=== PATIENT | female | born 1960 | race Caucasian/White ===

== ENCOUNTER → 2016-12-16 | Outpatient (CLI) | payer BC ==
--- NOTE | 2016-12-17 08:50 | MM ---
Reason for exam: screening (asymptomatic). Last mammogram was performed 1 year and 4 months ago. History: Family history of breast cancer in aunt at age 65 and breast cancer in relative. Benign right mammotome panel of the right breast, April 08, 2012. Benign excisional biopsy of the left breast, April 01, 1998. Physical Findings: A clinical breast exam by your physician is recommended on an annual basis and results should be correlated with mammographic findings. MG Screening Mammo w CAD Bilateral CC and MLO view(s) were taken. XCCL view(s) were taken of the right breast. Prior study comparison: August 26, 2015, bilateral MG screening mammo w CAD. March 22, 2012, [facility] DIGITAL RIGHT MAMMOGRAM w/CAD. There are scattered fibroglandular densities. There is no discrete abnormality. No significant changes when compared with prior studies. ASSESSMENT: Negative, BI-RAD 1 RECOMMENDATION: Routine screening mammogram of both breasts in 1 year.
== END | disposition home or self-care (01) ==
LOC: RADMAMWWP 08:25
PROVIDERS: ATTEND Family Medicine
DX: Z12.31 Encounter for screening mammogram for malignant neoplasm of breast (principal)

== ENCOUNTER 2018-09-16 10:49 | Day surgery (SDC) | payer BC ==
[2018-09-14 11:25] VITALS: BMI 41.1
[~2018-09-16 10:49] MED LIST: LACTATED RINGERS 1,000 ML IV SCH; LIDOCAINE 1% 20 ML VIAL (10MG/ML) FOR IV START INTRADERMA PRN
[2018-09-16 11:03] VITALS: RESP 16
[2018-09-16 11:06] VITALS: TEMP 98.4
[2018-09-16] MEDS ORDERED: LIDOCAINE 1% 20 ML VIAL (10MG/ML) FOR IV START INTRADERMA ONE (11:14)
[2018-09-16] MEDS ORDERED: LIDOCAINE 1% INJ 10MG/ML (20 ML MDV) ONE (11:45)
[2018-09-16] MEDS ORDERED: PROPOFOL 10 MG/ML 20 ML VIAL IV ONE (11:45)
[2018-09-16] MEDS ORDERED: GLYCOPYRROLATE 0.2 MG/ML 2 ML VIAL ONE (11:45)
--- NOTE | 2018-09-16 11:57 | P.PCN ---
Date of Procedure: 09/16/18 Procedure(s) Performed: BRIEF HISTORY: Patient is a 57-year-old, pleasant, white female, scheduled for an upper endoscopy as a part of evaluation of long-standing history of GERD and worsening dysphagia for the last few weeks duration. She is maintained on omeprazole 20 mg twice daily.. PROCEDURE PERFORMED: Esophagogastroduodenoscopy with biopsy and dilation. PREOPERATIVE DIAGNOSIS: Long-standing history of GERD/Dysphagia. IV sedation per anesthesia. PROCEDURE: After informed consent was obtained, the patient was brought into the endoscopy unit. IV sedation was administered by Anesthesia under continuous monitoring. Initially the Olympus GIF-140 video endoscope was inserted into the mouth. Esophagus intubated without any difficulty. It was gradually advanced into the stomach and duodenum and carefully examined. The bulb and the second part of the duodenum appeared normal. The scope at this time was withdrawn to the stomach, adequately insufflated with air, and upon careful examination, mucosa of the antrum, body, cardia and the fundus appeared normal. The scope was then withdrawn into the esophagus. The GE junction was located at 39 cm from the incisors. There was a distal esophageal stricture identified and this was dilated using 15 mm TTS balloon for total of 30 seconds. Following this there was mucosal tear with oozing identified and hence further dilation was not performed. The mucosa of the rest of the esophagus had some thickened esophageal folds and longitudinal ridges and furrows suspicious for years of age esophagitis and has multiple biopsies were done from this area. The rest of the esophagus appeared normal Tand the patient tolerated the procedure well. IMPRESSION: 1. Distal esophageal stricture status post balloon dilation using 15 mm TTS balloon as described above. 2. Moderate size hiatal hernia. 3. Thickened esophageal folds in the mid and distal esophagus status post biopsy to rule out eosinophilic esophagitis RECOMMENDATIONS: The findings of this examination were discussed with the patient as well as his family. She was advised to remain on a clear liquid diet and continue with Prilosec 20 mg twice daily and follow antireflux measures. She'll be seen in the office in 6 weeks.
[2018-09-16 12:35] VITALS: BP 128/84; PULSE 93
== END 2018-09-16 12:50 | disposition home or self-care (01) ==
LOC: ORWHC2ENDO 10:49
PROVIDERS: ATTEND Internal Medicine Gastroenterology
DX: K22.2 Esophageal obstruction (principal); K21.0 Gastro-esophageal reflux disease with esophagitis; K44.9 Diaphragmatic hernia without obstruction or gangrene; J45.909 Unspecified asthma, uncomplicated; Z79.899 Other long term (current) drug therapy
CPT/HCPCS: 88305; 88313; 43239; 43249; J2001; J2704; C1726

== ENCOUNTER 2019-02-07 13:47 | Inpatient (IN) | payer BC ==
[2019-02-07] MEDS ORDERED: ACETAMINOPHEN TAB 500 MG TAB PO STA (14:12)
--- NOTE | 2019-02-07 14:18 | ED ---
General Adult HPI - General Chief complaint: Shortness of Breath Stated complaint: LYNNETTE, cough Time Seen by Provider: 02/07/19 13:56 Source: patient, family, RN notes reviewed Mode of arrival: wheelchair Limitations: no limitations - History of Present Illness Initial comments: Patient is a pleasant 58-year-old female presenting to the emergency department with difficulty in breathing. Patient has known history of asthma. Symptoms started bothering her mostly today. Patient does have chills. Patient does have cough with clear sputum. Symptoms are somewhat similar to previous asthma. No leg pain or leg swelling. No chest pain. - Related Data Home Medications Medication Instructions Recorded Confirmed Albuterol Nebulized [Ventolin 2.5 mg INHALATION RT-Q4H PRN 09/07/17 02/07/19 Nebulized] Loratadine [Claritin] 10 mg PO DAILY 09/14/18 02/07/19 Omeprazole 20 mg PO BID 09/14/18 02/07/19 Beclomethasone Dip 80 Mcg/Puff 2 puff INHALATION RT-BID 02/07/19 02/07/19 [Qvar 80 mcg] Montelukast [Singulair] 10 mg PO HS 02/07/19 02/07/19 Allergies Allergy/AdvReac Type Severity Reaction Status Date / Time No Known Allergies Allergy Verified 02/07/19 14:12 Review of Systems ROS Statement: Those systems with pertinent positive or pertinent negative responses have been documented in the HPI. ROS Other: All systems not noted in ROS Statement are negative. Constitutional: Reports: fever, chills Eyes: Denies: eye pain ENT: Denies: ear pain Respiratory: Reports: cough, dyspnea Cardiovascular: Denies: chest pain Endocrine: Reports: fatigue Gastrointestinal: Denies: abdominal pain Genitourinary: Denies: dysuria Musculoskeletal: Denies: back pain Skin: Denies: rash Neurological: Denies: weakness Past Medical History Past Medical History: Asthma, GERD/Reflux Additional Past Medical History / Comment(s): dysphagia History of Any Multi-Drug Resistant Organisms: None Reported Past Surgical History: Breast Surgery Additional Past Surgical History / Comment(s): breast biopsy,EGD Past Anesthesia/Blood Transfusion Reactions: No Reported Reaction Additional Past Anesthesia/Blood Transfusion Reaction / Comment(s): no hx blood transfusion Past Psychological History: No Psychological Hx Reported Smoking Status: Never smoker Past Alcohol Use History: None Reported Past Drug Use History: None Reported - Past Family History Mother Family Medical History: No Reported History General Exam Limitations: no limitations General appearance: alert, in no apparent distress Head exam: Present: atraumatic Eye exam: Present: normal appearance, PERRL ENT exam: Present: normal oropharynx Neck exam: Present: normal inspection Respiratory exam: Present: rhonchi Cardiovascular Exam: Present: tachycardia GI/Abdominal exam: Present: soft. Absent: tenderness, guarding Extremities exam: Present: normal inspection. Absent: pedal edema, calf tenderness Neurological exam: Present: alert Psychiatric exam: Present: normal affect, normal mood Skin exam: Present: normal color Course Vital Signs 02/07/19 02/07/19 13:57 14:50 Temperature 99.0 F Pulse Rate 120 H Respiratory 24 20 Rate Blood Pressure 111/71 O2 Sat by Pulse 95 Oximetry EKG Findings - EKG Comments: EKG Findings:: Sinus tachycardia 122. SD 116. QRS 94. QT 334. QTC 475. Normal axis. Normal QRS. Nonspecific T waves. Medical Decision Making - Medical Decision Making Patient reevaluated and starting to become short of breath again. Patient had an alleged treatment just prior to arrival and originally did not want one however is now receptive. Case was discussed in detail with Dr. Ross, covering for Dr. Walden who did come evaluate patient and will admit. D-dimer returned slightly elevated and computed tomography scan will be ordered. - Lab Data Result diagrams: 02/07/19 14:31 02/07/19 14:31 Lab Results 02/07/19 02/07/19 02/07/19 Range/Units 14:31 14:31 14:31 WBC 13.6 H (3.8-10.6) k/uL RBC 5.34 (3.80-5.40) m/uL Hgb 14.3 (11.4-16.0) gm/dL Hct 44.8 (34.0-46.0) % MCV 83.9 (80.0-100.0) fL MCH 26.7 (25.0-35.0) pg MCHC 31.9 (31.0-37.0) g/dL RDW 15.9 H (11.5-15.5) % Plt Count 303 (150-450) k/uL PT 9.7 (9.0-12.0) sec INR 0.9 (<1.2) APTT 21.1 L (22.0-30.0) sec D-Dimer 0.88 H (<0.60) mg/L FEU Sodium 139 (137-145) mmol/L Potassium 4.7 (3.5-5.1) mmol/L Chloride 105 (98-107) mmol/L Carbon Dioxide 24 (22-30) mmol/L Anion Gap 10 mmol/L BUN 27 H (7-17) mg/dL Creatinine 1.13 H (0.52-1.04) mg/dL Est GFR (CKD-EPI)AfAm 61 (>60 ml/min/1.73 sqM) Est GFR (CKD-EPI)NonAf 53 (>60 ml/min/1.73 sqM) Glucose 170 H (74-99) mg/dL Calcium 8.7 (8.4-10.2) mg/dL Total Bilirubin 1.5 H (0.2-1.3) mg/dL AST 34 (14-36) U/L ALT 24 (9-52) U/L Alkaline Phosphatase 99 (38-126) U/L Total Creatine Kinase (30-135) U/L CK-MB (CK-2) (0.0-2.4) ng/mL CK-MB (CK-2) Rel Index Troponin I (0.000-0.034) ng/mL Total Protein 7.4 (6.3-8.2) g/dL Albumin 4.0 (3.5-5.0) g/dL Influenza Type A RNA (Not Detectd) Influenza Type B (PCR) (Not Detectd) 02/07/19 02/07/19 Range/Units 14:31 14:47 WBC (3.8-10.6) k/uL RBC (3.80-5.40) m/uL Hgb (11.4-16.0) gm/dL Hct (34.0-46.0) % MCV (80.0-100.0) fL MCH (25.0-35.0) pg MCHC (31.0-37.0) g/dL RDW (11.5-15.5) % Plt Count (150-450) k/uL PT (9.0-12.0) sec INR (<1.2) APTT (22.0-30.0) sec D-Dimer (<0.60) mg/L FEU Sodium (137-145) mmol/L Potassium (3.5-5.1) mmol/L Chloride (98-107) mmol/L Carbon Dioxide (22-30) mmol/L Anion Gap mmol/L BUN (7-17) mg/dL Creatinine (0.52-1.04) mg/dL Est GFR (CKD-EPI)AfAm (>60 ml/min/1.73 sqM) Est GFR (CKD-EPI)NonAf (>60 ml/min/1.73 sqM) Glucose (74-99) mg/dL Calcium (8.4-10.2) mg/dL Total Bilirubin (0.2-1.3) mg/dL AST (14-36) U/L ALT (9-52) U/L Alkaline Phosphatase (38-126) U/L Total Creatine Kinase 115 (30-135) U/L CK-MB (CK-2) 0.9 (0.0-2.4) ng/mL CK-MB (CK-2) Rel Index 0.8 Troponin I <0.012 (0.000-0.034) ng/mL Total Protein (6.3-8.2) g/dL Albumin (3.5-5.0) g/dL Influenza Type A RNA Not Detected (Not Detectd) Influenza Type B (PCR) Not Detected (Not Detectd) Disposition Clinical Impression: Asthmatic bronchitis Disposition: ADMITTED IP TO THIS HOSP Is patient prescribed a controlled substance at d/c from ED?: No Referrals: Rudolph Walden III, MD [Primary Care Provider] - 1-2 days Decision Time: 15:28
[2019-02-07 14:54] LABS: Calcium 8.7 mg/dL (8.4-10.2); Total Bilirubin 1.5 mg/dL (0.2-1.3); Total Protein 7.4 g/dL (6.3-8.2)
[2019-02-07 14:59] LABS: Potassium 4.7 mmol/L (3.5-5.1)
[2019-02-07 15:05] LABS: Creatine Kinase 115 U/L (30-135)
--- NOTE | 2019-02-07 15:06 | XR ---
EXAMINATION TYPE: XR chest 2V DATE OF EXAM: 02/07/2019 COMPARISON: NONE HISTORY: History of asthma or shortness of breath and cough. TECHNIQUE: Frontal and lateral views of the chest are obtained. FINDINGS: Overlying EKG leads are present. There is chronic parenchymal change without suspicious foc al air space opacity, pleural effusion, or pneumothorax seen. The cardiac silhouette size is upper l imits of normal. An azygos lobe/fissure is seen. The osseous structures are intact. IMPRESSION: Chronic changes without acute pulmonary process.
[2019-02-07 15:14] LABS: INR 0.9 (<1.2); Partial Thromboplastin Time 21.1 sec (22.0-30.0); Prothrombin Time 9.7 sec (9.0-12.0)
[2019-02-07 15:18] LABS: Creatine Kinase MB 0.9 ng/mL (0.0-2.4); Troponin I <0.012 ng/mL (0.000-0.034)
[2019-02-07 15:19] LABS: Basophils # (A) 0.1 k/uL (0-0.2); Basophils % (A) 1 %; Eosinophils # (A) 0.1 k/uL (0-0.7); Eosinophils % (A) 1 %; HCT 44.8 % (34.0-46.0); HGB 14.3 gm/dL (11.4-16.0); Lymphocytes # (A) 0.3 k/uL (1.0-4.8); Lymphocytes % (A) 2 %; MCH 26.7 pg (25.0-35.0); MCHC 31.9 g/dL (31.0-37.0); MCV 83.9 fL (80.0-100.0); Mean Platelet Volume 7.4; Monocytes # (A) 0.7 k/uL (0-1.0); Monocytes % (A) 5 %; Neutrophils # (A) 12.4 k/uL (1.3-7.7); Neutrophils % (A) 91 %; Platelet Count 303 k/uL (150-450); RBC 5.34 m/uL (3.80-5.40); RDW 15.9 % (11.5-15.5); WBC 13.6 k/uL (3.8-10.6)
[2019-02-07 15:23] LABS: D-Dimer 0.88 mg/L FEU (<0.60)
[2019-02-07] MEDS ORDERED: IPRATROPIUM-ALBUTEROL 3 ML NEB INHALATION STA (15:27)
[2019-02-07] MEDS ORDERED: methylPREDNISolone SOD SUCCI 125 MG/2 ML VIAL IV STA (15:28)
[2019-02-07] MEDS ORDERED: IPRATROPIUM-ALBUTEROL 3 ML NEB INHALATION PRN (15:28)
--- NOTE | 2019-02-07 16:10 | CT ---
EXAMINATION TYPE: CT angio chest DATE OF EXAM: 02/07/2019 COMPARISON: Chest x-ray same date, CT 12/17/2014 HISTORY: dyspnea, cough CT DLP: 7541 mGycm Automated exposure control for dose reduction was used. CONTRAST: CTA scan of the thorax is performed with IV Contrast, patient injected with 80 mL of Isovue 370, pulm onary embolism protocol. MIP images are created and reviewed. 3D reconstructed images are created o n an independent workstation and reviewed. FINDINGS: LUNGS: The lungs are remarkable for groundglass nodularity bilaterally. Calcified nodule present in t he right middle lobe as on prior exam. There is no pleural effusion or pneumothorax seen. The trache obronchial tree is patent. Probable area of scarring in the left lower lobe. Azygos lobe is noted inc identally. AORTA: No additional significant abnormality is seen. MEDIASTINUM: There is satisfactory enhancement of the pulmonary artery however there are segmental br anches which do not show optimal enhancement. There are no greater than 1 cm hilar or mediastinal ly mph nodes. No pericardial effusion is seen. OTHER: There is a hiatal hernia with partial intrathoracic stomach. The liver shows low attenuation possibly due to hepatic steatosis. IMPRESSION: FINDINGS COULD BE RELATED TO MULTIFOCAL BRONCHOPNEUMONIA, CRYPTOGENIC ORGANIZING PNEUMONIA, ATYPICAL PULMONARY EDEMA OR POSSIBLY ALVEOLAR HEMORRHAGE, ATYPICAL INFECTION OR HYPERSENSITIVITY PNEUMONITIS, DRUG TOXICITY, RESPIRATORY BRONCHIOLITIS INTERSTITIAL LUNG DISEASE. NO DEFINITE FILLING DEFECT TO SUG GEST PULMONARY EMBOLISM. DIFFICULT TO EXCLUDE SEGMENTAL PULMONARY EMBOLISM DESCRIBED. ADDITIONAL F INDINGS ABOVE.
[2019-02-07] MEDS ORDERED: TEMAZEPAM 15 MG CAP PO PRN (16:11)
[2019-02-07] MEDS ORDERED: ALPRAZolam 0.25 MG TAB PO PRN (16:11)
[2019-02-07] MEDS ORDERED: AZITHROMYCIN 500 MG in SODIUM CHLORIDE 0.9% 250 ML IVPB STA (16:20)
[2019-02-07] MEDS ORDERED: PNEUMONIA PROTOCOL UTILIZED 1 EACH MISC PO PRN (16:20)
[2019-02-07] MEDS: SODIUM CHLORIDE 0.9% 1,000 ML IV SCH (16:52)
[2019-02-07 17:45] LABS: Glucose,Whole Blood 189 mg/dL (75-99)
[2019-02-07 18:08] VITALS: BMI 42.7
[2019-02-07] MEDS: SODIUM CHLORIDE 0.45% 1,000 ML IV SCH (18:15)
[2019-02-07] MEDS: PANTOPRAZOLE 40 MG TABLET PO SCH (18:16)
[2019-02-07] MEDS: INSULIN ASPART (NovoLOG) 100 UNIT/ML VIAL SQ SCH ×2 (18:16→20:44)
--- NOTE | 2019-02-07 19:24 | HP ---
HISTORY AND PHYSICAL DATE OF SERVICE: 02/07/2019 CHIEF COMPLAINT: Shortness of breath. HISTORY OF PRESENT ILLNESS: This 58-year-old woman with a past medical history of multiple medical problems including history of bronchial asthma, history of GERD, history of dysphagia, history of EGD being followed by Dr. Walden in the outpatient setting, not feeling well over the past several days. The patient also had remote exposure to passive smoking also. The patient had increasing shortness of breath with cough and sputum. Patient came to [facility]. Chest x-ray was done showed evidence of possible interstitial pneumonia. The patient admitted for further evaluation and treatment. There is no history of fever, rigors or chills. No history of headache, loss of consciousness or seizures. PAST MEDICAL HISTORY: Asthma, GERD, dysphagia. MEDICATIONS: Prior to admission, home medications are: 1. QVAR 80 mcg 2 puffs b.i.d. 2. Omeprazole 20 mg b.i.d. 3. Singulair 10 mg q.h.s. 4. Claritin 10 mg daily. 5. Ventolin 2.5 q.4 p.r.n. ALLERGIES: Allergies are none. FAMILY HISTORY: History of heart disease or strokes in family. SOCIAL HISTORY: No history of smoking. History of alcohol in the past. Past exposure to smoking a long time ago. REVIEW OF SYSTEMS: ENT: No diminished hearing. CARDIOVASCULAR as mentioned earlier. RESPIRATORY: As mentioned earlier. GI no nausea or vomiting. no dysuria. NERVOUS SYSTEM: No numbness or weakness. ALLERGY/IMMUNOLOGY: No asthma or hayfever. MUSCULOSKELETAL: As mentioned earlier. HEMATOLOGY/ONCOLOGY: No history of anemia. ENDOCRINE: No history of diabetes. CONSTITUTIONAL: As mentioned earlier. DERMATOLOGY negative. RHEUMATOLOGY is negative. PSYCHIATRIC: Negative. PHYSICAL EXAM: Patient is alert, oriented x3. The pulse is 120, blood pressure 111/71, respiration 24, temperature 99 degrees, pulse ox 94% on room air. HEENT: Conjunctivae normal. NECK: No JVD. CARDIOVASCULAR: S1, S2 muffled. RESPIRATORY: Breath sounds diminished in the bases. Bilateral scattered rhonchi and crackles. Expiratory wheezing also present. ABDOMEN: Soft, nontender. No mass palpable. LEGS: No edema. No swelling. NERVOUS SYSTEM: Higher functions as mentioned earlier. Moves all 4 limbs. No focal motor or sensory deficits. LYMPHATICS: No lymph nodes palpable in the neck, axillae or groin. SKIN: No ulcer, no rash. No bleeding. JOINTS: No active deforming arthropathy. LAB STUDIES: WBC 13.2, hemoglobin 14.3. D-dimer 0.88 and creatinine is 1.13. ASSESSMENT: 1. Acute bronchial asthma acute exacerbation with acute purulent tracheobronchitis or early bronchopneumonia with failure of outpatient treatment. 2. Increased creatinine with possibly mild acute renal failure with acute tubular necrosis and prerenal renal failure. 3. Increased WBC. 4. History of bronchial asthma. 5. Elevated D-dimer. 6. Gastroesophageal reflux disease. 7. Dysphagia history. 8. History of breast biopsy. 9. History of EGD. RECOMMENDATIONS AND DISCUSSION: In this 58-year-old woman who presented with multiple complex medical issues, we will monitor the patient closely, continue the current medications, management and symptomatic treatment. We will initiate broad-spectrum IV antibiotics, steroids, cultures and also consult Dr. Hagan. Resume the home medications. Prognosis guarded because of multiple complex medical illness. Further recommendations to follow. A copy of dictation being forwarded to Dr. Walden who is the primary physician. Discussed with the family at length. MMODL / IJN: [id number] /
[2019-02-07] MEDS: ACETAMINOPHEN TAB 500 MG TAB PO PRN (19:30)
[2019-02-07] MEDS: IPRATROPIUM-ALBUTEROL 3 ML NEB INHALATION SCH (20:14)
[2019-02-07] MEDS: BUDESONIDE 1 MG/2 ML NEBU INHALATION SCH (20:15)
[2019-02-07] MEDS: FORMOTEROL FUMARATE 20 MCG/2 ML NEBU INHALATION SCH (20:15)
[2019-02-07 20:30] LABS: Glucose,Whole Blood 272 mg/dL (75-99)
[2019-02-07] MEDS: HEPARIN SODIUM,PORCINE 5,000 UNIT/ML 1 ML VIAL SQ SCH (20:44)
[2019-02-07] MEDS: MONTELUKAST 10 MG TAB PO SCH (20:45)
[2019-02-07] MEDS: methylPREDNISolone SOD SUCCI 125 MG/2 ML VIAL IV SCH (23:55)
[2019-02-08] MEDS: SODIUM CHLORIDE 0.9% 1,000 ML IV SCH ×4 (03:07→23:22)
[2019-02-08] MEDS: methylPREDNISolone SOD SUCCI 125 MG/2 ML VIAL IV SCH ×4 (05:57→23:22)
[2019-02-08] MEDS: ACETAMINOPHEN TAB 500 MG TAB PO PRN (06:00)
[2019-02-08] MEDS: IPRATROPIUM-ALBUTEROL 3 ML NEB INHALATION SCH ×4 (07:06→20:27)
[2019-02-08] MEDS: BUDESONIDE 1 MG/2 ML NEBU INHALATION SCH ×2 (07:06→20:27)
[2019-02-08] MEDS: FORMOTEROL FUMARATE 20 MCG/2 ML NEBU INHALATION SCH ×2 (07:06→20:28)
[2019-02-08] MEDS ORDERED: PANTOPRAZOLE 40 MG TABLET PO SCH (07:30)
[2019-02-08 08:15] LABS: Basophils % (A) 0 %; Eosinophils % (A) 0 %; HGB 12.3 gm/dL (11.4-16.0); Lymphocytes # (A) 0.8 k/uL (1.0-4.8); Lymphocytes % (A) 4 %; MCH 26.8 pg (25.0-35.0); MCHC 31.6 g/dL (31.0-37.0); MCV 84.9 fL (80.0-100.0); Mean Platelet Volume 6.9; Monocytes # (A) 0.2 k/uL (0-1.0); Monocytes % (A) 1 %; Neutrophils # (A) 18.5 k/uL (1.3-7.7); Neutrophils % (A) 94 %; Platelet Count 366 k/uL (150-450); RDW 15.6 % (11.5-15.5); WBC 19.6 k/uL (3.8-10.6)
[2019-02-08 08:27] LABS: African American GFR (CKD) >90 (>60 ml/min/1.73 sqM); Anion Gap 9 mmol/L; Blood Urea Nitrogen 21 mg/dL (7-17); Calcium 8.1 mg/dL (8.4-10.2); Carbon Dioxide 23 mmol/L (22-30); Chloride 108 mmol/L (98-107); Glucose 171 mg/dL (74-99); Non-African American GFR(CKD) >90 (>60 ml/min/1.73 sqM); Potassium 3.8 mmol/L (3.5-5.1); Sodium 140 mmol/L (137-145)
[2019-02-08] MEDS: HEPARIN SODIUM,PORCINE 5,000 UNIT/ML 1 ML VIAL SQ SCH ×2 (09:04→20:15)
[2019-02-08] MEDS: LORATADINE 10 MG TAB PO SCH (09:04)
[2019-02-08] MEDS: INSULIN ASPART (NovoLOG) 100 UNIT/ML VIAL SQ SCH ×4 (09:04→20:17)
[2019-02-08] MEDS: PANTOPRAZOLE 40 MG TABLET PO SCH ×2 (09:04→17:15)
--- NOTE | 2019-02-08 09:52 | XR ---
EXAMINATION TYPE: XR chest 2V DATE OF EXAM: 02/08/2019 COMPARISON: 02/07/2019 HISTORY: Pneumonia and bronchitis. Follow-up exam. TECHNIQUE: Frontal and lateral views of the chest are obtained. FINDINGS: The groundglass nodules and tree-in-bud opacity seen on the prior CT of 02/07/2019 are bett er distinguish on CT. Interstitial prominence is noted throughout with no focal consolidation. Platel jie right lateral lower lung atelectasis is present. Cardiomediastinal silhouette is within normal li mits. Osseous structures appear intact. IMPRESSION: The infectious or inflammatory process seen on the prior CT of 02/07/2019 is much better demonstrated on CT given the groundglass composition. Radiograph appears similar to the prior of 02/07.
--- NOTE | 2019-02-08 11:26 | P.CNPUL ---
History of Present Illness Consult date: 02/08/19 Requesting physician: Yoselin Ross Reason for consult: dyspnea, abnormal CXR/CT Chief complaint: Shortness of breath, cough, congestion History of present illness: This is a pleasant 58-year-old female patient who follows with Dr. Walden is her primary care physician. She has a history of gastroesophageal reflux disease, obesity, dysphagia, mild intermittent chronic bronchial asthma. She is a lifelong nonsmoker. She was recently seen as a new patient by Dr. Clayton. FEV1 value of 83% of predicted. He initiated her on Qvar and Singulair and she was to return to the office later this month. She presented here to the emergency room yesterday with complaints of increasing shortness of breath, cough and congestion. Chest x-ray revealed chronic changes but no acute pulmonary process. D-dimer slightly elevated and a CT angiogram was performed. There was multifocal bronchopneumonia, cryptogenic organizing pneumonia, atypical pulmonary edema possibly alveolar hemorrhage. Atypical infection or hypersensitivity pneumonitis, drug toxicity, respiratory bronchiolitis interstitial lung disease within the differential. No significant findings for pulmonary embolism. White count 19.6. Hemoglobin 12.3. Creatinine 0.72. She has been initiated on DuoNeb inhalations, Pulmicort and Perforomist inhalations, IV Solu-Medrol. Antibiotics in the form of ceftriaxone and azithromycin. She is seen today in consultation on the regular medical floor. She is awake and alert in no acute distress. She is breathing a bit easier today as compared to yesterday. Maintaining O2 saturations in the 90s on 2 L/m per nasal cannula. She's been afebrile. Hemodynamically stable. Review of Systems REVIEW OF SYSTEMS: CONSTITUTIONAL: Denies any recent significant weight loss or weight gain. EYES: Denies change in vision. EARS, NOSE, MOUTH, THROAT: Denies headaches, denies sore throat. CARDIOVASCULAR: Denies chest pain, palpitations or syncopal episodes. RESPIRATORY: Positive for shortness of breath, cough, congestion no hemoptysis. GASTROINTESTINAL: Denies change in appetite, denies abdominal pain GENITOURINARY: Denies hematuria, denies infections. MUSKULOSKELETAL: Denies pain, denies swelling. INTEGUMENTARY: Denies rash, denies eczema. NEUROLOGICAL: Denies recent memory loss, no recent seizure activity. PSYCHIATRIC: Denies anxiety, denies depression. HEMATOLOGIC/LYMPHATIC: Denies anemia, denies enlarged lymph nodes. Past Medical History Past Medical History: Asthma, GERD/Reflux Additional Past Medical History / Comment(s): dysphagia, asthma History of Any Multi-Drug Resistant Organisms: None Reported Past Surgical History: Breast Surgery Additional Past Surgical History / Comment(s): breast biopsy,EGD for dilatation Past Anesthesia/Blood Transfusion Reactions: No Reported Reaction Additional Past Anesthesia/Blood Transfusion Reaction / Comment(s): no hx blood transfusion Smoking Status: Never smoker - Past Family History Mother Family Medical History: No Reported History Medications and Allergies Home Medications Medication Instructions Recorded Confirmed Type Albuterol Nebulized [Ventolin 2.5 mg INHALATION RT-Q4H PRN 09/07/17 02/07/19 History Nebulized] Loratadine [Claritin] 10 mg PO DAILY 09/14/18 02/07/19 History Omeprazole 20 mg PO BID 09/14/18 02/07/19 History Beclomethasone Dip 80 Mcg/Puff 2 puff INHALATION RT-BID 02/07/19 02/07/19 History [Qvar 80 mcg] Montelukast [Singulair] 10 mg PO HS 02/07/19 02/07/19 History Allergies Allergy/AdvReac Type Severity Reaction Status Date / Time No Known Allergies Allergy Verified 02/07/19 14:12 Physical Exam Vitals: Vital Signs Temp Pulse Pulse Resp BP BP Pulse Ox 02/08/19 07:29 104 H 02/08/19 07:21 100 02/08/19 07:06 104 H 02/08/19 05:21 98.1 F 104 H 16 113/66 97 02/07/19 20:24 80 02/07/19 20:15 80 02/07/19 19:56 97.8 F 109 H 24 115/73 96 02/07/19 18:25 106 H 02/07/19 17:59 98.6 F 107 H 17 114/63 95 02/07/19 17:56 99 02/07/19 16:47 78 16 110/63 99 02/07/19 16:01 109 H 02/07/19 15:55 110 H 02/07/19 14:50 20 02/07/19 13:57 99.0 F 120 H 24 111/71 95 Intake and Output 02/07/19 02/08/1902/08/19 22:59 06:59 14:59 Intake Total 565 1598 Balance 565 1598 Intake: Intake, IV Titration 565 1008 Amount Azithromycin 500 mg In 250 Sodium Chloride 0.9% 250 ml @ 250 mls/hr IVPB ONCE STA Rx#:[id number] Sodium Chloride 0.9% 1, 315 1008 000 ml @ 126 mls/hr IV . Q7H57M FRANCES Rx#:[id number] Oral 590 Other: Voiding Method Toilet Toilet # Voids 2 3 GENERAL EXAM: Alert, pleasant 58-year-old female patient, comfortable in no apparent distress. On 2 L nasal cannula. HEAD: Normocephalic. EYES: Normal reaction of pupils, equal size. NOSE: Clear with pink turbinates. THROAT: No erythema or exudates. NECK: No masses, no JVD. CHEST: No chest wall deformity. LUNGS: Equal air entry with end expiratory wheeze, few basilar crackles. CVS: S1 and S2 normal with no audible murmur, regular rhythm. ABDOMEN: No hepatosplenomegaly, normal bowel sounds, no guarding or rigidity. SPINE: No scoliosis or deformity SKIN: No rashes CENTRAL NERVOUS SYSTEM: No focal deficits, tone is normal in all 4 extremities. EXTREMITIES: There is no peripheral edema. No clubbing, no cyanosis. Peripheral pulses are intact. Results - Laboratory Findings CBC and BMP: 02/08/19 07:42 02/08/19 07:42 PT/INR, D-dimer PT 9.7 sec (9.0-12.0) 02/07/19 14:31 INR 0.9 (<1.2) 02/07/19 14:31 D-Dimer 0.88 mg/L FEU (<0.60) H 02/07/19 14:31 Abnormal lab findings: Abnormal Labs 02/07/19 02/07/19 02/07/19 14:31 14:31 14:31 WBC 13.6 H RDW 15.9 H Neutrophils # 12.4 H Lymphocytes # 0.3 L APTT 21.1 L D-Dimer 0.88 H Chloride BUN 27 H Creatinine 1.13 H Glucose 170 H POC Glucose (mg/dL) Plasma Lactic Acid Hari Calcium Total Bilirubin 1.5 H 02/07/19 02/07/19 02/07/19 16:40 17:43 20:29 WBC RDW Neutrophils # Lymphocytes # APTT D-Dimer Chloride BUN Creatinine Glucose POC Glucose (mg/dL) 189 H 272 H Plasma Lactic Acid Hari 3.2 H* Calcium Total Bilirubin 02/07/19 02/08/19 02/08/19 20:35 07:42 07:42 WBC 19.6 H RDW 15.6 H Neutrophils # 18.5 H Lymphocytes # 0.8 L APTT D-Dimer Chloride 108 H BUN 21 H Creatinine Glucose 171 H POC Glucose (mg/dL) Plasma Lactic Acid Hari 3.7 H* Calcium 8.1 L Total Bilirubin 02/08/19 07:42 WBC RDW Neutrophils # Lymphocytes # APTT D-Dimer Chloride BUN Creatinine Glucose POC Glucose (mg/dL) Plasma Lactic Acid Hari 2.2 H* Calcium Total Bilirubin - Diagnostic Findings Chest x-ray: image reviewed CT scan - chest: image reviewed Assessment and Plan Assessment: Impression: #1 Acute exacerbation of mild intermittent chronic bronchial asthma, complicated by nonspecific pneumonitis. #2 Leukocytosis secondary to above. #3 Gastroesophageal reflux disease. #4 History of dysphagia with previous EGD. #5 Lifelong nonsmoker. Plan: The patient was seen and evaluated by Dr. Hagan. Chest x-rays, computed tomography scan and labs all reviewed. Suspect some nonspecific pneumonitis. We will go ahead and continue with the steroids. Follow-up CAT scan in 2 weeks' time. Obtain connective tissue workup including YESENIA level, CRP, RA, IONA and CPK levels, CCP antibodies. In the interim, we'll continue with DuoNeb inhalations, Pulmicort and Perforomist inhalations, Singulair, IV Solu-Medrol, antibiotics in the form of ceftriaxone and azithromycin. We will continue to follow and make further recommendations based on her clinical status. I, the cosigning physician, performed a history & physical examination of the patient. Lungs sounds with end expiratory wheeze, few scattered crackles in the bases. Maintaining good O2 saturations in the 90s on 2 L/m per nasal cannula. I discussed the assessment and plan of care with my nurse practitioner, Perlita Perkins. I attest to the above note as dictated by her. Time with Patient: Greater than 30
[2019-02-08 11:47] LABS: Glucose,Whole Blood 214 mg/dL (75-99)
[2019-02-08 12:51] LABS: C Reactive Protein 149.7 mg/L (<10.0)
--- NOTE | 2019-02-08 15:02 | PN ---
PROGRESS NOTE DATE OF SERVICE: 02/08/2019 This is a 58-year-old woman who was admitted with acute bronchial asthma, acute exacerbation, acute purulent tracheobronchitis, early bronchopneumonia with failure of outpatient treatment, also had elevated creatinine, possibly mild acute renal failure with acute tubular necrosis with prerenal failure. The patient will be closely monitored at this time. The patient is feeling slightly better. Chest x-ray repeated today which is personally reviewed by me showed some increased bronchovascular markings in the right lower part. No chest pain, no palpitation. PHYSICAL EXAM: Alert and oriented x3. Pulse is 72, blood pressure 130/60, respiration 16, temperature 98 degrees, pulse ox 94% on 2 L. HEENT: Conjunctivae normal. NECK: No jugular venous distension. CARDIOVASCULAR: S1, S2, muffled. RESPIRATION: Breath sounds diminished at the bases, scattered rhonchi, no crackles. ABDOMEN: Soft, nontender. LEGS: No edema, no swelling. NERVOUS SYSTEM: No focal deficits. LAB STUDIES: WBC is 19.2, hemoglobin is 12.3. Lactic acid 2.2 and 2.9. C-reactive protein is 149. ASSESSMENT: 1. Acute bronchial asthma, acute exacerbation with acute purulent tracheobronchitis or early bronchopneumonia in the lower lobes, right more the left with failure of outpatient treatment. 2. Elevated lactic acid with possible sepsis, present on admission. 3. Increased creatinine with possible mild acute renal failure with acute tubular necrosis, prerenal renal failure. 4. Increased WBC. 5. History of bronchial asthma. 6. Elevated D-dimer. 7. Gastroesophageal reflux disease. 8. Dysphagia history. 9. History of breast biopsy. 10.History of EGD. RECOMMENDATION: Recommend to continue current management and symptomatic treatment. Continue with the broad-spectrum IV antibiotics. Continue steroids. Continue with cautious IV fluids, otherwise Dr. Hagan has seen the patient and continue to monitor chest was reviewed. Prognosis guarded. Further recommendations to follow. Clinically, she is feeling slightly better though. Further recommendations to follow. Connective tissue workup was also recommended by Dr. Hagan. Further recommendations to follow. MMODL / IJN: [id number] /
--- NOTE | 2019-02-08 15:28 | P.CONS ---
History of Present Illness - Reason for Consult Consult date: 02/08/19 sepsis Requesting physician: Yoselin Ross - Chief Complaint Shortness of breath and cough 1 day - History of Present Illness Patient is a 58 year female with a past medical history significant for asthmatic bronchitis presenting to the ER at [facility] yesterday which she complains of increased shortness of breath and cough 1 day the patient says she was not feeling well for few days prior to yesterday however it hit her hard yesterday to the point that she couldn't breathe the patient did have a mild cough which has been mostly dry in nature. Denies having any pleuritic chest pain and no URI symptoms no nausea no vomiting and no abdominal pain no diarrhea and no choking on the food patient did have some chills with these symptoms the patient was evaluated by the physician, on arrival to the patient did have low-grade fever of 99 the patient did have elevated white count 13.6 that is up to 19.6 today, the patient did have a chest x-ray that did not show any acute changes the patient had did have C D'Evelio that was negative for PE however did shows evidence of multifocal bronchopneumonia/cryptogenic organizing pneumonia, the patient is currently being treated with Rocephin and Zithromax and Solu-Medrol infectious disease was consulted for further recommendation regarding antibiotic therapy, patient denies any history of recent antibiotic exposure or hospitalization Review of Systems Positive point has been mentioned in the HPI rest of the systems are negative Past Medical History Past Medical History: Asthma, GERD/Reflux Additional Past Medical History / Comment(s): dysphagia, asthma History of Any Multi-Drug Resistant Organisms: None Reported Past Surgical History: Breast Surgery Additional Past Surgical History / Comment(s): breast biopsy,EGD for dilatation Past Anesthesia/Blood Transfusion Reactions: No Reported Reaction Additional Past Anesthesia/Blood Transfusion Reaction / Comm: no hx blood transfusion Smoking Status: Never smoker - Past Family History Mother Family Medical History: No Reported History Medications and Allergies Home Medications Medication Instructions Recorded Confirmed Type Albuterol Nebulized [Ventolin 2.5 mg INHALATION RT-Q4H PRN 09/07/17 02/07/19 History Nebulized] Loratadine [Claritin] 10 mg PO DAILY 09/14/18 02/07/19 History Omeprazole 20 mg PO BID 09/14/18 02/07/19 History Beclomethasone Dip 80 Mcg/Puff 2 puff INHALATION RT-BID 02/07/19 02/07/19 History [Qvar 80 mcg] Montelukast [Singulair] 10 mg PO HS 02/07/19 02/07/19 History Allergies Allergy/AdvReac Type Severity Reaction Status Date / Time No Known Allergies Allergy Verified 02/07/19 14:12 Physical Exam Vitals: Vital Signs Temp Pulse Pulse Resp BP BP Pulse Ox 02/08/19 11:26 96 02/08/19 11:13 92 02/08/19 08:00 72 16 02/08/19 07:29 104 H 02/08/19 07:21 100 02/08/19 07:06 104 H 02/08/19 07:00 98 F 72 16 113/69 95 02/08/19 05:21 98.1 F 104 H 16 113/66 97 02/07/19 20:24 80 02/07/19 20:15 80 02/07/19 19:56 97.8 F 109 H 24 115/73 96 02/07/19 18:25 106 H 02/07/19 17:59 98.6 F 107 H 17 114/63 95 02/07/19 17:56 99 02/07/19 16:47 78 16 110/63 99 02/07/19 16:01 109 H 02/07/19 15:55 110 H 02/07/19 14:50 20 Intake and Output 02/07/19 02/08/19 02/08/19 22:59 06:59 14:59 Intake Total 565 1598 1008 Balance 565 1598 1008 Intake: Intake, IV Titration 565 1008 1008 Amount Azithromycin 500 mg In 250 Sodium Chloride 0.9% 250 ml @ 250 mls/hr IVPB ONCE STA Rx#:[id number] Sodium Chloride 0.9% 1, 315 1008 1008 000 ml @ 126 mls/hr IV . Q7H57M [facility] Rx#:[id number] Oral 590 Other: Voiding Method Toilet Toilet Toilet # Voids 2 3 GENERAL DESCRIPTION: Middle-aged female lying in bed, no distress. No tachypnea or accessory muscle of respiration use. HEENT: Shows Pallor , no scleral icterus. Oral mucous membrane is dry. No pharyngeal erythema or thrush NECK: Trachea central, no thyromegaly. LUNGS: Unlabored breathing. Decreased intensity of breath sounds. No wheeze or crackle. HEART: S1, S2, regular rate and rhythm. No loud murmur ABDOMEN: Soft, no tenderness , guarding or rigidity, no organomegaly EXTREMITIES: No edema of feet. SKIN: No rash, no masses palpable. NEUROLOGICAL: The patient is awake, alert, oriented x3, mood and affect normal. Results CBC & Chem 7: 02/08/19 07:42 02/08/19 07:42 Labs: Abnormal Lab Results - Last 24 Hours (Table) 02/07/19 02/07/19 02/07/19 Range/Units 14:31 14:31 14:31 WBC 13.6 H (3.8-10.6) k/uL RDW 15.9 H (11.5-15.5) % Neutrophils # 12.4 H (1.3-7.7) k/uL Lymphocytes # 0.3 L (1.0-4.8) k/uL APTT 21.1 L (22.0-30.0) sec D-Dimer 0.88 H (<0.60) mg/L FEU Chloride (98-107) mmol/L BUN 27 H (7-17) mg/dL Creatinine 1.13 H (0.52-1.04) mg/dL Glucose 170 H (74-99) mg/dL POC Glucose (mg/dL) (75-99) mg/dL Plasma Lactic Acid Hari (0.7-2.0) mmol/L Calcium (8.4-10.2) mg/dL Total Bilirubin 1.5 H (0.2-1.3) mg/dL C-Reactive Protein (<10.0) mg/L 02/07/19 02/07/19 02/07/19 Range/Units 16:40 17:43 20:29 WBC (3.8-10.6) k/uL RDW (11.5-15.5) % Neutrophils # (1.3-7.7) k/uL Lymphocytes # (1.0-4.8) k/uL APTT (22.0-30.0) sec D-Dimer (<0.60) mg/L FEU Chloride (98-107) mmol/L BUN (7-17) mg/dL Creatinine (0.52-1.04) mg/dL Glucose (74-99) mg/dL POC Glucose (mg/dL) 189 H 272 H (75-99) mg/dL Plasma Lactic Acid Hari 3.2 H* (0.7-2.0) mmol/L Calcium (8.4-10.2) mg/dL Total Bilirubin (0.2-1.3) mg/dL C-Reactive Protein (<10.0) mg/L 02/07/19 02/08/19 02/08/19 Range/Units 20:35 07:42 07:42 WBC 19.6 H (3.8-10.6) k/uL RDW 15.6 H (11.5-15.5) % Neutrophils # 18.5 H (1.3-7.7) k/uL Lymphocytes # 0.8 L (1.0-4.8) k/uL APTT (22.0-30.0) sec D-Dimer (<0.60) mg/L FEU Chloride 108 H (98-107) mmol/L BUN 21 H (7-17) mg/dL Creatinine (0.52-1.04) mg/dL Glucose 171 H (74-99) mg/dL POC Glucose (mg/dL) (75-99) mg/dL Plasma Lactic Acid Hari 3.7 H* (0.7-2.0) mmol/L Calcium 8.1 L (8.4-10.2) mg/dL Total Bilirubin (0.2-1.3) mg/dL C-Reactive Protein (<10.0) mg/L 02/08/19 02/08/19 02/08/19 Range/Units 07:42 11:46 11:56 WBC (3.8-10.6) k/uL RDW (11.5-15.5) % Neutrophils # (1.3-7.7) k/uL Lymphocytes # (1.0-4.8) k/uL APTT (22.0-30.0) sec D-Dimer (<0.60) mg/L FEU Chloride (98-107) mmol/L BUN (7-17) mg/dL Creatinine (0.52-1.04) mg/dL Glucose (74-99) mg/dL POC Glucose (mg/dL) 214 H (75-99) mg/dL Plasma Lactic Acid Hari 2.2 H* (0.7-2.0) mmol/L Calcium (8.4-10.2) mg/dL Total Bilirubin (0.2-1.3) mg/dL C-Reactive Protein 149.7 H (<10.0) mg/L 02/08/19 Range/Units 12:00 WBC (3.8-10.6) k/uL RDW (11.5-15.5) % Neutrophils # (1.3-7.7) k/uL Lymphocytes # (1.0-4.8) k/uL APTT (22.0-30.0) sec D-Dimer (<0.60) mg/L FEU Chloride (98-107) mmol/L BUN (7-17) mg/dL Creatinine (0.52-1.04) mg/dL Glucose (74-99) mg/dL POC Glucose (mg/dL) (75-99) mg/dL Plasma Lactic Acid Hari 2.9 H* (0.7-2.0) mmol/L Calcium (8.4-10.2) mg/dL Total Bilirubin (0.2-1.3) mg/dL C-Reactive Protein (<10.0) mg/L Assessment and Plan Assessment: 1-patient presented to hospital with increasing shortness of breath patient also have a cough which has been mostly dry in nature no URI symptoms and no GI symptoms with evidence of a focal pneumonia on the CT angiogram and likely community-acquired in this patient who has not been exposed to any antibiotic in the recent past not at risk of resistant gram-positive or gram-negative infection (1) Bronchopneumonia Current Visit: Yes Status: Acute Code(s): J18.0 - BRONCHOPNEUMONIA, UNSPECIFIED ORGANISM SNOMED Code(s): 119653810 Plan: 1-we will try to obtain sputum for Gram stain and culture 2-check urine for Legionella antigen 3-Rocephin 1 g daily and Zithromax to continue along with steroids and bronchodilators per pulmonary We will follow on clinical condition and cultures to further adjust medication if needed Thank you for this consultation will follow this patient with you Time with Patient: Greater than 30
[2019-02-08 16:38] LABS: Appearance,Urine Clear (Clear); Bilirubin,Urine Negative (Negative); Blood,Urine Negative (Negative); Color,Urine Light Yellow; Glucose,Urine (UA) 3+ (Negative); Ketones,Urine Negative (Negative); Leukocyte Esterase,Urine Negative (Negative); Nitrite,Urine Negative (Negative); Protein,Urine Negative (Negative); Specific Gravity,Urine 1.012 (1.001-1.035); Urobilinogen,Urine <2.0 mg/dL (<2.0)
[2019-02-08 16:47] LABS: Cyclic Citrull Pep IgG Unit <0.5 U/mL; Cyclic Citrullinated Pep IgG NEGATIVE (NEGATIVE)
[2019-02-08 16:58] LABS: Glucose,Whole Blood 165 mg/dL (75-99)
[2019-02-08] MEDS ORDERED: AZITHROMYCIN 500 MG TAB PO SCH (17:00)
[2019-02-08] MEDS: SODIUM CHLORIDE 0.45% 1,000 ML IV SCH (17:25)
[2019-02-08 19:57] LABS: Glucose,Whole Blood 262 mg/dL (75-99)
[2019-02-08] MEDS: MONTELUKAST 10 MG TAB PO SCH (20:15)
[2019-02-09] MEDS: ACETAMINOPHEN TAB 500 MG TAB PO PRN (03:38)
[2019-02-09] MEDS: methylPREDNISolone SOD SUCCI 125 MG/2 ML VIAL IV SCH ×2 (06:02→12:53)
[2019-02-09 06:56] LABS: Glucose,Whole Blood 151 mg/dL (75-99)
[2019-02-09] MEDS: INSULIN ASPART (NovoLOG) 100 UNIT/ML VIAL SQ SCH ×2 (08:09→12:53)
[2019-02-09] MEDS: LORATADINE 10 MG TAB PO SCH (08:10)
[2019-02-09] MEDS: PANTOPRAZOLE 40 MG TABLET PO SCH (08:10)
[2019-02-09] MEDS: HEPARIN SODIUM,PORCINE 5,000 UNIT/ML 1 ML VIAL SQ SCH (08:10)
[2019-02-09] MEDS: FORMOTEROL FUMARATE 20 MCG/2 ML NEBU INHALATION SCH (08:50)
[2019-02-09] MEDS: IPRATROPIUM-ALBUTEROL 3 ML NEB INHALATION SCH ×2 (08:50→13:06)
[2019-02-09] MEDS: BUDESONIDE 1 MG/2 ML NEBU INHALATION SCH (08:50)
[2019-02-09 08:53] LABS: Basophils % (A) 0 %; Eosinophils % (A) 0 %; HCT 34.5 % (34.0-46.0); HGB 11.4 gm/dL (11.4-16.0); Lymphocytes # (A) 0.5 k/uL (1.0-4.8); Lymphocytes % (A) 3 %; MCH 27.8 pg (25.0-35.0); MCV 84.2 fL (80.0-100.0); Mean Platelet Volume 6.9; Monocytes # (A) 0.3 k/uL (0-1.0); Monocytes % (A) 2 %; Neutrophils # (A) 15.2 k/uL (1.3-7.7); Neutrophils % (A) 94 %; Platelet Count 349 k/uL (150-450); RBC 4.11 m/uL (3.80-5.40); RDW 14.8 % (11.5-15.5); WBC 16.1 k/uL (3.8-10.6)
[2019-02-09 09:09] LABS: African American GFR (CKD) >90 (>60 ml/min/1.73 sqM); Anion Gap 7 mmol/L; Blood Urea Nitrogen 19 mg/dL (7-17); Calcium 7.8 mg/dL (8.4-10.2); Carbon Dioxide 22 mmol/L (22-30); Chloride 111 mmol/L (98-107); Glucose 150 mg/dL (74-99); Non-African American GFR(CKD) >90 (>60 ml/min/1.73 sqM); Potassium 4.3 mmol/L (3.5-5.1); Sodium 140 mmol/L (137-145)
--- NOTE | 2019-02-09 11:07 | P.PN ---
Subjective Progress Note Date: 02/09/19 Principal diagnosis: Acute exacerbation of mild intermittent chronic bronchial asthma, complicated by nonspecific pneumonitis. This is a pleasant 58-year-old female patient who follows with Dr. Walden is her primary care physician. She has a history of gastroesophageal reflux disease, obesity, dysphagia, mild intermittent chronic bronchial asthma. She is a lifelong nonsmoker. She was recently seen as a new patient by Dr. Clayton. FEV1 value of 83% of predicted. He initiated her on Qvar and Singulair and she was to return to the office later this month. She presented here to the emergency room yesterday with complaints of increasing shortness of breath, cough and congestion. Chest x-ray revealed chronic changes but no acute pulmonary process. D-dimer slightly elevated and a CT angiogram was performed. There was multifocal bronchopneumonia, cryptogenic organizing pneumonia, atypical pulmonary edema possibly alveolar hemorrhage. Atypical infection or hypersensit ivity pneumonitis, drug toxicity, respiratory bronchiolitis interstitial lung disease within the differential. No significant findings for pulmonary embolism. White count 19.6. Hemoglobin 12.3. Creatinine 0.72. She has been initiated on DuoNeb inhalations, Pulmicort and Perforomist inhalations, IV Solu- Medrol. Antibiotics in the form of ceftriaxone and azithromycin. She is seen today in consultation on the regular medical floor. She is awake and alert in no acute distress. She is breathing a bit easier today as compared to yesterday. Maintaining O2 saturations in the 90s on 2 L/m per nasal cannula. She's been afebrile. Hemodynamically stable. The patient is seen today in 02/09/2019 in follow-up on the regular medical floor. She is awake and alert in no acute distress. Breathing better today as compared to yesterday. She's been up ambulating in the hallway. She continues w ith a dry nonproductive cough. She is maintaining O2 saturations in the 90s on 2 L/m per nasal cannula. She's afebrile. Blood and urine cultures reveal no growth to date. White count 16.1. Hemoglobin 11.4. Creatinine 0.68. Suspect not nonspecific pneumonitis. IONA screen is positive. C-reactive protein high at 149. Rheumatoid factor within normal limits. Cyclic citrullinated peptide screen negative. She remains on ceftriaxone and azithromycin along with her pulmonary medications including IV Solu-Medrol, DuoNeb's, Pulmicort and Perforomist inhalations. Objective - Vital Signs Vital signs: Vital Signs Temp 97.5 F L 02/09/19 03:55 Pulse 102 H 02/09/19 09:14 Resp 16 02/09/19 03:55 BP 120/70 02/09/19 03:55 Pulse Ox 94 L 02/09/19 03:55 Intake & Output 02/08/19 02/09/19 02/09/19 18:59 06:59 18:59 Intake Total 1008 1449 Balance 1008 1449 Intake: Intake, IV Titration 1008 1449 Amount Sodium Chloride 0.9% 1, 1008 1449 000 ml @ 126 mls/hr IV . Q7H57M [facility] Rx#:[id number] Other: Voiding Method Toilet Toilet # Voids 3 2 - Exam GENERAL EXAM: Alert, active, pleasant 58-year-old female, comfortable in no apparent distress. HEAD: Normocephalic. EYES: Normal reaction of pupils, equal size. NOSE: Clear with pink turbinates. THROAT: No erythema or exudates. NECK: No masses, no JVD. CHEST: No chest wall deformity. LUNGS: Equal air entry with no crackles, wheeze, rhonchi or dullness. CVS: S1 and S2 normal with no audible murmur, regular rhythm. ABDOMEN: No hepatosplenomegaly, normal bowel sounds, no guarding or rigidity. SPINE: No scoliosis or deformity SKIN: No rashes CENTRAL NERVOUS SYSTEM: No focal deficits, tone is normal in all 4 extremities. EXTREMITIES: There is no peripheral edema. No clubbing, no cyanosis. Peripheral pulses are intact. - Labs CBC & Chem 7: 02/09/19 07:40 02/09/19 07:40 Labs: Abnormal Lab Results - Last 24 Hours (Table) 02/08/19 02/08/19 02/08/19 Range/Units 07:42 11:46 11:56 WBC (3.8-10.6) k/uL Neutrophils # (1.3-7.7) k/uL Lymphocytes # (1.0-4.8) k/uL ESR 24 H (0-20) mm/hr Chloride (98-107) mmol/L BUN (7-17) mg/dL Glucose (74-99) mg/dL POC Glucose (mg/dL) 214 H (75-99) mg/dL Plasma Lactic Acid Hari (0.7-2.0) mmol/L Calcium (8.4-10.2) mg/dL C-Reactive Protein 149.7 H (<10.0) mg/L Urine Glucose (UA) (Negative) IONA Screen (NEGATIVE) 02/08/19 02/08/19 02/08/19 Range/Units 11:56 12:00 13:59 WBC (3.8-10.6) k/uL Neutrophils # (1.3-7.7) k/uL Lymphocytes # (1.0-4.8) k/uL ESR (0-20) mm/hr Chloride (98-107) mmol/L BUN (7-17) mg/dL Glucose (74-99) mg/dL POC Glucose (mg/dL) (75-99) mg/dL Plasma Lactic Acid Hari 2.9 H* (0.7-2.0) mmol/L Calcium (8.4-10.2) mg/dL C-Reactive Protein (<10.0) mg/L Urine Glucose (UA) 3+ H (Negative) IONA Screen POSITIVE H (NEGATIVE) 02/08/19 02/08/19 02/08/19 Range/Units 16:12 16:56 19:56 WBC (3.8-10.6) k/uL Neutrophils # (1.3-7.7) k/uL Lymphocytes # (1.0-4.8) k/uL ESR (0-20) mm/hr Chloride (98-107) mmol/L BUN (7-17) mg/dL Glucose (74-99) mg/dL POC Glucose (mg/dL) 165 H 262 H (75-99) mg/dL Plasma Lactic Acid Hari 2.7 H* (0.7-2.0) mmol/L Calcium (8.4-10.2) mg/dL C-Reactive Protein (<10.0) mg/L Urine Glucose (UA) (Negative) IONA Screen (NEGATIVE) 02/09/19 02/09/19 02/09/19 Range/Units 06:55 07:40 07:40 WBC 16.1 H (3.8-10.6) k/uL Neutrophils # 15.2 H (1.3-7.7) k/uL Lymphocytes # 0.5 L (1.0-4.8) k/uL ESR (0-20) mm/hr Chloride 111 H (98-107) mmol/L BUN 19 H (7-17) mg/dL Glucose 150 H (74-99) mg/dL POC Glucose (mg/dL) 151 H (75-99) mg/dL Plasma Lactic Acid Hrai (0.7-2.0) mmol/L Calcium 7.8 L (8.4-10.2) mg/dL C-Reactive Protein (<10.0) mg/L Urine Glucose (UA) (Negative) IONA Screen (NEGATIVE) Microbiology - Last 24 Hours (Table) 02/08/19 13:59 Urine Culture - Preliminary Urine,Voided 02/07/19 14:31 Blood Culture - Preliminary Blood No Growth after 24 hours Assessment and Plan Assessment: Impression: #1 Acute exacerbation of mild intermittent chronic bronchial asthma, complicated by nonspecific pneumonitis. IONA screen is positive. C-reactive protein is high at 149. #2 Leukocytosis secondary to above. #3 Gastroesophageal reflux disease. #4 History of dysphagia with previous EGD. #5 Lifelong nonsmoker. Plan: The patient was seen and evaluated by Dr. Hagan. She is cleared for discharge from the pulmonary standpoint. Complete a course of antibiotics. Complete a course of prednisone burst and taper starting at 40 mg daily for 4 days. Suspec t some nonspecific pneumonitis. IONA screen is positive. C-reactive protein high at 149.7. Follow-up CAT scan in 2 weeks' time. She'll keep her scheduled appointment with Dr. Clayton a week from tomorrow. She is encouraged to call sooner with any recurrence of symptoms or other questions or concerns. I, the cosigning physician, performed a history & physical examination of the patient. Lungs sounds with end expiratory wheeze, few scattered crackles in the bases. Maintaining good O2 saturations in the 90s on 2 L/m per nasal cannula. I discussed the assessment and plan of care with my nurse practitioner, Perlita Perkins. I attest to the above note as dictated by her.
[2019-02-09 11:10] LABS: ANA Pattern See Footnote
[2019-02-09 11:35] LABS: Glucose,Whole Blood 179 mg/dL (75-99)
[2019-02-09 12:00] VITALS: BP 106/68; RESP 18; TEMP 97.8
[2019-02-09 13:19] VITALS: PULSE 100
[2019-02-09] MEDS: SODIUM CHLORIDE 0.9% 1,000 ML IV SCH (13:33)
--- NOTE | 2019-02-09 19:29 | PN ---
PROGRESS NOTE DATE OF SERVICE: 02/09/2019 REASON FOR FOLLOWUP: Pneumonia. INTERVAL HISTORY: The patient was seen on rounds this morning. The patient has been afebrile. She is breathing more comfortably. Denies having any chest pain. Occasional cough. No nausea, no vomiting, no abdominal pain and no diarrhea. PHYSICAL EXAMINATION: Blood pressure 106/68 with a pulse of 100, temperature 97.8. She is 97% on room air. General description is a middle-aged female up in the bed in no distress. RESPIRATORY SYSTEM: Unlabored breathing with decreased intensity of breath sounds. No wheeze. HEART: S1, S2. Regular rate and rhythm. ABDOMEN: Soft. No tenderness. LABS: Hemoglobin 11.4, white count 16.1. BUN of 19, creatinine 0.68. Influenza testing was negative. Urine cultures currently pending. DIAGNOSTIC IMPRESSION AND PLAN: Patient admitted to hospital with difficulty in breathing with concern for pneumonia on the basis of the CT angiogram. Patient clinically responding to the Rocephin and Zithromax; to continue while waiting for the cultures to finalize. Continue with supportive care. MMODL / IJN: [id number] / JOSSUE
--- NOTE | 2019-02-09 21:50 | DS ---
DISCHARGE SUMMARY DATE OF SERVICE: 02/09/2019. FINAL DIAGNOSES: 1. Acute bronchial asthma, acute exacerbation, with purulent tracheobronchitis, early bronchopneumonia, right more than left, with failure of outpatient treatment. 2. Elevated lactic acid with possible sepsis, present on admission. 3. Increased creatinine with possible mild acute renal failure with mild acute tubular necrosis, prerenal renal failure. 4. Increased white count. 5. History of bronchial asthma. 6. Elevated D-dimer. 7. Gastroesophageal reflux disease. 8. Dysphagia history. 9. History of breast biopsy. 10.History of esophagogastroduodenoscopy. DISCHARGE DISPOSITION: The patient will be discharged in stable condition with guarded prognosis. Dr. Hagan cleared the patient for discharge. HISTORY OF PRESENT ILLNESS: This 58-year-old woman with a past medical history of multiple medical problems was admitted with bronchial asthma, acute exacerbation, with possible pneumonia. Patient was treated with bronchodilators, antibiotics and steroids. Patient improved significantly. Dr. Hagan saw the patient and cleared the patient for discharge. Dr. Foreman of Infectious Disease also saw the patient. No chest pain. No palpitations. No fever. The patient is followed by Dr. Walden in the outpatient setting. On exam, vitals are stable. CARDIOVASCULAR SYSTEM: S1, S2 muffled. ABDOMEN: Soft. RESPIRATORY: Diffuse scattered rhonchi. No crackles. NERVOUS SYSTEM: No focal deficit. DISCHARGE ADVICE AND MEDICATIONS: 1. Diet is cardiac. 2. Activity limited until followup. 3. Claritin 10 mg daily. 4. Omeprazole 20 mg b.i.d. 5. Qvar 80 two puffs b.i.d. 6. Singulair 10 mg at bedtime. 7. Ceftin 500 mg p.o. b.i.d. for 3 days. 8. DuoNeb q.i.d. 9. Tylenol 500 mg q.6 p.r.n. 10.Zithromax 500 mg p.o. daily for 5 days. 11.Follow up with ID and Pulmonary as recommended. Once again, the patient will be discharged in stable condition with guarded prognosis. MMODL / IJN: [id number] /
== END 2019-02-09 14:25 | disposition home or self-care (01) | DRG 871 ==
LOC: EC 13:47 → 3NMEDONC 15:28
PROVIDERS: ADMIT Hospitalist; ATTEND Hospitalist
DX: A41.9 Sepsis, unspecified organism (principal); N17.0 Acute kidney failure with tubular necrosis; J18.0 Bronchopneumonia, unspecified organism; J21.9 Acute bronchiolitis, unspecified; J45.901 Unspecified asthma with (acute) exacerbation; K21.9 Gastro-esophageal reflux disease without esophagitis; R13.10 Dysphagia, unspecified; Z77.22 Contact with and (suspected) exposure to environmental tobacco smoke (acute) (chronic); Z82.3 Family history of stroke; Z79.899 Other long term (current) drug therapy; Z98.890 Other specified postprocedural states; Z82.49 Family history of ischemic heart disease and other diseases of the circulatory system
CPT/HCPCS: 36415; 71046; 71275; 80048; 80053; 81003; 82550; 82553; 83519; 83605; 83880; 84484; 85025; 85379; 85610; 85652; 85730; 86038; 86039; 86140; 86200; 86431; 87040; 87086; 87449; 87502; 93005; 94640; 96365; 96375; 99291

== ENCOUNTER → 2019-02-14 | Outpatient (CLI) | payer BC ==
[2019-02-14 15:37] LABS: Basophils # (A) 0.1 k/uL (0-0.2); Basophils % (A) 1 %; Eosinophils # (A) 0.2 k/uL (0-0.7); Eosinophils % (A) 3 %; HCT 39.6 % (34.0-46.0); HGB 12.7 gm/dL (11.4-16.0); Lymphocytes # (A) 1.3 k/uL (1.0-4.8); Lymphocytes % (A) 20 %; MCH 26.9 pg (25.0-35.0); MCHC 32.2 g/dL (31.0-37.0); MCV 83.5 fL (80.0-100.0); Mean Platelet Volume 6.3; Monocytes # (A) 0.5 k/uL (0-1.0); Monocytes % (A) 8 %; Neutrophils % (A) 64 %; Platelet Count 386 k/uL (150-450); RBC 4.74 m/uL (3.80-5.40); RDW 14.8 % (11.5-15.5); WBC 6.2 k/uL (3.8-10.6)
[2019-02-14 23:21] LABS: African American GFR (CKD) 70.9 (60.0-200.0); Anion Gap 8.9 mmol/L (4.00-12.00); Calcium 8.5 mg/dL (8.7-10.3); Carbon Dioxide 26.1 mmol/L (21.6-31.8); Potassium 5.1 mmol/L (3.5-5.5)
== END | disposition home or self-care (01) ==
LOC: LABWHC1 14:23
PROVIDERS: ATTEND Hospitalist
DX: J44.9 Chronic obstructive pulmonary disease, unspecified (principal)
CPT/HCPCS: 36415; 80048; 85025

== ENCOUNTER 2019-11-29 10:33 | Emergency (ER) | payer BC ==
[2019-11-29 10:50] VITALS: BP 157/80; PULSE 99; RESP 18; TEMP 98.4
[2019-11-29] MEDS ORDERED: predniSONE 50 MG TAB PO STA (11:39)
--- NOTE | 2019-11-29 11:45 | XR ---
EXAMINATION TYPE: XR chest 2V DATE OF EXAM: 11/29/2019 COMPARISON: 02/08/2019 TECHNIQUE: PA and lateral views submitted. HISTORY: Cough FINDINGS: The lungs are clear and there is no pneumothorax, pleural effusion, or focal pneumonia. No overt fa ilure. Arthropathy of the shoulders. Ectasia of the aorta. Degenerative change of the spine. IMPRESSION: 1. No acute process.
--- NOTE | 2019-11-29 11:55 | ED ---
URI HPI - General Chief Complaint: Upper Respiratory Infection Stated Complaint: cough Time Seen by Provider: 11/29/19 10:51 Source: patient Mode of arrival: ambulatory Limitations: no limitations - History of Present Illness Initial Comments: 59-year-old female history of asthma presenting to the emergency room today for chief complaint of cough. Patient that she has had a cough for the past few weeks. She states she has some phlegm production. Patient states last month she was tested for coronavirus which was negative. Patient states she has not had fevers. She states that she has no diarrhea vomiting. Patient denies any chest pain or pressure. Patient states she did not use her rescue inhaler once yesterday. She states this is not unusual for her. She denies any new or concerning shortness of breath. Patient denies pain with deep inspiration chest pressure, leg swelling hemoptysis or history of DVT/pulmonary embolism. Patient states she was told from her primary care to come in for a chest x-ray and cold with test. Other than that patient states she does not want further evaluation she states she feels well. Patient vital signs within acceptable limits she does not appear respiratory distress or toxic - Related Data Home Medications Medication Instructions Recorded Confirmed Loratadine [Claritin] 10 mg PO DAILY 09/14/18 02/07/19 Omeprazole 20 mg PO BID 09/14/18 02/07/19 Beclomethasone Dip 80 Mcg/Puff 2 puff INHALATION RT-BID 02/07/19 02/07/19 [Qvar 80 mcg] Montelukast [Singulair] 10 mg PO HS 02/07/19 02/07/19 Previous Rx's Medication Instructions Recorded Acetaminophen Tab [Tylenol] 500 mg PO Q6HR PRN tab 02/09/19 Azithromycin [Zithromax] 500 mg PO Q24H #5 tab 02/09/19 Cefuroxime Axetil [Ceftin] 500 mg PO BID 3 Days #6 tab 02/09/19 Ipratropium-Albuterol Nebulize 3 ml INHALATION RT-QID #120 02/09/19 [Duoneb 0.5 mg-3 mg/3 ml Soln] ampul.neb Allergies Allergy/AdvReac Type Severity Reaction Status Date / Time No Known Allergies Allergy Verified 11/29/19 10:47 Review of Systems ROS Statement: Those systems with pertinent positive or pertinent negative responses have been documented in the HPI. ROS Other: All systems not noted in ROS Statement are negative. Past Medical History Past Medical History: Asthma, GERD/Reflux Additional Past Medical History / Comment(s): dysphagia, asthma History of Any Multi-Drug Resistant Organisms: None Reported Past Surgical History: Breast Surgery Additional Past Surgical History / Comment(s): breast biopsy,EGD for dilatation Past Anesthesia/Blood Transfusion Reactions: No Reported Reaction Additional Past Anesthesia/Blood Transfusion Reaction / Comment(s): no hx blood transfusion Past Psychological History: No Psychological Hx Reported Smoking Status: Never smoker Past Alcohol Use History: Occasional Past Drug Use History: None Reported - Past Family History Mother Family Medical History: No Reported History General Exam - General Exam Comments Initial Comments: General: The patient is awake and alert, in no distress, and does not appear acutely ill. Eye: +3 mm pupils are equal, round and reactive to light, extra-ocular movements are intact. No nystagmus. There is normal conjunctiva bilaterally. No signs of icterus. No photophobia Neck: The neck is supple, there is no tenderness or JVD. No nuchal rigidity negative Brudzinski and Kernig Cardiovascular: There is a regular rate and rhythm. No murmur, rub or gallop is appreciated. Respiratory: Lungs are clear to auscultation, respirations are non-labored, breath sounds are equal. Very mild expiratory wheeze. No stridor, rales, or rhonchi. No retractions or abdominal breathing. Musculoskeletal: Normal ROM, no tenderness. Strength 5/5. Sensation intact. Radial pulses equal bilaterally 2+. Neurological: A&O x 3. CN II-XII intact rossly, There are no obvious motor or sensory deficits. Coordination appears grossly intact. Speech appears normal, no muffling. Skin: Skin is warm and dry and no rashes or lesions are noted. No extremity edema Psychiatric: Cooperative Limitations: no limitations Course Vital Signs 11/29/19 10:47 Temperature 98.4 F Pulse Rate 99 Respiratory 18 Rate Blood Pressure 157/80 O2 Sat by Pulse 97 Oximetry Medical Decision Making - Medical Decision Making 59-year-old female presenting for cough. Sent from primary care provider for chest x-ray and comatose. Patient refused any further testing. Patient states she has no shortness of breath currently. Refused breathing treatment and should mild expiratory wheeze. Patient has no leg swelling. She does not appear in respiratory distress. Chest x-ray is clear focal sensory or acute process. Patient was given an oral dose of prednisone. I discussed the case attending provider Dr. Muniz was agreeable to the plan discharge of this patient at this time return parameters were discussed at length as this could be early on in an unidentified disease process patient verbalized understanding is discharged appearing well Disposition Clinical Impression: Cough Disposition: HOME SELF-CARE Condition: Good Instructions (If sedation given, give patient instructions): Upper Respiratory Infection (ED) Additional Instructions: Please use medication as discussed. Please follow-up with family doctor in the next 2 days.Please return to emergency room if the symptoms increase or worsen or for any other concerns. Is patient prescribed a controlled substance at d/c from ED?: No Referrals: Rudolph Walden III, MD [Primary Care Provider] - 1-2 days Time of Disposition: 11:55
== END 2019-11-29 12:03 | disposition home or self-care (01) ==
LOC: EC 10:33
DX: R05 Cough (principal); J45.909 Unspecified asthma, uncomplicated; K21.9 Gastro-esophageal reflux disease without esophagitis; Z79.51 Long term (current) use of inhaled steroids; Z79.899 Other long term (current) drug therapy; Z20.828 Contact with and (suspected) exposure to other viral communicable diseases
CPT/HCPCS: 71046; 99283; U0003; J7512

== ENCOUNTER 2020-01-01 13:33 | Inpatient (IN) | payer BC ==
[2020-01-01] MEDS ORDERED: methylPREDNISolone SOD SUCCI 125 MG/2 ML VIAL IV STA (13:41)
[2020-01-01] MEDS ORDERED: IPRATROPIUM-ALBUTEROL 3 ML NEB INHALATION STA (13:41)
[2020-01-01] MEDS ORDERED: SODIUM CHLORIDE 0.9% 1,000 ML IV STA ×2 (13:41)
--- NOTE | 2020-01-01 13:42 | ED ---
SOB HPI - General Chief Complaint: Shortness of Breath Stated Complaint: Diff Breathing Time Seen by Provider: 01/01/20 13:39 Source: patient, RN notes reviewed, old records reviewed Mode of arrival: ambulatory Limitations: no limitations - History of Present Illness Initial Comments: This is a 59-year-old female DF for evaluation patient Dese for evaluation regards to severe shortness of breath not improving despite breathing treatments. I'll chest pain especially depressed feels like her heart rate. Feels weak mildly dehydrated. Decreased appetite. No fevers or travel history no sick contacts. Patient is no code exposure no recent hospital admission. MD Complaint: shortness of breath, cough, pain with inspiration -: days(s) Severity: moderate Quality: throbbing Consistency: intermittent Improves With: nothing Worsens With: nothing Known History Of: COPD Context: recent URI Associated Symptoms: cough, sputum production Treatments Prior to Arrival: none - Related Data Home Medications Medication Instructions Recorded Confirmed Loratadine [Claritin] 10 mg PO DAILY 09/14/18 01/01/20 Omeprazole 20 mg PO BID 09/14/18 01/01/20 Montelukast [Singulair] 10 mg PO HS 02/07/19 01/01/20 Budesonide/Formoterol Fumarate 2 puff INHALATION RT-BID 01/01/20 01/01/20 [Symbicort 160-4.5 Mcg Inhaler] Previous Rx's Medication Instructions Recorded Acetaminophen Tab [Tylenol] 500 mg PO Q6HR PRN tab 02/09/19 Ipratropium-Albuterol Nebulize 3 ml INHALATION RT-QID #120 02/09/19 [Duoneb 0.5 mg-3 mg/3 ml Soln] ampul.neb Allergies Allergy/AdvReac Type Severity Reaction Status Date / Time No Known Allergies Allergy Verified 01/01/20 14:47 Review of Systems ROS Statement: Those systems with pertinent positive or pertinent negative responses have been documented in the HPI. ROS Other: All systems not noted in ROS Statement are negative. Past Medical History Past Medical History: Asthma, GERD/Reflux Additional Past Medical History / Comment(s): dysphagia, asthma History of Any Multi-Drug Resistant Organisms: None Reported Past Surgical History: Breast Surgery Additional Past Surgical History / Comment(s): breast biopsy,EGD for dilatation Past Anesthesia/Blood Transfusion Reactions: No Reported Reaction Additional Past Anesthesia/Blood Transfusion Reaction / Comment(s): no hx blood transfusion Past Psychological History: No Psychological Hx Reported Past Alcohol Use History: Occasional Past Drug Use History: None Reported - Past Family History Mother Family Medical History: No Reported History General Exam Limitations: no limitations General appearance: alert, in no apparent distress Head exam: Present: atraumatic, normocephalic, normal inspection Eye exam: Present: normal appearance, PERRL, EOMI. Absent: scleral icterus, conjunctival injection, periorbital swelling ENT exam: Present: normal exam, mucous membranes moist Neck exam: Present: normal inspection. Absent: tenderness, meningismus, lymphadenopathy Respiratory exam: Present: normal lung sounds bilaterally, respiratory distress, wheezes, accessory muscle use, decreased breath sounds, prolonged expiratory. Absent: rales, rhonchi, stridor Cardiovascular Exam: Present: normal rhythm, tachycardia, normal heart sounds. Absent: systolic murmur, diastolic murmur, rubs, gallop, clicks GI/Abdominal exam: Present: soft, normal bowel sounds. Absent: distended, tenderness, guarding, rebound, rigid Extremities exam: Present: normal inspection, full ROM, normal capillary refill. Absent: tenderness, pedal edema, joint swelling, calf tenderness Back exam: Present: normal inspection Neurological exam: Present: alert, oriented X3, CN II-XII intact Psychiatric exam: Present: normal affect, normal mood Skin exam: Present: warm, dry, intact, normal color. Absent: rash Course Vital Signs 01/01/20 01/01/20 01/01/20 13:33 14:04 14:16 Temperature 98.7 F Pulse Rate 125 H 120 H 122 H Respiratory 26 H Rate Blood Pressure 164/78 O2 Sat by Pulse 95 Oximetry - Reevaluation(s) Reevaluation #1: 01/01/20 15:27 Medical record is reviewed Reevaluation #2: 01/01/20 15:27 Symptoms mildly improved with still significant wheezing elevated heart rate - Consultations Consultation #1: spoke w JAVI lee for admission Medical Decision Making - Medical Decision Making 59 female DF for evaluation patient will be admitted for COPD exacerbation not doing well and breathing treatments - Lab Data Result diagrams: 01/01/20 13:48 01/01/20 13:48 Lab Results 08/03/20 08/03/20 08/03/20 Range/Units 13:48 13:48 13:48 WBC 9.4 (3.8-10.6) k/uL RBC 4.91 (3.80-5.40) m/uL Hgb 12.6 (11.4-16.0) gm/dL Hct 40.2 (34.0-46.0) % MCV 81.8 (80.0-100.0) fL MCH 25.7 (25.0-35.0) pg MCHC 31.4 (31.0-37.0) g/dL RDW 15.2 (11.5-15.5) % Plt Count 393 (150-450) k/uL Neutrophils % 80 % Lymphocytes % 10 % Monocytes % 6 % Eosinophils % 2 % Basophils % 0 % Neutrophils # 7.6 (1.3-7.7) k/uL Lymphocytes # 0.9 L (1.0-4.8) k/uL Monocytes # 0.6 (0-1.0) k/uL Eosinophils # 0.2 (0-0.7) k/uL Basophils # 0.0 (0-0.2) k/uL PT 9.7 (9.0-12.0) sec INR 0.9 (<1.2) APTT 23.2 (22.0-30.0) sec Sodium 137 (137-145) mmol/L Potassium 4.5 (3.5-5.1) mmol/L Chloride 106 (98-107) mmol/L Carbon Dioxide 23 (22-30) mmol/L Anion Gap 8 mmol/L BUN 19 H (7-17) mg/dL Creatinine 0.69 (0.52-1.04) mg/dL Est GFR (CKD-EPI)AfAm >90 (>60 ml/min/1.73 sqM) Est GFR (CKD-EPI)NonAf >90 (>60 ml/min/1.73 sqM) Glucose 113 H (74-99) mg/dL Plasma Lactic Acid Hari (0.7-2.0) mmol/L Calcium 8.9 (8.4-10.2) mg/dL Magnesium 1.8 (1.6-2.3) mg/dL Total Bilirubin 0.8 (0.2-1.3) mg/dL AST 29 (14-36) U/L ALT 29 (4-34) U/L Alkaline Phosphatase 123 (38-126) U/L CK-MB (CK-2) (0.0-2.4) ng/mL Troponin I (0.000-0.034) ng/mL NT-Pro-B Natriuret Pep pg/mL Total Protein 7.1 (6.3-8.2) g/dL Albumin 3.9 (3.5-5.0) g/dL 01/01/20 01/01/20 01/01/20 Range/Units 13:48 13:48 13:48 WBC (3.8-10.6) k/uL RBC (3.80-5.40) m/uL Hgb (11.4-16.0) gm/dL Hct (34.0-46.0) % MCV (80.0-100.0) fL MCH (25.0-35.0) pg MCHC (31.0-37.0) g/dL RDW (11.5-15.5) % Plt Count (150-450) k/uL Neutrophils % % Lymphocytes % % Monocytes % % Eosinophils % % Basophils % % Neutrophils # (1.3-7.7) k/uL Lymphocytes # (1.0-4.8) k/uL Monocytes # (0-1.0) k/uL Eosinophils # (0-0.7) k/uL Basophils # (0-0.2) k/uL PT (9.0-12.0) sec INR (<1.2) APTT (22.0-30.0) sec Sodium (137-145) mmol/L Potassium (3.5-5.1) mmol/L Chloride (98-107) mmol/L Carbon Dioxide (22-30) mmol/L Anion Gap mmol/L BUN (7-17) mg/dL Creatinine (0.52-1.04) mg/dL Est GFR (CKD-EPI)AfAm (>60 ml/min/1.73 sqM) Est GFR (CKD-EPI)NonAf (>60 ml/min/1.73 sqM) Glucose (74-99) mg/dL Plasma Lactic Acid Hari 1.3 (0.7-2.0) mmol/L Calcium (8.4-10.2) mg/dL Magnesium (1.6-2.3) mg/dL Total Bilirubin (0.2-1.3) mg/dL AST (14-36) U/L ALT (4-34) U/L Alkaline Phosphatase (38-126) U/L CK-MB (CK-2) 1.3 (0.0-2.4) ng/mL Troponin I <0.012 (0.000-0.034) ng/mL NT-Pro-B Natriuret Pep 72 pg/mL Total Protein (6.3-8.2) g/dL Albumin (3.5-5.0) g/dL - EKG Data -: EKG Interpreted by Me (EKG is sinus tachycardia 119 RI 160 QRS 98 QTc 472) - Radiology Data Radiology results: report reviewed (chest x-ray negative for acute disease), image reviewed Disposition Clinical Impression: Asthmatic bronchitis, Bronchopneumonia, Acute exacerbation of chronic obstructive pulmonary disease Disposition: ADMITTED IP TO THIS HOSP Condition: Good Is patient prescribed a controlled substance at d/c from ED?: No Referrals: Rudolph Walden III, MD [Primary Care Provider] - 1-2 days
[2020-01-01 14:15] LABS: Basophils % (A) 0 %; Eosinophils # (A) 0.2 k/uL (0-0.7); Eosinophils % (A) 2 %; HCT 40.2 % (34.0-46.0); HGB 12.6 gm/dL (11.4-16.0); Lymphocytes # (A) 0.9 k/uL (1.0-4.8); Lymphocytes % (A) 10 %; MCH 25.7 pg (25.0-35.0); MCHC 31.4 g/dL (31.0-37.0); MCV 81.8 fL (80.0-100.0); Mean Platelet Volume 6.9; Monocytes # (A) 0.6 k/uL (0-1.0); Monocytes % (A) 6 %; Neutrophils # (A) 7.6 k/uL (1.3-7.7); Neutrophils % (A) 80 %; Platelet Count 393 k/uL (150-450); RBC 4.91 m/uL (3.80-5.40); RDW 15.2 % (11.5-15.5); WBC 9.4 k/uL (3.8-10.6)
[2020-01-01 14:26] LABS: ALT 29 U/L (4-34); AST 29 U/L (14-36); African American GFR (CKD) >90 (>60 ml/min/1.73 sqM); Albumin 3.9 g/dL (3.5-5.0); Alkaline Phosphatase 123 U/L (38-126); Anion Gap 8 mmol/L; Blood Urea Nitrogen 19 mg/dL (7-17); Calcium 8.9 mg/dL (8.4-10.2); Carbon Dioxide 23 mmol/L (22-30); Chloride 106 mmol/L (98-107); Glucose 113 mg/dL (74-99); INR 0.9 (<1.2); Magnesium 1.8 mg/dL (1.6-2.3); Non-African American GFR(CKD) >90 (>60 ml/min/1.73 sqM); Partial Thromboplastin Time 23.2 sec (22.0-30.0); Potassium 4.5 mmol/L (3.5-5.1); Prothrombin Time 9.7 sec (9.0-12.0); Sodium 137 mmol/L (137-145); Total Bilirubin 0.8 mg/dL (0.2-1.3); Total Protein 7.1 g/dL (6.3-8.2)
[2020-01-01 14:47] LABS: Creatine Kinase MB 1.3 ng/mL (0.0-2.4); Troponin I <0.012 ng/mL (0.000-0.034)
--- NOTE | 2020-01-01 14:54 | XR ---
EXAMINATION TYPE: XR chest 2V DATE OF EXAM: 01/01/2020 COMPARISON: CTA chest February 07, 2019. 2 view chest x-ray November 29, 2019. HISTORY: Chest tightness and difficulty in breathing. TECHNIQUE: Frontal and lateral views of the chest are obtained. FINDINGS: There is no new suspicious focal air space opacity, pleural effusion, or pneumothorax seen bilaterally. Persistent azygos lobe/fissure which is normal variant. The cardiac silhouette size re keyla within normal limits. The osseous structures are intact. Overlying EKG leads currently. IMPRESSION: No new acute cardiopulmonary process.
[2020-01-01] MEDS ORDERED: IPRATROPIUM-ALBUTEROL 3 ML NEB INHALATION PRN (15:25)
[2020-01-01] MEDS: ALBUTEROL NEBULIZED 2.5 MG/3 ML INHALATION SCH ×2 (15:37→19:37)
[2020-01-01] MEDS ORDERED: ACETAMINOPHEN TAB 500 MG TAB PO PRN (16:03)
[2020-01-01] MEDS ORDERED: TEMAZEPAM 15 MG CAP PO PRN (16:04)
[2020-01-01] MEDS ORDERED: ALPRAZolam 0.25 MG TAB PO PRN (16:04)
[2020-01-01] MEDS ORDERED: HYDROmorphone 0.5 MG/0.5 ML SYRINGE IVP PRN (16:04)
[2020-01-01] MEDS ORDERED: HYDROcodone/APAP 5-325MG 1 EACH TAB PO PRN (16:04)
--- NOTE | 2020-01-01 18:56 | HP ---
HISTORY AND PHYSICAL DATE OF SERVICE: 01/01/2020 CHIEF COMPLAINTS: Shortness of breath and cough. HISTORY OF PRESENT ILLNESS: This 59-year-old woman with a past medical history of multiple medical problems, including asthma, GERD, dysphagia, history of breast surgery, being followed by Dr. Walden in the outpatient setting, was complaining of shortness of breath which was increasing for the last couple of days. The patient came to [facility] and was admitted for further evaluation and treatment. Chest x-ray showed some increased bronchovascular markings. The patient also had tachycardia. There is no history of any fever, rigor or chills. No history of headache, loss of consciousness, seizures. The white count was normal and glucose was 113. PAST MEDICAL HISTORY: History of asthma, GERD, dysphagia, asthma, history of breast surgery. HOME MEDICATIONS: 1. Omeprazole 20 mg b.i.d. 2. Singulair 10 mg at bedtime. 3. Claritin 10 mg daily. 4. DuoNeb q.i.d. 5. Symbicort 160/4.5 two puffs b.i.d. 6. Tylenol 500 mg q.6 p.r.n. ALLERGIES: NONE. FAMILY HISTORY: No history of heart disease or strokes in the family. SOCIAL HISTORY: No history of smoking. No history of alcohol intake. REVIEW OF SYSTEMS: ENT: No diminished hearing. No diminished vision. CARDIOVASCULAR SYSTEM: As mentioned earlier. RESPIRATORY SYSTEM: As mentioned earlier. GI: No nausea, vomiting. : No dysuria or retention. NERVOUS SYSTEM: No numbness, weakness. ALLERGY/IMMUNOLOGY: No asthma, hayfever. MUSCULOSKELETAL: As mentioned earlier. HEMATOLOGY/ONCOLOGY: No history of anemia. ENDOCRINE: No history of diabetes, hypothyroidism. CONSTITUTIONAL: As mentioned earlier. DERMATOLOGY: Negative. RHEUMATOLOGY: Negative. PSYCHIATRY: As mentioned earlier. PHYSICAL EXAMINATION: Patient alert and oriented x3. Pulse is 113, blood pressure 133/77, respiration 18, temperature 98.7, pulse ox 94% on room air. HEENT: Conjunctivae normal. Oral mucosa moist. NECK: No jugular venous distention. No carotid bruit. No lymph node enlargement. CARDIOVASCULAR SYSTEM: S1, S2 muffled. RESPIRATORY SYSTEM: Breath sounds diminished at the bases. Scattered rhonchi and crackles. Expiratory wheezing also present. ABDOMEN: Soft, non-tender. No mass palpable. LEGS: No edema. No swelling. NERVOUS SYSTEM: Higher functions as mentioned earlier. Moves all 4 limbs. No focal motor or sensory deficit. LYMPHATICS: No lymph node palpable in neck, axillae or groin. SKIN: No ulcer, rash, bleeding. JOINTS: No active deforming arthropathy. LABS: CBC within normal limits. Glucose 113. Otherwise, chest x-ray reviewed personally. ASSESSMENT: 1. Chronic obstructive pulmonary disease, acute exacerbation, with acute purulent tracheobronchitis. 2. Elevated random blood glucose. 3. History of asthma exacerbation. 4. History of gastroesophageal reflux disease. 5. History of dysphagia. 6. History of breast surgery. 7. History of esophagogastroduodenoscopy for dilatation. 8. Obesity with body mass index of 44.8. RECOMMENDATIONS AND DISCUSSION: In this 59-year-old woman who presented with multiple complex medical issues, we will monitor the patient closely, continue the current management, continue with symptomatic treatment. Intensive bronchodilators, empiric antibiotics. Resume the home medications. Consult pulmonary group with Dr. Page and Dr. Clayton. Guarded prognosis because of multiple complex medical issues. Further recommendations to follow. A copy of this dictation is being forwarded to Dr. Walden, who is the primary physician. MMODL / IJN: [id number] /
[2020-01-01] MEDS: SODIUM CHLORIDE 0.9% 1,000 ML IV SCH (19:12)
[2020-01-01] MEDS: FORMOTEROL FUMARATE 20 MCG/2 ML NEBU INHALATION SCH (19:37)
[2020-01-01] MEDS: BUDESONIDE 1 MG/2 ML NEBU INHALATION SCH (19:37)
[2020-01-01] MEDS: IPRATROPIUM-ALBUTEROL 3 ML NEB INHALATION SCH (19:42)
[2020-01-01] MEDS: methylPREDNISolone SOD SUCCI 125 MG/2 ML VIAL IV SCH (20:53)
[2020-01-01] MEDS: MONTELUKAST 10 MG TAB PO SCH (20:54)
[2020-01-01] MEDS ORDERED: NON FORMULARY DRUG (Omeprazole [Omeprazole] 20 MG) PO SCH (21:00)
[2020-01-01] MEDS: HEPARIN SODIUM,PORCINE 5,000 UNIT/ML 1 ML VIAL SQ SCH (21:46)
[2020-01-02] MEDS: SODIUM CHLORIDE 0.9% 1,000 ML IV SCH ×3 (01:06→22:29)
[2020-01-02] MEDS: methylPREDNISolone SOD SUCCI 125 MG/2 ML VIAL IV SCH ×2 (02:51→08:04)
[2020-01-02 07:33] LABS: Basophils % (A) 0 %; Eosinophils % (A) 0 %; HCT 35.9 % (34.0-46.0); HGB 11.1 gm/dL (11.4-16.0); Lymphocytes # (A) 0.6 k/uL (1.0-4.8); Lymphocytes % (A) 8 %; MCH 25.6 pg (25.0-35.0); MCV 82.5 fL (80.0-100.0); Monocytes # (A) 0.1 k/uL (0-1.0); Monocytes % (A) 1 %; Neutrophils # (A) 6.9 k/uL (1.3-7.7); Neutrophils % (A) 91 %; Platelet Count 361 k/uL (150-450); RBC 4.35 m/uL (3.80-5.40); RDW 15.4 % (11.5-15.5); WBC 7.6 k/uL (3.8-10.6)
[2020-01-02 07:46] LABS: African American GFR (CKD) >90 (>60 ml/min/1.73 sqM); Anion Gap 8 mmol/L; Blood Urea Nitrogen 14 mg/dL (7-17); Calcium 7.9 mg/dL (8.4-10.2); Carbon Dioxide 23 mmol/L (22-30); Chloride 109 mmol/L (98-107); Glucose 162 mg/dL (74-99); Non-African American GFR(CKD) >90 (>60 ml/min/1.73 sqM); Potassium 4.1 mmol/L (3.5-5.1); Sodium 140 mmol/L (137-145)
[2020-01-02] MEDS: LORATADINE 10 MG TAB PO SCH (08:04)
[2020-01-02] MEDS: HEPARIN SODIUM,PORCINE 5,000 UNIT/ML 1 ML VIAL SQ SCH ×2 (08:04→22:28)
[2020-01-02] MEDS: PANTOPRAZOLE 40 MG TABLET PO SCH (08:04)
[2020-01-02] MEDS: FORMOTEROL FUMARATE 20 MCG/2 ML NEBU INHALATION SCH ×2 (09:05→19:21)
[2020-01-02] MEDS: IPRATROPIUM-ALBUTEROL 3 ML NEB INHALATION SCH ×4 (09:05→19:21)
[2020-01-02] MEDS: BUDESONIDE 1 MG/2 ML NEBU INHALATION SCH ×2 (09:05→19:21)
[2020-01-02] MEDS ORDERED: SENNOSIDES-DOCUSATE SODIUM 1 EACH TAB PO STA (09:10)
--- NOTE | 2020-01-02 12:21 | P.CNPUL ---
History of Present Illness Consult date: 01/02/20 Reason for consult: dyspnea, asthma History of present illness: 59-year-old female patient known history of asthma maintained on a combination o f Symbicort and Singulair not outpatient basis, comes in for increased shortness of breath, chest tightness, wheezing and dyspnea. No reported fever or chills no sick contacts. No exposure to coronavirus covert 19. Her last hospital physician was in January 2019 and at that time the patient had a right lung pneumonia as well as confirmed confirmed by CAT scan of the chest. Repeat chest x-ray was done during this current hospitalization showed no evidence of any pneumonia. Blood work showed no leukocytosis. Troponins are negative. ProBNP level is not elevated at 72. The coronavirus covid 19 nasal swab was done and the results are still pending for now. No nausea. No vomiting. No diarrhea. The patient or the feeling better and she is on a combination of DuoNeb nebulized treatments around the clock, IV Solu-Medrol, and IV Rocephin. She is ambulating and she is on room air oxygen with a pulse ox of 95%. No frequent hospitalizations and no frequent asthma exacerbation. One potential trigger could've been had exposure to animal dander specifically cats and she is known to have environmental ALLERGIES. No acid reflux. No eczema. Review of Systems Constitutional: Reports weight gain, Denies chills, Denies fever Eyes: denies as per HPI, denies blurred vision, denies bulging eye, denies decreased vision, denies diplopia, denies discharge, denies dry eye, denies irritation, denies itching, denies pain, denies photophobia, denies loss of peripheral vision, denies loss of vision, denies tunnel vision/blind spots Ears: deny: decreased hearing, ear discharge, earache, tinnitus Ears, nose, mouth and throat: Denies headache, Denies sore throat Breasts: absent: as per HPI, change in shape, gynecomastia, masses, nipple discharge, pain, skin changes, swelling Cardiovascular: Reports dyspnea on exertion Respiratory: Reports cough, Reports dyspnea, Reports wheezing Gastrointestinal: Reports as per HPI Genitourinary: Reports as per HPI Menstruation: Reports as per HPI Musculoskeletal: Reports as per HPI Musculoskeletal: absent: ankle pain, ankle stiffness, ankle swelling Integumentary: Reports as per HPI Neurological: Reports as per HPI Psychiatric: Reports as per HPI Endocrine: Reports as per HPI Hematologic/Lymphatic: Reports as per HPI Allergic/Immunologic: Reports as per HPI Past Medical History Past Medical History: Asthma, GERD/Reflux Additional Past Medical History / Comment(s): dysphagia History of Any Multi-Drug Resistant Organisms: None Reported Past Surgical History: Breast Surgery Additional Past Surgical History / Comment(s): breast biopsy,EGD for dilatation Past Anesthesia/Blood Transfusion Reactions: No Reported Reaction Additional Past Anesthesia/Blood Transfusion Reaction / Comment(s): no hx blood transfusion Past Psychological History: No Psychological Hx Reported Smoking Status: Never smoker Past Alcohol Use History: Occasional Past Drug Use History: None Reported - Past Family History Mother Family Medical History: No Reported History Medications and Allergies Home Medications Medication Instructions Recorded Confirmed Type Loratadine [Claritin] 10 mg PO DAILY 09/14/18 01/01/20 History Omeprazole 20 mg PO BID 09/14/18 01/01/20 History Montelukast [Singulair] 10 mg PO HS 02/07/19 01/01/20 History Acetaminophen Tab [Tylenol] 500 mg PO Q6HR PRN tab 02/09/19 01/01/20 Rx Ipratropium-Albuterol Nebulize 3 ml INHALATION RT-QID #120 02/09/19 01/01/20 Rx [Duoneb 0.5 mg-3 mg/3 ml Soln] ampul.neb Budesonide/Formoterol Fumarate 2 puff INHALATION RT-BID 01/01/20 01/01/20 History [Symbicort 160-4.5 Mcg Inhaler] Allergies Allergy/AdvReac Type Severity Reaction Status Date / Time No Known Allergies Allergy Verified 01/01/20 14:47 Physical Exam Vitals: Vital Signs Temp Pulse Pulse Resp BP BP Pulse Ox 01/02/20 08:02 97.8 F 115 H 18 125/68 01/02/20 03:00 98.3 F 112 H 19 114/56 95 01/01/20 20:11 119 H 01/01/20 20:05 98 F 115 H 19 132/64 98 01/01/20 20:03 120 H 01/01/20 20:02 120 H 01/01/20 19:45 117 H 01/01/20 19:02 99.3 F 115 H 20 140/59 96 01/01/20 17:09 110 H 20 96 01/01/20 15:57 113 H 18 133/77 95 01/01/20 14:16 122 H 01/01/20 14:04 120 H 01/01/20 13:33 98.7 F 125 H 26 H 164/78 95 Intake and Output 01/01/20 01/02/20 01/02/20 22:59 06:59 14:59 Other: # Voids 1 Weight 111.13 kg GENERAL EXAM: Alert, pleasant 59-year-old female patient, comfortable in no apparent distress. Currently on room air oxygen with a pulse ox of 95% HEAD: Normocephalic. EYES: Normal reaction of pupils, equal size. NOSE: Clear with pink turbinates. THROAT: No erythema or exudates. NECK: No masses, no JVD. CHEST: No chest wall deformity. LUNGS: Equal air entry with end expiratory wheeze CVS: S1 and S2 normal with no audible murmur, regular rhythm. ABDOMEN: No hepatosplenomegaly, normal bowel sounds, no guarding or rigidity. SPINE: No scoliosis or deformity SKIN: No rashes CENTRAL NERVOUS SYSTEM: No focal deficits, tone is normal in all 4 extremities. EXTREMITIES: There is no peripheral edema. No clubbing, no cyanosis. Peripheral pulses are intact. Results - Laboratory Findings CBC and BMP: 01/02/20 07:08 01/02/20 07:08 PT/INR, D-dimer PT 9.7 sec (9.0-12.0) 01/01/20 13:48 INR 0.9 (<1.2) 01/01/20 13:48 Abnormal lab findings: Abnormal Labs 01/01/20 01/01/20 01/02/20 13:48 13:48 07:08 Hgb 11.1 L Lymphocytes # 0.9 L 0.6 L Chloride BUN 19 H Glucose 113 H Calcium 01/02/20 07:08 Hgb Lymphocytes # Chloride 109 H BUN Glucose 162 H Calcium 7.9 L - Diagnostic Findings Chest x-ray: image reviewed Assessment and Plan Plan: 1 acute exacerbation of chronic asthma. The exact there is not clear. No evidence of any pneumonia. Chest x-ray is clear of any pulmonary infiltrates. Consider possibility of ALLERGIES exacerbating her asthma. Clinically improved and accommodation bronchodilators and steroids. 2 moderate persistent bronchial asthma with an accommodation of Symbicort and syndrome outpatient basis 3 obesity with a BMI of 44.8 with possible obstructive sleep apnea 4 lifetime nonsmoker 5 history of acid reflux Plan Clinically much improved Consider discharging the patient home today on a prednisone burst taper and IV Solu Medrol may be discontinued Continue Symbicort and Singulair an outpatient basis regarding asthma maintenance Encourage weight loss ALLERGY workup on outpatient basis including total IgE level Follow-up with us in the office.
--- NOTE | 2020-01-02 15:04 | PN ---
PROGRESS NOTE DATE OF SERVICE: 01/02/2020 This is a 59-year-old woman who was admitted with COPD, asthma exacerbation, is being closely monitored at this time. The patient is also seen by Dr. Page. The patient had moderate persistent asthma as an outpatient. The patient is on IV steroids and antibiotics also. No chest pain. No palpitations. No fever. PHYSICAL EXAMINATION: Alert and oriented x3. Pulse is 112, blood pressure 124/60, respiration 18, temperature is 97.8, pulse ox 94% on room air. HEENT: Conjunctivae normal. NECK: No jugular venous distension. CARDIOVASCULAR SYSTEM: S1, S1, muffled. RESPIRATORY SYSTEM: Breath sounds diminished at the bases, bilateral scattered rhonchi, no crackles. ABDOMEN: Soft, nontender. LEGS: No edema, no swelling. NERVOUS SYSTEM: No focal deficits. LABS: Hemoglobin is 11.1, sodium 140, potassium 4.1 and glucose 162. ASSESSMENT: 1. Bronchial asthma acute exacerbation with acute purulent tracheobronchitis. 2. History of moderate persistent asthma in the history. 3. Increased random blood sugar. 4. Tachycardia. 5. History of GERD. 6. History of dysphagia. 7. History of breast surgery. 8. History of EGD and dilatation. 9. History of obesity with body mass index of 44.8. RECOMMENDATION: In this 59-year-old woman who presented with multiple complex medical issues, will monitor the patient closely, continue with the current medications, continue with the steroids, continue with the antibiotics, continue with the bronchodilators. Closely monitor with Pulmonary. Guarded prognosis. Further recommendations to follow. MMODL / IJN: [id number] /
[2020-01-02] MEDS: methylPREDNISolone SOD SUCCI 40 MG/ML 1 ML VIAL IV SCH ×2 (15:35→23:36)
[2020-01-02 17:02] LABS: Glucose,Whole Blood 155 mg/dL (75-99)
[2020-01-02] MEDS: INSULIN ASPART (NovoLOG) 100 UNIT/ML VIAL SQ SCH ×2 (17:41→22:28)
[2020-01-02 21:44] LABS: Glucose,Whole Blood 169 mg/dL (75-99)
[2020-01-02] MEDS: MONTELUKAST 10 MG TAB PO SCH (22:28)
[2020-01-03 06:51] LABS: Glucose,Whole Blood 143 mg/dL (75-99)
[2020-01-03 07:19] LABS: Basophils % (A) 0 %; Eosinophils % (A) 0 %; HCT 35.1 % (34.0-46.0); HGB 10.8 gm/dL (11.4-16.0); Hypochromasia Slight; Lymphocytes # (A) 0.7 k/uL (1.0-4.8); Lymphocytes % (A) 5 %; MCH 25.7 pg (25.0-35.0); MCHC 30.7 g/dL (31.0-37.0); Mean Platelet Volume 7.3; Monocytes # (A) 0.3 k/uL (0-1.0); Monocytes % (A) 2 %; Neutrophils % (A) 92 %; Platelet Count 335 k/uL (150-450); RBC 4.18 m/uL (3.80-5.40); RDW 15.7 % (11.5-15.5); WBC 13.1 k/uL (3.8-10.6)
[2020-01-03 07:37] LABS: African American GFR (CKD) >90 (>60 ml/min/1.73 sqM); Anion Gap 5 mmol/L; Blood Urea Nitrogen 18 mg/dL (7-17); Calcium 7.9 mg/dL (8.4-10.2); Carbon Dioxide 23 mmol/L (22-30); Chloride 112 mmol/L (98-107); Glucose 142 mg/dL (74-99); Non-African American GFR(CKD) >90 (>60 ml/min/1.73 sqM); Potassium 4.5 mmol/L (3.5-5.1); Sodium 140 mmol/L (137-145)
[2020-01-03 07:48] VITALS: BP 155/93; RESP 18; TEMP 97.9
[2020-01-03] MEDS: PANTOPRAZOLE 40 MG TABLET PO SCH (07:49)
[2020-01-03] MEDS: HEPARIN SODIUM,PORCINE 5,000 UNIT/ML 1 ML VIAL SQ SCH (07:49)
[2020-01-03] MEDS: methylPREDNISolone SOD SUCCI 40 MG/ML 1 ML VIAL IV SCH (07:49)
[2020-01-03] MEDS: LORATADINE 10 MG TAB PO SCH (07:49)
[2020-01-03] MEDS: INSULIN ASPART (NovoLOG) 100 UNIT/ML VIAL SQ SCH ×2 (07:49→11:58)
[2020-01-03] MEDS: SODIUM CHLORIDE 0.9% 1,000 ML IV SCH (07:57)
[2020-01-03] MEDS: IPRATROPIUM-ALBUTEROL 3 ML NEB INHALATION SCH ×2 (07:58→12:05)
[2020-01-03] MEDS: BUDESONIDE 1 MG/2 ML NEBU INHALATION SCH (07:59)
[2020-01-03] MEDS: FORMOTEROL FUMARATE 20 MCG/2 ML NEBU INHALATION SCH (07:59)
[2020-01-03 12:11] VITALS: PULSE 90
--- NOTE | 2020-01-03 12:36 | P.PN ---
Subjective Progress Note Date: 01/03/20 Principal diagnosis: Acute exacerbation of chronic bronchial asthma, unspecified 59-year-old female patient known history of asthma maintained on a combination of Symbicort and Singulair not outpatient basis, comes in for increased shortness of breath, chest tightness, wheezing and dyspnea. No reported fever or chills no sick contacts. No exposure to coronavirus covert 19. Her last hospital physician was in January 2019 and at that time the patient had a right lung pneumonia as well as confirmed confirmed by CAT scan of the chest. Repeat chest x-ray was done during this current hospitalization showed no evidence of any pneumonia. Blood work showed no leukocytosis. Troponins are negative. ProBNP level is not elevated at 72. The coronavirus covid 19 nasal swab was done and the results are still pending for now. No nausea. No vomiting. No diarrhea. The patient or the feeling better and she is on a combination of DuoNeb nebulized treatments around the clock, IV Solu-Medrol, and IV Rocephin. She is ambulating and she is on room air oxygen with a pulse ox of 95%. No frequent hospitalizations and no frequent asthma exacerbation. One potential trigger could've been had exposure to animal dander specifically cats and she is known to have environmental ALLERGIES. No acid reflux. No eczema. On 01/03/2020 patient seen in follow-up in the observation unit, she is breathing much easier, feeling better, lung sounds are positive for minimal expiratory wheezes, no significant cough or congestion, patient is on room air pulse ox is 97%, she's been afebrile, his had no acute events overnight, no chest discomfort. Patient has been treated with IV steroids, nebulized bronchodilators and antibiotics, improved, she is anticipated to be discharged home today. Objective - Vital Signs Vital signs: Vital Signs Temp 97.9 F 01/03/20 07:47 Pulse 90 01/03/20 12:11 Resp 18 01/03/20 08:49 BP 155/93 01/03/20 07:47 Pulse Ox 97 01/03/20 07:59 Intake & Output 01/02/20 01/03/20 01/03/20 18:59 06:59 18:59 Intake Total 200 200 Balance 200 200 Intake: Oral 200 Other 200 Other: # Voids 1 - Exam GENERAL EXAM: Alert, very pleasant, 59-year-old white female, on room air, comfortable in no apparent distress. HEAD: Normocephalic/atraumatic. EYES: Normal reaction of pupils, equal size. Conjunctiva pink, sclera white. NOSE: Clear with pink turbinates. THROAT: No erythema or exudates. NECK: No masses, no JVD, no thyroid enlargement, no adenopathy. CHEST: No chest wall deformity. Symmetrical expansion. LUNGS: Equal air entry with no crackles, minimal expiratory wheezes CVS: Regular rate and rhythm, normal S1 and S2, no gallops, no murmurs, no rubs ABDOMEN: Soft, nontender. No hepatosplenomegaly, normal bowel sounds, no guarding or rigidity. EXTREMITIES: No clubbing, no edema, no cyanosis, 2+ pulses and upper and lower extremities. MUSCULOSKELETAL: Muscle strength and tone normal. SPINE: No scoliosis or deformity SKIN: No rashes CENTRAL NERVOUS SYSTEM: Alert and oriented -3. No focal deficits, tone is normal in all 4 extremities. PSYCHIATRIC: Alert and oriented -3. Appropriate affect. Intact judgment and insight. - Labs CBC & Chem 7: 01/03/20 06:50 01/03/20 06:50 Labs: Abnormal Lab Results - Last 24 Hours (Table) 01/02/20 01/02/20 01/03/20 Range/Units 17:01 21:42 06:49 WBC (3.8-10.6) k/uL Hgb (11.4-16.0) gm/dL MCHC (31.0-37.0) g/dL RDW (11.5-15.5) % Neutrophils # (1.3-7.7) k/uL Lymphocytes # (1.0-4.8) k/uL Chloride (98-107) mmol/L BUN (7-17) mg/dL Glucose (74-99) mg/dL POC Glucose (mg/dL) 155 H 169 H 143 H (75-99) mg/dL Calcium (8.4-10.2) mg/dL 01/03/20 01/03/20 Range/Units 06:50 06:50 WBC 13.1 H (3.8-10.6) k/uL Hgb 10.8 L (11.4-16.0) gm/dL MCHC 30.7 L (31.0-37.0) g/dL RDW 15.7 H (11.5-15.5) % Neutrophils # 12.0 H (1.3-7.7) k/uL Lymphocytes # 0.7 L (1.0-4.8) k/uL Chloride 112 H (98-107) mmol/L BUN 18 H (7-17) mg/dL Glucose 142 H (74-99) mg/dL POC Glucose (mg/dL) (75-99) mg/dL Calcium 7.9 L (8.4-10.2) mg/dL Assessment and Plan Plan: Assessment: 1 acute exacerbation of chronic asthma. The exact there is not clear. No evidence of any pneumonia. Chest x-ray is clear of any pulmonary infiltrates. Consider possibility of ALLERGIES exacerbating her asthma. Clinically improved and accommodation bronchodilators and steroids. 2 moderate persistent bronchial asthma with an accommodation of Symbicort and syndrome outpatient basis 3 obesity with a BMI of 44.8 with possible obstructive sleep apnea 4 lifetime nonsmoker 5 history of acid reflux Plan: Patient continues to improve, breathing easier, she is on room air, vital signs are stable, no acute events overnight, stable for discharge home today on the prednisone burst taper, she can continue on her Symbicort and Singulair on outpatient basis, we advised the patient to stay off work for the rest of the week to recover. She can follow-up on outpatient basis with Dr. Clayton next week I performed a history & physical examination of the patient and discussed their management with my nurse practitioner, Blanca Schwarz. I reviewed the nurse practitioner's note and agree with the documented findings and plan of care. Lung sounds are positive for minimal end expiratory wheezes. The findings and the impression was discussed with the patient. I attest to the documentation by the nurse practitioner. Time with Patient: Less than 30
--- NOTE | 2020-01-03 16:26 | P.DS ---
Providers Date of admission: 01/03/20 10:22 Expected date of discharge: 01/03/20 Attending physician: Yoselin Ross Consults: 01/01/20 15:25 Consult Physician Routine Consulting Provider: Markus Clayton Reason/Comments: kknown Do you want consulting provider notified?: Yes Primary care physician: Rudolph Walden [place] [facility] Course: Final Diagnosis Bronchial asthma acute exacerbation with acute purulent tracheobronchitis History of moderate persistent asthma and history Increased random blood sugar Tachycardia History of GERD History of dysphagia History of breast surgery History of dilatation an EGD History of obesity with a body mass index of 44.8 Discharge disposition Patient is being discharged in a stable condition with guarded prognosis to home. Patient will follow-up with Dr. Walden in the outpatient setting upon discharge. Patient also instructed to follow-up with Dr. Matilde draper in the outpatient setting. Patient is to continue with a short course of oral antibiotics in the form of Ceftin 500 mg twice daily for the next 3 days to complete a course along with a prednisone taper. Total time taken is greater than 35 minutes. History of present illness This is a 59-year-old female who was recently admitted with COPD, asthma exacerbation, and worsening shortness of breath and was being closely monitored. Patient was seen and evaluated by pulmonary and maintained on IV steroids along with antibiotics and breathing inhalational treatments. Patient's respiratory status improved and would like to go home today. Patient instructed to follow- up with pulmonary in the outpatient setting for further testing. Patient will continue on oral antibiotics in the form of Ceftin 500 mg twice daily for the next 3 days along with a prednisone taper and breathing inhalational treatments. States she does have inhalers at home as well. Currently no reports of chest pain, worsening shortness of breath, or palpitations. Patient is afebrile. No reports of nausea or vomiting and patient is tolerating diet. Patient will be discharged home today. On exam vital signs are stable. Temp is 97.9F, pulse is 90, respirations are 18, blood pressure is 155/93, oxygen saturation is 96% on room air. Cardio S1, S2 are muffled. Respiratory system shows diminished breath sounds at the bases with some scattered rhonchi noted. Mild expiratory wheezing noted on exam. Abdomen is soft and nontender. Nervous system shows no focal deficits. Please refer to medication reconciliation sheet for a list of medications. Patient Condition at Discharge: Good Plan - Discharge Summary Discharge Rx Participant: Yes New Discharge Prescriptions: New Cefuroxime Axetil [Ceftin] 500 mg PO BID 3 Days #6 tab Ipratropium-Albuterol Nebulize [Duoneb 0.5 mg-3 mg/3 ml Soln] 3 ml INHALATION RT-Q4H PRN ml PRN Reason: Shortness Of Breath Or Wheezing predniSONE 10 mg PO DIRECTED #30 tab Continue Loratadine [Claritin] 10 mg PO DAILY Omeprazole 20 mg PO BID Montelukast [Singulair] 10 mg PO HS Ipratropium-Albuterol Nebulize [Duoneb 0.5 mg-3 mg/3 ml Soln] 3 ml INHALATION RT-QID #120 ampul.neb Acetaminophen Tab [Tylenol] 500 mg PO Q6HR PRN tab PRN Reason: Fever and/ or MILD Pain Budesonide/Formoterol Fumarate [Symbicort 160-4.5 Mcg Inhaler] 2 puff INHALATION RT-BID Discharge Medication List Loratadine [Claritin] 10 mg PO DAILY 09/14/18 [History] Omeprazole 20 mg PO BID 09/14/18 [History] Montelukast [Singulair] 10 mg PO HS 02/07/19 [History] Acetaminophen Tab [Tylenol] 500 mg PO Q6HR PRN tab 02/09/19 [Rx] Ipratropium-Albuterol Nebulize [Duoneb 0.5 mg-3 mg/3 ml Soln] 3 ml INHALATION RT-QID #120 ampul.neb 02/09/19 [Rx] Budesonide/Formoterol Fumarate [Symbicort 160-4.5 Mcg Inhaler] 2 puff INHALATION RT-BID 01/01/20 [History] Cefuroxime Axetil [Ceftin] 500 mg PO BID 3 Days #6 tab 01/03/20 [Rx] Ipratropium-Albuterol Nebulize [Duoneb 0.5 mg-3 mg/3 ml Soln] 3 ml INHALATION RT-Q4H PRN ml 01/03/20 [Rx] predniSONE 10 mg PO DIRECTED #30 tab 01/03/20 [Rx] Follow up Appointment(s)/Referral(s): Rudolph Walden III, MD [Primary Care Provider] - 1-2 days Markus Clayton DO [Doctor of Osteopathic Medicine] - 1 Week Patient Instructions/Handouts: Asthma (DC) Activity/Diet/Wound Care/Special Instructions: Activity Limited until follow-up Continue current diet Follow-up with primary care provider upon discharge Follow-up with pulmonary in the outpatient setting Continue with antibiotics until finished Continue with prednisone taper Discharge/Stand Alone Forms: Work/Release Restrictions Form, Work/School Release / Restrict Discharge Disposition: HOME SELF-CARE
== END 2020-01-03 13:20 | disposition home or self-care (01) | DRG 191 ==
LOC: EC 13:33 → 1SOBS 15:25 → OBSVTOIN 01-03 10:22
PROVIDERS: ADMIT Hospitalist; ATTEND Hospitalist
DX: J44.1 Chronic obstructive pulmonary disease with (acute) exacerbation (principal); J45.41 Moderate persistent asthma with (acute) exacerbation; Z68.41 Body mass index [BMI] 40.0-44.9, adult; J44.0 Chronic obstructive pulmonary disease with (acute) lower respiratory infection; Z20.828 Contact with and (suspected) exposure to other viral communicable diseases; J20.9 Acute bronchitis, unspecified; E66.9 Obesity, unspecified; E86.0 Dehydration; K21.9 Gastro-esophageal reflux disease without esophagitis; R13.10 Dysphagia, unspecified; R00.0 Tachycardia, unspecified; G47.33 Obstructive sleep apnea (adult) (pediatric); Z79.899 Other long term (current) drug therapy; Z79.51 Long term (current) use of inhaled steroids; Z87.01 Personal history of pneumonia (recurrent); Z98.890 Other specified postprocedural states
CPT/HCPCS: 36415; 71046; 80048; 80053; 82553; 83605; 83735; 83880; 84484; 85025; 85610; 85730; 93005; 94640; 96361; 96374; 96375; 99285

== ENCOUNTER 2020-02-05 09:20 | Emergency (ER) | payer BC ==
[2020-02-05 09:25] VITALS: RESP 18
[2020-02-05] MEDS ORDERED: IPRATROPIUM-ALBUTEROL 3 ML NEB INHALATION STA (09:36)
--- NOTE | 2020-02-05 09:56 | XR ---
EXAMINATION TYPE: XR chest 2V DATE OF EXAM: 02/05/2020 COMPARISON: 01/01/2020 HISTORY: 59-year-old female with cough and wheezing TECHNIQUE: PA and lateral views FINDINGS: The cardiomediastinal silhouette, aorta, and pulmonary vasculature are within normal limits. Mild dif fuse interstitial prominence an peribronchial cuffing, increased from prior. No consolidation or pleu ral effusion. IMPRESSION: Peribronchial cuffing and interstitial prominence slightly increased from prior, consider bronchitis or asthma.
--- NOTE | 2020-02-05 10:04 | ED ---
URI HPI - General Chief Complaint: Upper Respiratory Infection Stated Complaint: cough/congestion Time Seen by Provider: 02/05/20 09:27 Source: patient Mode of arrival: ambulatory Limitations: no limitations - History of Present Illness Initial Comments: Patient is a 59-year-old female presenting to emergency Department with complaints of increasing cough and mild shortness of breath for the past week. Patient states she doesn't history of asthma. She states that her granddaughter visited her last week and she had a mild cold which she believes transferred to her. Patient notes some mild chest congestion, sinus drainage, phlegm production. She has been taking albuterol nebulizer treatments at home as well as using her inhaler but states her symptoms seem to have remained the same. She denies any fever, chills, nausea, vomiting, abdominal pain. She has no further complaints at this time. Upon arrival to the ER, patient was slightly tachycardia at 110, hypertensive at 176/107, rest of vitals normal. - Related Data Home Medications Medication Instructions Recorded Confirmed Loratadine [Claritin] 10 mg PO DAILY 09/14/18 01/01/20 Omeprazole 20 mg PO BID 09/14/18 01/01/20 Montelukast [Singulair] 10 mg PO HS 02/07/19 01/01/20 Budesonide/Formoterol Fumarate 2 puff INHALATION RT-BID 01/01/20 01/01/20 [Symbicort 160-4.5 Mcg Inhaler] Previous Rx's Medication Instructions Recorded Acetaminophen Tab [Tylenol] 500 mg PO Q6HR PRN tab 02/09/19 Ipratropium-Albuterol Nebulize 3 ml INHALATION RT-QID #120 02/09/19 [Duoneb 0.5 mg-3 mg/3 ml Soln] ampul.neb Cefuroxime Axetil [Ceftin] 500 mg PO BID 3 Days #6 tab 01/03/20 Ipratropium-Albuterol Nebulize 3 ml INHALATION RT-Q4H PRN ml 01/03/20 [Duoneb 0.5 mg-3 mg/3 ml Soln] predniSONE 10 mg PO DIRECTED #30 tab 01/03/20 methylPREDNISolone [Medrol Dose 4 mg PO DIRECTED #1 pack 02/05/20 Pack] Allergies Allergy/AdvReac Type Severity Reaction Status Date / Time No Known Allergies Allergy Verified 02/05/20 09:25 Review of Systems ROS Statement: Those systems with pertinent positive or pertinent negative responses have been documented in the HPI. ROS Other: All systems not noted in ROS Statement are negative. Past Medical History Past Medical History: Asthma, GERD/Reflux Additional Past Medical History / Comment(s): dysphagia History of Any Multi-Drug Resistant Organisms: None Reported Past Surgical History: Breast Surgery Additional Past Surgical History / Comment(s): breast biopsy,EGD for dilatation Past Anesthesia/Blood Transfusion Reactions: No Reported Reaction Additional Past Anesthesia/Blood Transfusion Reaction / Comment(s): no hx blood transfusion Past Psychological History: No Psychological Hx Reported Smoking Status: Never smoker Past Alcohol Use History: Occasional Past Drug Use History: None Reported - Past Family History Mother Family Medical History: No Reported History General Exam - General Exam Comments Initial Comments: GENERAL: Patient is well-developed and well-nourished. Patient is nontoxic and in no acute distress. HEAD: Atraumatic, normocephalic. EYES: Pupils equal round and reactive to light, extraocular movements intact, sclera anicteric, conjunctiva are normal. Eyelids were unremarkable. ENT: TMs normal, nares patent, oropharynx clear without exudates. Moist mucous membranes. NECK: Normal range of motion, supple without lymphadenopathy or JVD. LUNGS: Unlabored respirations. Mild scattered wheezes, improvement with breathing treatment. No rales or rhonchi. HEART: Regular rate and rhythm without murmurs, rubs or gallops. ABDOMEN: Soft, nontender, normoactive bowel sounds. No guarding, no rebound. No masses appreciated. : Deferred MUSCULOSKELETAL: Normal extremities with adequate strength and normal range of motion, no pitting or edema. No clubbing or cyanosis. NEUROLOGICAL: Patient is alert and oriented x 3. Motor and sensory are also intact. Cranial nerves II through XII grossly intact. Symmetrical smile. Normal speech, normal gait. PSYCH: Normal mood, normal affect. SKIN: Warm, Dry, normal turgor, no rashes or lesions noted. Limitations: no limitations Course Vital Signs 02/05/20 02/05/20 02/05/20 09:23 09:46 09:55 Temperature 98.2 F Pulse Rate 110 H 88 90 Respiratory 18 Rate Blood Pressure 176/107 O2 Sat by Pulse 98 Oximetry 02/05/20 10:51 Temperature 98.3 F Pulse Rate 100 Respiratory 18 Rate Blood Pressure 135/77 O2 Sat by Pulse 95 Oximetry Medical Decision Making - Medical Decision Making Patient is 59-year-old female here for cough, chest congestion does been increasing over the past week. I decided to stable, afebrile. She does have some very mild wheezes scattered throughout on exam. Chest x-ray reveals calvin bronchial cuffing, consider bronchitis or asthma. She does have history of asthma, she does have albuterol nebulizer at home as well as an inhaler. I will give her a dose of solu-medrol here in the ER and started her on a steroid Dosepak to start tomorrow. Patient will continue with her nebulizer as needed at home. She'll follow-up with her PCP. Patient is in agreement with this plan of care. Return parameters were discussed with the patient she verbalized understanding. Case discussed with Dr. Muniz. Disposition Clinical Impression: Bronchitis Disposition: HOME SELF-CARE Condition: Stable Instructions (If sedation given, give patient instructions): Acute Bronchitis (ED) Additional Instructions: Please return to the Emergency Department if symptoms worsen or any other concerns. Take steroids as prescribed. Continue with albuterol inhaler at home as needed for shortness of breath. Follow-up with PCP. Prescriptions: methylPREDNISolone [Medrol Dose Pack] 4 mg PO DIRECTED #1 pack Is patient prescribed a controlled substance at d/c from ED?: No Referrals: Rudolph Walden III, MD [Primary Care Provider] - 1-2 days
[2020-02-05] MEDS ORDERED: methylPREDNISolone SOD SUCCI 125 MG/2 ML VIAL IM ONE (10:39)
[2020-02-05 10:53] VITALS: BP 135/77; PULSE 100; TEMP 98.3
== END 2020-02-05 10:51 | disposition home or self-care (01) ==
LOC: EC 09:20
DX: J40 Bronchitis, not specified as acute or chronic (principal); K21.9 Gastro-esophageal reflux disease without esophagitis; Z79.51 Long term (current) use of inhaled steroids; Z79.899 Other long term (current) drug therapy
CPT/HCPCS: 94640; 71046; 99283; 96372; J2930

== ENCOUNTER → 2020-03-04 | Outpatient (CLI) | payer BC ==
--- NOTE | 2020-03-05 13:22 | MM ---
Reason for exam: screening (asymptomatic). Last mammogram was performed 3 years and 3 months ago. History: Patient is postmenopausal. Family history of breast cancer in aunt at age 65 and breast cancer in relative. Benign right mammotome panel of the right breast, April 08, 2012. Benign excisional biopsy of the left breast, April 01, 1998. Physical Findings: A clinical breast exam by your physician is recommended on an annual basis and results should be correlated with mammographic findings. MG Screening Mammo w CAD Bilateral CC and MLO view(s) were taken. Prior study comparison: December 16, 2016, bilateral MG screening mammo w CAD. August 26, 2015, bilateral MG screening mammo w CAD. There are scattered fibroglandular densities. There are benign appearing round calcifications bilaterally. Previous mammotome biopsy in the right breast. Asymmetric breast tissue in the right breast is stable. There is no discrete abnormality. ASSESSMENT: Benign, BI-RAD 2 RECOMMENDATION: Routine screening mammogram of both breasts in 1 year.
== END | disposition home or self-care (01) ==
LOC: RADMAMWWP 14:25
PROVIDERS: ATTEND Family Medicine
DX: Z12.31 Encounter for screening mammogram for malignant neoplasm of breast (principal)
CPT/HCPCS: 77067

== ENCOUNTER → 2020-05-06 | Outpatient (CLI) | payer BC | END | disposition home or self-care (01) | LOC: LABWHC1 10:01 | PROVIDERS: ATTEND Family Medicine | DX: R05 Cough (principal) | CPT/HCPCS: U0003; C9803 ==

== ENCOUNTER → 2020-07-29 | Outpatient (CLI) | payer BC | END | disposition home or self-care (01) | LOC: LABWHC1 16:26 | PROVIDERS: ATTEND Family Medicine | DX: Z20.828 Contact with and (suspected) exposure to other viral communicable diseases (principal); R50.9 Fever, unspecified | CPT/HCPCS: 87502; U0003; C9803; U0005 ==

== ENCOUNTER 2020-08-06 09:33 | Inpatient (IN) | payer BC ==
[2020-08-06] MEDS ORDERED: SODIUM CHLORIDE 0.9% 1,000 ML IV STA (09:42)
[2020-08-06] MEDS ORDERED: ACETAMINOPHEN TAB 500 MG TAB PO STA (09:42)
--- NOTE | 2020-08-06 10:22 | ED ---
General Adult HPI - General Chief complaint: Fever Stated complaint: fever/cough Time Seen by Provider: 08/06/20 09:41 Source: patient Mode of arrival: wheelchair Limitations: physical limitation - History of Present Illness Initial comments: Dictation was produced using allyve dictation software. please excuse any grammatical, word or spelling errors. This patient was cared for during a federal and state declared state of emergency secondary to Covid 19 Chief Complaint: 59-year-old male past medical history of asthma GERD, hyperte nsion presents to the emergency department for cough and fevers. History of Present Illness: This 59-year-old female states that over the last 7 days she's been having cough and fever. Patient has not been taking antipyretics. She states her cough is sometimes productive but mostly nonproductive. She denies any burning on urination or changes in urinary habits. She denies any abdominal pain. No vomiting. She denies any pain complaints. Denies any sore throat The ROS documented in this emergency department record has been reviewed and confirmed by me. Those systems with pertinent positive or negative responses have been documented in the HPI. All other systems are other negative and/or noncontributory. PHYSICAL EXAM: General Impression: Alert and oriented x3, not in acute distress HEENT: Normocephalic atraumatic, extra-ocular movements intact, pupils equal and reactive to light bilaterally, mucous membranes moist, no oropharyngeal erythema Cardiovascular: Tachycardic Chest: Able to complete full sentences, no retractions, no tachypnea Abdomen: abdomen soft, non-tender, non-distended, no organomegaly Musculoskeletal: Pulses present and equal in all extremities, no peripheral edema Motor: no focal deficits noted Neurological: CN II-XII grossly intact, no focal motor or sensory deficits noted Skin: Intact with no visualized rashes Psych: Normal affect and mood ED course: 59-year-old female presents with fever, cough and constitutional symptoms. Vital signs upon arrival shows him for 13.0, heart rate of 142, 94% on room air. Laboratory evaluation obtained. No leukocytosis. Coag panel is unremarkable. Metabolic panel is within acceptable limits. There is slight elevation of lactic acid level at a value of 2.1. Chronic virus and influenza tests are negative. Chest x-ray shows focal infiltrate at the right lung base. Clinical presentation consistent with community acquired pneumonia. Patient started on ceftriaxone and azithromycin. Patient reevaluated bedside it 11:30 AM in stable medical condition. Patient does not meet criteria for severe sepsis. She is not hypotensive or has a lactate greater than 4. The cultures pending. - Related Data Home Medications Medication Instructions Recorded Confirmed Loratadine [Claritin] 10 mg PO HS 09/14/18 08/06/20 Omeprazole 20 mg PO BID 09/14/18 08/06/20 Montelukast [Singulair] 10 mg PO HS 02/07/19 08/06/20 Albuterol Inhaler [Ventolin Hfa 2 puff INHALATION RT-Q4H PRN 08/06/20 08/06/20 Inhaler] Fluticasone Propion/Salmeterol 1 puff INHALATION RT-BID 08/06/20 08/06/20 [Wixela 500-50 Inhub] Ipratropium-Albuterol Nebulize 3 ml INHALATION RT-QID PRN 08/06/20 08/06/20 [Duoneb 0.5 mg-3 mg/3 ml Soln] Losartan [Cozaar] 50 mg PO HS 08/06/20 08/06/20 Allergies Allergy/AdvReac Type Severity Reaction Status Date / Time No Known Allergies Allergy Verified 08/06/20 10:45 Review of Systems ROS Statement: Those systems with pertinent positive or pertinent negative responses have been documented in the HPI. ROS Other: All systems not noted in ROS Statement are negative. Past Medical History Past Medical History: Asthma, GERD/Reflux Additional Past Medical History / Comment(s): dysphagia History of Any Multi-Drug Resistant Organisms: None Reported Past Surgical History: Breast Surgery Additional Past Surgical History / Comment(s): breast biopsy,EGD for dilatation Past Anesthesia/Blood Transfusion Reactions: No Reported Reaction Additional Past Anesthesia/Blood Transfusion Reaction / Comment(s): no hx blood transfusion Past Psychological History: No Psychological Hx Reported Smoking Status: Never smoker Past Alcohol Use History: Occasional Past Drug Use History: None Reported - Past Family History Mother Family Medical History: No Reported History General Exam Limitations: physical limitation Course Vital Signs 08/06/20 08/06/20 08/06/20 09:37 10:40 11:00 Temperature 103.0 F H 102.2 F H Pulse Rate 142 H 124 H Respiratory 18 18 18 Rate Blood Pressure 130/70 132/80 O2 Sat by Pulse 94 L 95 95 Oximetry Medical Decision Making - Lab Data Result diagrams: 08/06/20 10:12 08/06/20 10:12 Lab Results 08/06/20 08/06/20 08/06/20 Range/Units 10:12 10:12 10:12 WBC 10.6 (3.8-10.6) k/uL RBC 4.98 (3.80-5.40) m/uL Hgb 12.5 (11.4-16.0) gm/dL Hct 38.3 (34.0-46.0) % MCV 76.8 L (80.0-100.0) fL MCH 25.1 (25.0-35.0) pg MCHC 32.7 (31.0-37.0) g/dL RDW 16.6 H (11.5-15.5) % Plt Count 444 (150-450) k/uL MPV 6.5 Neutrophils % 90 % Lymphocytes % 4 % Monocytes % 5 % Eosinophils % 1 % Basophils % 0 % Neutrophils # 9.5 H (1.3-7.7) k/uL Lymphocytes # 0.4 L (1.0-4.8) k/uL Monocytes # 0.5 (0-1.0) k/uL Eosinophils # 0.1 (0-0.7) k/uL Basophils # 0.0 (0-0.2) k/uL Anisocytosis Slight Microcytosis Slight PT 10.2 (9.0-12.0) sec INR 0.9 (<1.2) APTT 21.6 L (22.0-30.0) sec Sodium 137 (137-145) mmol/L Potassium 4.6 (3.5-5.1) mmol/L Chloride 103 (98-107) mmol/L Carbon Dioxide 23 (22-30) mmol/L Anion Gap 11 mmol/L BUN 22 H (7-17) mg/dL Creatinine 0.77 (0.52-1.04) mg/dL Est GFR (CKD-EPI)AfAm >90 (>60 ml/min/1.73 sqM) Est GFR (CKD-EPI)NonAf 84 (>60 ml/min/1.73 sqM) Glucose 143 H (74-99) mg/dL Plasma Lactic Acid Hari (0.7-2.0) mmol/L Calcium 9.0 (8.4-10.2) mg/dL C-Reactive Protein 33.3 H (<10.0) mg/L Coronavirus (PCR) (Not Detectd) Influenza Type A RNA (Not Detectd) Influenza Type B (PCR) (Not Detectd) 08/06/20 08/06/20 08/06/20 Range/Units 10:12 10:12 10:37 WBC (3.8-10.6) k/uL RBC (3.80-5.40) m/uL Hgb (11.4-16.0) gm/dL Hct (34.0-46.0) % MCV (80.0-100.0) fL MCH (25.0-35.0) pg MCHC (31.0-37.0) g/dL RDW (11.5-15.5) % Plt Count (150-450) k/uL MPV Neutrophils % % Lymphocytes % % Monocytes % % Eosinophils % % Basophils % % Neutrophils # (1.3-7.7) k/uL Lymphocytes # (1.0-4.8) k/uL Monocytes # (0-1.0) k/uL Eosinophils # (0-0.7) k/uL Basophils # (0-0.2) k/uL Anisocytosis Microcytosis PT (9.0-12.0) sec INR (<1.2) APTT (22.0-30.0) sec Sodium (137-145) mmol/L Potassium (3.5-5.1) mmol/L Chloride (98-107) mmol/L Carbon Dioxide (22-30) mmol/L Anion Gap mmol/L BUN (7-17) mg/dL Creatinine (0.52-1.04) mg/dL Est GFR (CKD-EPI)AfAm (>60 ml/min/1.73 sqM) Est GFR (CKD-EPI)NonAf (>60 ml/min/1.73 sqM) Glucose (74-99) mg/dL Plasma Lactic Acid Hari 2.1 H* (0.7-2.0) mmol/L Calcium (8.4-10.2) mg/dL C-Reactive Protein (<10.0) mg/L Coronavirus (PCR) Not Detected (Not Detectd) Influenza Type A RNA Not Detected (Not Detectd) Influenza Type B (PCR) Not Detected (Not Detectd) Disposition Clinical Impression: Pneumonia Disposition: ADMITTED IP TO THIS HOSP Condition: Fair Referrals: Zach Uribe MD [Primary Care Provider] - 1-2 days Decision Time: 11:33
[2020-08-06 10:28] LABS: Anisocytosis Slight; Basophils % (A) 0 %; Eosinophils # (A) 0.1 k/uL (0-0.7); Eosinophils % (A) 1 %; HCT 38.3 % (34.0-46.0); HGB 12.5 gm/dL (11.4-16.0); Lymphocytes # (A) 0.4 k/uL (1.0-4.8); Lymphocytes % (A) 4 %; MCH 25.1 pg (25.0-35.0); MCHC 32.7 g/dL (31.0-37.0); MCV 76.8 fL (80.0-100.0); Mean Platelet Volume 6.5; Microcytosis Slight; Monocytes # (A) 0.5 k/uL (0-1.0); Monocytes % (A) 5 %; Neutrophils # (A) 9.5 k/uL (1.3-7.7); Neutrophils % (A) 90 %; Platelet Count 444 k/uL (150-450); RBC 4.98 m/uL (3.80-5.40); RDW 16.6 % (11.5-15.5); WBC 10.6 k/uL (3.8-10.6)
[2020-08-06 10:37] LABS: African American GFR (CKD) >90 (>60 ml/min/1.73 sqM); Anion Gap 11 mmol/L; Blood Urea Nitrogen 22 mg/dL (7-17); C Reactive Protein 33.3 mg/L (<10.0); Carbon Dioxide 23 mmol/L (22-30); Chloride 103 mmol/L (98-107); Glucose 143 mg/dL (74-99); Non-African American GFR(CKD) 84 (>60 ml/min/1.73 sqM); Potassium 4.6 mmol/L (3.5-5.1); Sodium 137 mmol/L (137-145)
--- NOTE | 2020-08-06 10:37 | XR ---
EXAMINATION TYPE: XR chest 1V portable DATE OF EXAM: 08/06/2020 COMPARISON: Chest x-ray 02/05/2020 HISTORY: Fever, tachycardia TECHNIQUE: Single frontal view of the chest is obtained. FINDINGS: There is some questionable nodular, patchy density at the right lung base. No pleural effu demario or pneumothorax, cardiac silhouette size is within normal limits, patient is rotated, heart size may be accentuated by technique. The osseous structures are intact. IMPRESSION: Findings may represent pneumonia at the right lung base correlate, follow-up as indicate d
[2020-08-06 10:45] LABS: INR 0.9 (<1.2); Prothrombin Time 10.2 sec (9.0-12.0)
[2020-08-06 11:21] LABS: Partial Thromboplastin Time 21.6 sec (22.0-30.0)
[2020-08-06] MEDS ORDERED: cefTRIAXone IN SWFI 1,000 MG/10 ML SYRINGE IVP STA (11:29)
[2020-08-06] MEDS ORDERED: AZITHROMYCIN 500 MG in SODIUM CHLORIDE 0.9% 250 ML IVPB STA (11:29)
[2020-08-06] MEDS ORDERED: ONDANSETRON 4 MG/2 ML VIAL IVP PRN (11:33)
[2020-08-06] MEDS ORDERED: NALOXONE 0.4 MG/ML 1 ML VIAL IV PRN (11:33)
[2020-08-06] MEDS ORDERED: ACETAMINOPHEN TAB 325 MG TAB PO PRN (11:33)
[2020-08-06 12:21] LABS: Appearance,Urine Clear (Clear); Bilirubin,Urine Negative (Negative); Blood,Urine Small (Negative); Color,Urine Yellow; Glucose,Urine (UA) Negative (Negative); Ketones,Urine Negative (Negative); Leukocyte Esterase,Urine Negative (Negative); Mucus,Urine Rare /hpf; Nitrite,Urine Negative (Negative); PH, Urine 5.5 (5.0-8.0); Protein,Urine Negative (Negative); RBC,Urine <1 /hpf (0-5); Specific Gravity,Urine 1.021 (1.001-1.035); Squamous Epithelial Cell,Urine 3 /hpf (0-4); Urobilinogen,Urine <2.0 mg/dL (<2.0); WBC,Urine <1 /hpf (0-5)
[2020-08-06] MEDS ORDERED: PNEUMONIA PROTOCOL UTILIZED 1 EACH MISC PO PRN (12:42)
--- NOTE | 2020-08-06 12:54 | P.HPIM ---
History of Present Illness Patient is a pleasant 59-year-old female came in with compensative cough congestion and fever chills. Cough has been going on for 7 days and fever started about the couple days ago. Patient feels tired week. Patient does have history of asthma did receive her flu vaccine and pneumococcal vaccine in January 2020. Patient is found to have infiltrate in the right lower lung villanueva patient was started on Rocephin and azithromycin subsequently was admitted. Patient denied any smoking history patient was tested negative for fl u and covid 19. Review of Systems REVIEW OF SYSTEMS: CONSTITUTIONAL: No fever, no malaise, no fatigue. HEENT: No recent visual problems or hearing problems. Denied any sore throat. CARDIOVASCULAR: No chest pain, orthopnea, PND, no palpitations, no syncope. PULMONARY: no hemoptysis. GASTROINTESTINAL: No diarrhea, no nausea, no vomiting, no abdominal pain. NEUROLOGICAL: No headaches, no weakness, no numbness. HEMATOLOGICAL: Denies any bleeding or petechiae. GENITOURINARY: Denies any burning micturition, frequency, or urgency. MUSCULOSKELETAL/RHEUMATOLOGICAL: Denies any joint pain, swelling, or any muscle pain. ENDOCRINE: Denies any polyuria or polydipsia. The rest of the 14-point review of systems is negative. Past Medical History Past Medical History: Asthma, GERD/Reflux, Hypertension, Osteoarthritis (OA), Pneumonia Additional Past Medical History / Comment(s): Bronchitis, past dysphagia better after EGD with dilation, diverticular disease, arthritis L foot, sinus problems History of Any Multi-Drug Resistant Organisms: None Reported Past Surgical History: Breast Surgery Additional Past Surgical History / Comment(s): L breast benign biopsy, EGD for dilatation, colonoscopy Past Anesthesia/Blood Transfusion Reactions: No Reported Reaction Additional Past Anesthesia/Blood Transfusion Reaction / Comment(s): no hx blood transfusion Smoking Status: Never smoker - Past Family History Mother Family Medical History: No Reported History Additional Family Medical History / Comment(s): UTIs. Mother is . Father Family Medical History: Cancer Additional Family Medical History / Comment(s): Leukemia. Medications and Allergies Home Medications Medication Instructions Recorded Confirmed Type Loratadine [Claritin] 10 mg PO HS 09/14/18 08/06/20 History Omeprazole 20 mg PO BID 09/14/18 08/06/20 History Montelukast [Singulair] 10 mg PO HS 02/07/19 08/06/20 History Albuterol Inhaler [Ventolin Hfa 2 puff INHALATION RT-Q4H PRN 08/06/20 08/06/20 History Inhaler] Fluticasone Propion/Salmeterol 1 puff INHALATION RT-BID 08/06/20 08/06/20 History [Wixela 500-50 Inhub] Ipratropium-Albuterol Nebulize 3 ml INHALATION RT-QID PRN 08/06/20 08/06/20 History [Duoneb 0.5 mg-3 mg/3 ml Soln] Losartan [Cozaar] 50 mg PO HS 08/06/20 08/06/20 History Allergies Allergy/AdvReac Type Severity Reaction Status Date / Time No Known Allergies Allergy Verified 08/06/20 10:45 Physical Exam Vitals: Vital Signs Temp Pulse Resp BP Pulse Ox 08/06/20 12:22 100.8 F H 117 H 18 126/53 95 08/06/20 12:00 100.8 F H 117 H 18 126/53 95 08/06/20 11:00 18 95 08/06/20 10:40 102.2 F H 124 H 18 132/80 95 08/06/20 09:37 103.0 F H 142 H 18 130/70 94 L Intake and Output 08/05/20 08/06/20 08/06/20 22:59 06:59 14:59 Other: Weight 109.769 kg PHYSICAL EXAMINATION: GENERAL: The patient is alert and oriented x3, not in any acute distress. Well developed, well nourished. HEENT: Pupils are round and equally reacting to light. EOMI. No scleral icterus. No conjunctival pallor. Normocephalic, atraumatic. No pharyngeal erythema. No thyromegaly. CARDIOVASCULAR: S1 and S2 present. No murmurs, rubs, or gallops. PULMONARY: She does have wheezing bilaterally mild wheezing with bronchophony right posterior inferior lung villanueva. ABDOMEN: Soft, nontender, nondistended, normoactive bowel sounds. No palpable organomegaly. MUSCULOSKELETAL: No joint swelling or deformity. EXTREMITIES: No cyanosis, clubbing, or pedal edema. NEUROLOGICAL: Gross neurological examination did not reveal any focal deficits. SKIN: No rashes. Results CBC & Chem 7: 08/06/20 10:12 08/06/20 10:12 Labs: Abnormal Lab Results - Last 24 Hours (Table) 08/06/20 08/06/20 08/06/20 Range/Units 10:12 10:12 10:12 MCV 76.8 L (80.0-100.0) fL RDW 16.6 H (11.5-15.5) % Neutrophils # 9.5 H (1.3-7.7) k/uL Lymphocytes # 0.4 L (1.0-4.8) k/uL APTT 21.6 L (22.0-30.0) sec BUN 22 H (7-17) mg/dL Glucose 143 H (74-99) mg/dL Plasma Lactic Acid Hari (0.7-2.0) mmol/L C-Reactive Protein 33.3 H (<10.0) mg/L Urine Blood (Negative) Urine Mucus (None) /hpf 08/06/20 08/06/20 Range/Units 10:12 12:06 MCV (80.0-100.0) fL RDW (11.5-15.5) % Neutrophils # (1.3-7.7) k/uL Lymphocytes # (1.0-4.8) k/uL APTT (22.0-30.0) sec BUN (7-17) mg/dL Glucose (74-99) mg/dL Plasma Lactic Acid Hari 2.1 H* (0.7-2.0) mmol/L C-Reactive Protein (<10.0) mg/L Urine Blood Small H (Negative) Urine Mucus Rare H (None) /hpf Thrombosis Risk Factor Assmnt - Choose All That Apply Any of the Below Risk Factors Present?: Yes Each Factor Represents 1 point: Obesity (BMI >25), Serious lung disease incl. pneumonia (< 1month) Other Risk Factors: Yes Each Risk Factor Represents 2 Points: Age 61-74 years Other congenital or acquired thrombophilia - If yes, enter type in comment: No Thrombosis Risk Factor Assessment Total Risk Factor Score: 4 Thrombosis Risk Factor Assessment Level: Moderate Risk Assessment and Plan Plan: -Right inferior lobe pneumonia and sepsis secondary to that. Patient does have mildly elevated the lactic acid patient will continue on IV fluids patient will be started on Rocephin to 2 g daily along with azithromycin 500 daily. -Mild acute asthma exacerbation: Patient was started on inhalational treatments and inhaled steroids. -Gastroesophageal reflux disease -Hypertension -Osteoarthritis -DVT prophylaxis with Lovenox and GI prophylaxis with the Protonix
[2020-08-06] MEDS ORDERED: AZITHROMYCIN 500 MG TAB PO SCH (13:00)
[2020-08-06] MEDS: FAMOTIDINE 20 MG TAB PO SCH ×2 (14:06→20:35)
[2020-08-06] MEDS: IPRATROPIUM-ALBUTEROL 3 ML NEB INHALATION PRN ×2 (14:27→19:03)
[2020-08-06] MEDS: BUDESONIDE 0.5 MG/2 ML NEBU INHALATION SCH (19:03)
[2020-08-06] MEDS: SODIUM CHLORIDE 0.9% 1,000 ML IV SCH (20:37)
[2020-08-07] MEDS: SODIUM CHLORIDE 0.9% 1,000 ML IV SCH ×2 (04:11→19:59)
[2020-08-07] MEDS: IPRATROPIUM-ALBUTEROL 3 ML NEB INHALATION PRN ×3 (04:15→16:04)
[2020-08-07 07:04] LABS: Anisocytosis Slight; HCT 33.9 % (34.0-46.0); HGB 10.6 gm/dL (11.4-16.0); Hypochromasia Moderate; MCH 24.5 pg (25.0-35.0); MCHC 31.2 g/dL (31.0-37.0); MCV 78.5 fL (80.0-100.0); Mean Platelet Volume 6.7; Microcytosis Slight; Platelet Count 384 k/uL (150-450); RBC 4.32 m/uL (3.80-5.40); RDW 16.7 % (11.5-15.5); WBC 13.2 k/uL (3.8-10.6)
[2020-08-07 07:18] LABS: Calcium 8.2 mg/dL (8.4-10.2); Potassium 3.9 mmol/L (3.5-5.1)
[2020-08-07] MEDS: AZITHROMYCIN 500 MG TAB PO SCH (08:17)
[2020-08-07] MEDS: ENOXAPARIN 40 MG/0.4 ML SYRINGE SQ SCH (08:17)
[2020-08-07] MEDS: FAMOTIDINE 20 MG TAB PO SCH ×2 (08:17→20:01)
[2020-08-07] MEDS: BUDESONIDE 0.5 MG/2 ML NEBU INHALATION SCH ×2 (09:33→20:33)
--- NOTE | 2020-08-07 15:32 | P.PN ---
Subjective 59-year-old female was admitted for sepsis secondary to right lower lobe pneumonia and asthma exacerbation patient respiratory status improved and pa tient wheezing improved. Patient is still be diaphoretic patient will be continued on IV antibiotics and awaiting sputum cultures and blood cultures. Patient although feels much better compared to yesterday Constitutional: Denied any fatigue denied any fever. Cardio vascular: denied any chest pain, palpitations Gastrointestinal denied any nausea vomiting Pulmonary: Denied any shortness of breath cough Neurologic denied any new focal deficits All inpatient medications were reviewed and appropriate changes in these medications as dictated in the interval history and assessment and plan. Objective - Vital Signs Vital signs: Vital Signs Temp 98.4 F 08/07/20 14:00 Pulse 99 08/07/20 14:00 Resp 20 08/07/20 14:00 BP 123/83 08/07/20 14:00 Pulse Ox 96 08/07/20 14:00 Intake & Output 08/06/20 08/07/20 08/07/20 18:59 06:59 18:59 Intake Total 120 200 600 Balance 120 200 600 Weight 109.769 kg Intake: Oral 120 200 600 Other: # Voids 1 2 - Exam PHYSICAL EXAMINATION: GENERAL: The patient is alert and oriented x3, not in any acute distress. Well developed, well nourished. HEENT: Pupils are round and equally reacting to light. EOMI. No scleral icterus. No conjunctival pallor. Normocephalic, atraumatic. No pharyngeal erythema. No th yromegaly. CARDIOVASCULAR: S1 and S2 present. No murmurs, rubs, or gallops. PULMONARY: Chest is clear to auscultation, no wheezing or crackles. Bronchophony in the right posterior inferior lung villanueva ABDOMEN: Soft, nontender, nondistended, normoactive bowel sounds. No palpable organomegaly. MUSCULOSKELETAL: No joint swelling or deformity. EXTREMITIES: No cyanosis, clubbing, or pedal edema. NEUROLOGICAL: Gross neurological examination did not reveal any focal deficits. SKIN: No rashes. - Labs CBC & Chem 7: 08/07/20 05:59 08/07/20 05:59 Labs: Abnormal Lab Results - Last 24 Hours (Table) 08/07/20 08/07/20 Range/Units 05:59 05:59 WBC 13.2 H (3.8-10.6) k/uL Hgb 10.6 L (11.4-16.0) gm/dL Hct 33.9 L (34.0-46.0) % MCV 78.5 L (80.0-100.0) fL MCH 24.5 L (25.0-35.0) pg RDW 16.7 H (11.5-15.5) % BUN 18 H (7-17) mg/dL Glucose 112 H (74-99) mg/dL Calcium 8.2 L (8.4-10.2) mg/dL Microbiology - Last 24 Hours (Table) 08/06/20 10:12 Blood Culture - Preliminary Blood No Growth after 24 hours Assessment and Plan Plan: -Right inferior lobe pneumonia and sepsis secondary to that. Patient will be continued on Rocephin to 2 g daily along with azithromycin 500 daily. -Mild acute asthma exacerbation: Proved with inhaled steroids will not require any systemic steroids -Gastroesophageal reflux disease -Hypertension -Osteoarthritis -DVT prophylaxis with Lovenox and GI prophylaxis with the Protonix
[2020-08-08] MEDS: IPRATROPIUM-ALBUTEROL 3 ML NEB INHALATION PRN ×2 (02:08→08:05)
[2020-08-08] MEDS: SODIUM CHLORIDE 0.9% 1,000 ML IV SCH ×3 (03:54→07:48)
[2020-08-08 05:58] LABS: Anisocytosis Slight; HCT 30.8 % (34.0-46.0); HGB 10.4 gm/dL (11.4-16.0); MCH 25.8 pg (25.0-35.0); MCHC 33.7 g/dL (31.0-37.0); MCV 76.6 fL (80.0-100.0); Mean Platelet Volume 6.6; Microcytosis Slight; Platelet Count 341 k/uL (150-450); RBC 4.02 m/uL (3.80-5.40); RDW 16.4 % (11.5-15.5); WBC 8.4 k/uL (3.8-10.6)
[2020-08-08] MEDS: FAMOTIDINE 20 MG TAB PO SCH (07:59)
[2020-08-08] MEDS: ENOXAPARIN 40 MG/0.4 ML SYRINGE SQ SCH (07:59)
[2020-08-08] MEDS: AZITHROMYCIN 500 MG TAB PO SCH (07:59)
[2020-08-08] MEDS: BUDESONIDE 0.5 MG/2 ML NEBU INHALATION SCH (08:05)
[2020-08-08 08:50] VITALS: BP 157/81; PULSE 104; RESP 20; TEMP 98
--- NOTE | 2020-08-08 16:03 | P.DS ---
Providers Date of admission: 08/06/20 11:33 Expected date of discharge: 08/08/20 Attending physician: Yoselin Ross Primary care physician: Zach Uribe MD Hospital Course: Final diagnosis -Right inferior lobe pneumonia and sepsis secondary to that -Mild acute asthma exacerbation -Gastroesophageal reflux disease -Hypertension -Osteoarthritis -DVT prophylaxis -GI prophylaxis Discharge disposition Patient is being discharged in a stable condition with guarded prognosis to home. Patient will follow-up with Dr. Zach Uribe upon discharge. She will also follow-up with Dr. Clayton in the outpatient setting. Patient will continue with a short course of oral antibiotics in the form of zithromax 500 mg of the next 3 days along with Ceftin 500 mg twice daily for the next 7 days to complete the course. Total time taken is 35 minutes. Hospital course Patient is a pleasant 59-year-old female came in with compensative cough congestion and fever chills. Cough has been going on for 7 days and fever started about the couple days ago. Patient feels tired week. Patient does have history of asthma did receive her flu vaccine and pneumococcal vaccine in January 2020. Patient is found to have infiltrate in the right lower lung villanueva patient was started on Rocephin and azithromycin subsequently was admitted. Patient denied any smoking history patient was tested negative for flu and covid 19. 08/07/2020 59-year-old female was admitted for sepsis secondary to right lower lobe pneumonia and asthma exacerbation patient respiratory status improved and patient wheezing improved. Patient is still be diaphoretic patient will be continued on IV antibiotics and awaiting sputum cultures and blood cultures. Patient although feels much better compared to yesterday 08/08/2020 Patient is seen and evaluated and follow-up states she is doing much better and is asking to go home. She was maintained on IV antibiotics and we'll transition to oral Zithromax along with Ceftin for the next one week to complete the course. Patient will continue with breathing inhalational treatments along with inhaled steroids in the outpatient setting. Patient was instructed to follow-up with primary care provider along with pulmonary in the outpatient setting. Currently no reports of chest pain, worsening shortness of breath, or palpitations. Patient is afebrile. No reports of nausea or vomiting and patient is tolerating diet. Patient will be discharged home today. On exam vital signs are stable. Cardio S1, S2 are muffled. Respiratory shows diminished breath sounds at the bases with no wheezing or rhonchi noted. Abdomen is soft and nontender. Nervous system shows no focal deficits. Please refer to medication reconciliation sheet for a list of medications. Patient Condition at Discharge: Fair Plan - Discharge Summary Discharge Rx Participant: No New Discharge Prescriptions: New Cefuroxime Axetil [Ceftin] 500 mg PO BID 7 Days #14 tab Budesonide/Formoterol Fumarate [Symbicort 160-4.5 Mcg Inhaler] 1 puff IH BID 30 Days #1 hfa.aer.ad Acetaminophen Tab [Tylenol] 650 mg PO Q6HR PRN tab PRN Reason: Mild Pain Or Fever > 100.5 Azithromycin [Zithromax] 500 mg PO DAILY 3 Days #3 tab Benzocaine/Menthol Lozeng [Cepacol lozenge] 1 each MUCOUS MEM Q4HR #20 lozenge Continue Loratadine [Claritin] 10 mg PO HS Omeprazole 20 mg PO BID Montelukast [Singulair] 10 mg PO HS Ipratropium-Albuterol Nebulize [Duoneb 0.5 mg-3 mg/3 ml Soln] 3 ml INHALATION RT-QID PRN PRN Reason: Shortness Of Breath Or Wheezing Losartan [Cozaar] 50 mg PO HS Albuterol Inhaler [Ventolin Hfa Inhaler] 2 puff INHALATION RT-Q4H PRN PRN Reason: Shortness Of Breath Fluticasone Propion/Salmeterol [Wixela 500-50 Inhub] 1 puff INHALATION RT-BID Discharge Medication List Loratadine [Claritin] 10 mg PO HS 09/14/18 [History] Omeprazole 20 mg PO BID 09/14/18 [History] Montelukast [Singulair] 10 mg PO HS 02/07/19 [History] Albuterol Inhaler [Ventolin Hfa Inhaler] 2 puff INHALATION RT-Q4H PRN 08/06/20 [History] Fluticasone Propion/Salmeterol [Wixela 500-50 Inhub] 1 puff INHALATION RT-BID 08/06/20 [History] Ipratropium-Albuterol Nebulize [Duoneb 0.5 mg-3 mg/3 ml Soln] 3 ml INHALATION RT-QID PRN 08/06/20 [History] Losartan [Cozaar] 50 mg PO HS 08/06/20 [History] Acetaminophen Tab [Tylenol] 650 mg PO Q6HR PRN tab 08/08/20 [Rx] Azithromycin [Zithromax] 500 mg PO DAILY 3 Days #3 tab 08/08/20 [Rx] Benzocaine/Menthol Lozeng [Cepacol lozenge] 1 each MUCOUS MEM Q4HR #20 lozenge 08/08/20 [Rx] Budesonide/Formoterol Fumarate [Symbicort 160-4.5 Mcg Inhaler] 1 puff IH BID 30 Days #1 hfa.aer.ad 08/08/20 [Rx] Cefuroxime Axetil [Ceftin] 500 mg PO BID 7 Days #14 tab 08/08/20 [Rx] Follow up Appointment(s)/Referral(s): Zach Uribe MD [Primary Care Provider] - 08/13/20 10:00 am Markus Clayton DO [Doctor of Osteopathic Medicine] - 08/26/20 10:45 am Activity/Diet/Wound Care/Special Instructions: Activity Limited until follow-up Follow-up with primary care provider Follow up with Pulmonary outpatient Continue with antibiotics until finished continue current diet Discharge Disposition: HOME SELF-CARE
== END 2020-08-08 11:25 | disposition home or self-care (01) | DRG 871 ==
LOC: EC 09:33 → 6PED 11:33
PROVIDERS: ADMIT Hospitalist; ATTEND Hospitalist
DX: A41.9 Sepsis, unspecified organism (principal); J18.9 Pneumonia, unspecified organism; J45.901 Unspecified asthma with (acute) exacerbation; I10 Essential (primary) hypertension; K21.9 Gastro-esophageal reflux disease without esophagitis; M19.90 Unspecified osteoarthritis, unspecified site; Z20.822 Contact with and (suspected) exposure to COVID-19; Z79.899 Other long term (current) drug therapy; Z80.6 Family history of leukemia; Z20.828 Contact with and (suspected) exposure to other viral communicable diseases
CPT/HCPCS: 36415; 71045; 80048; 81001; 83605; 85025; 85027; 85610; 85730; 86140; 87040; 87502; 87635; 94640; 94760; 96361; 96365; 96375; 99284

== ENCOUNTER 2020-12-27 10:43 | Day surgery (SDC) | payer BC ==
[2020-12-25 09:43] VITALS: BMI 44.2
[~2020-12-27 10:43] MED LIST changes: +LIDOCAINE 1% (10MG/ML) FOR IV START INTRADERMA PRN; -LIDOCAINE 1% 20 ML VIAL (10MG/ML) FOR IV START INTRADERMA PRN
[2020-12-27 11:07] VITALS: TEMP 97.8
[2020-12-27] MEDS ORDERED: LACTATED RINGERS 1,000 ML IV ONE (11:08)
[2020-12-27] MEDS ORDERED: PROPOFOL 10 MG/ML 20 ML VIAL IV ONE (11:56)
--- NOTE | 2020-12-27 12:17 | P.PCN ---
Date of Procedure: 12/27/20 Procedure(s) Performed: BRIEF HISTORY: Patient is a 60-year-old pleasant white female scheduled for an elective colonoscopy as a part of screening for colorectal neoplasia. PROCEDURE PERFORMED: Colonoscopy. PREOPERATIVE DIAGNOSIS: Screening for colon cancer. IV sedation per Anesthesia. PROCEDURE: After informed consent was obtained, the patient, was brought into the endoscopy unit. IV sedation was administered by Anesthesia under continuous monitoring. Digital rectal examination was normal. Initially the Olympus CF-160 flexible video colonoscope was then inserted in the rectum, gradually advanced into the cecum without any difficulty. Careful examination was performed as the scope was gradually being withdrawn. Ileocecal valve and the appendiceal orifice were visualized and appeared normal. Prep was excellent. Mucosa of the cecum, ascending colon, transverse colon, descending colon, sigmoid colon, and rectum appeared normal. At her sigmoid diverticulosis seen. Retroflexion was performed in the rectum and no lesions were seen. The patient tolerated the procedure well. IMPRESSION: Normal-appearing colon from rectum to cecum with no evidence of colorectal neoplasia. Scattered sigmoid diverticulosis RECOMMENDATIONS: Findings of this examination were discussed with the patient as well as her family. She was advised to have a repeat screening colonoscopy in 10 years.
[2020-12-27 12:26] VITALS: BP 128/80; PULSE 95; RESP 16
== END 2020-12-27 12:53 ==
LOC: ORWHC2ENDO 10:43
PROVIDERS: ATTEND Internal Medicine Gastroenterology
DX: Z12.11 Encounter for screening for malignant neoplasm of colon (principal); K57.30 Diverticulosis of large intestine without perforation or abscess without bleeding; I10 Essential (primary) hypertension; J45.909 Unspecified asthma, uncomplicated; K21.9 Gastro-esophageal reflux disease without esophagitis; Z79.899 Other long term (current) drug therapy
CPT/HCPCS: J2704; G0121

== ENCOUNTER 2021-03-09 09:20 | Emergency (ER) | payer BC ==
[2021-03-09 09:46] VITALS: BP 135/78; PULSE 117; RESP 18; TEMP 99.4
--- NOTE | 2021-03-09 10:11 | XR ---
EXAMINATION TYPE: XR chest 2V DATE OF EXAM: 03/09/2021 COMPARISON: Chest x-ray 08/06/2020, CT 02/07/2019 HISTORY: Fever and cough TECHNIQUE: Frontal and lateral views of the chest are obtained. FINDINGS: Interstitium is increased. Patchy densities present in the bilateral lungs. There is no ev ident pneumothorax or pleural effusion. Cardiac mediastinal silhouette is likely stable. There are ov erlying artifacts. Hiatal hernia is present. Azygos lobe is present. IMPRESSION: Correlate for possible pneumonia, follow-up suggested.
--- NOTE | 2021-03-09 10:29 | ED ---
URI HPI - General Chief Complaint: Upper Respiratory Infection Stated Complaint: Fever/Cough Time Seen by Provider: 03/09/21 09:25 Source: patient, RN notes reviewed Mode of arrival: ambulatory Limitations: no limitations - History of Present Illness Initial Comments: this is 60-year-old female presents emergency Department chief complaint of fever cough congestion. Patient states been sick last few days. Patient does have history of asthma. no covid exposure. Patient denies any chest pain mild nasal congestion, sore throat no ear pain.patient does use a nebulizer at home no chest pain, minimal shortness of breath - Related Data Home Medications Medication Instructions Recorded Confirmed Loratadine [Claritin] 10 mg PO HS 09/14/18 12/25/20 Omeprazole 20 mg PO BID 09/14/18 12/25/20 Montelukast [Singulair] 10 mg PO HS 02/07/19 12/25/20 Albuterol Inhaler [Ventolin Hfa 2 puff INHALATION RT-Q4H PRN 08/06/20 12/25/20 Inhaler] Fluticasone Propion/Salmeterol 1 puff INHALATION RT-BID 08/06/20 12/25/20 [Wixela 500-50 Inhub] Ipratropium-Albuterol Nebulize 3 ml INHALATION RT-QID PRN 08/06/20 12/25/20 [Duoneb 0.5 mg-3 mg/3 ml Soln] Losartan [Cozaar] 50 mg PO HS 08/06/20 12/25/20 Previous Rx's Medication Instructions Recorded Acetaminophen Tab [Tylenol] 650 mg PO Q6HR PRN tab 08/08/20 Azithromycin [Zithromax Z-pack (6 0 mg PO DIRECTED #1 packet 03/09/21 tabs)] predniSONE 50 mg PO DAILY #5 tab 03/09/21 Allergies Allergy/AdvReac Type Severity Reaction Status Date / Time No Known Allergies Allergy Verified 03/09/21 09:46 Review of Systems ROS Statement: Those systems with pertinent positive or pertinent negative responses have been documented in the HPI. ROS Other: All systems not noted in ROS Statement are negative. Past Medical History Past Medical History: Asthma, GERD/Reflux, Hypertension Additional Past Medical History / Comment(s): dysphagia History of Any Multi-Drug Resistant Organisms: None Reported Past Surgical History: Breast Surgery Additional Past Surgical History / Comment(s): breast biopsy,EGD for dilatation Past Anesthesia/Blood Transfusion Reactions: No Reported Reaction Additional Past Anesthesia/Blood Transfusion Reaction / Comment(s): no hx blood transfusion Past Psychological History: No Psychological Hx Reported Smoking Status: Never smoker Past Alcohol Use History: Occasional Past Drug Use History: None Reported - Past Family History Mother Family Medical History: No Reported History Additional Family Medical History / Comment(s): UTIs. Mother is . Father Family Medical History: Cancer Additional Family Medical History / Comment(s): Leukemia. General Exam Limitations: no limitations General appearance: alert, in no apparent distress Head exam: Present: atraumatic, normocephalic, normal inspection Eye exam: Present: normal appearance, PERRL, EOMI. Absent: scleral icterus, conjunctival injection, periorbital swelling ENT exam: Present: normal exam, mucous membranes moist Neck exam: Present: normal inspection, full ROM. Absent: tenderness, meningismus, lymphadenopathy Respiratory exam: Present: wheezes. Absent: normal lung sounds bilaterally, respiratory distress, rales, rhonchi, stridor Cardiovascular Exam: Present: regular rate (heart rate was 98), normal rhythm, normal heart sounds. Absent: systolic murmur, diastolic murmur, rubs, gallop, clicks Course Vital Signs 03/09/21 09:43 Temperature 99.4 F Pulse Rate 117 H Respiratory 18 Rate Blood Pressure 135/78 O2 Sat by Pulse 94 L Oximetry Medical Decision Making - Medical Decision Making x-ray shows evidence of early pneumonia, COVID-19 negative. Patiently and will discharge on oral antibiotics with steroids for her asthma contributing treatments, Tylenol Motrin for her fever return parameters were discussed patient agrees to plan. - Lab Data Lab Results 03/09/21 Range/Units 09:42 Coronavirus (PCR) Not Detected (Not Detectd) Disposition Clinical Impression: Pneumonia Disposition: HOME SELF-CARE Condition: Stable Instructions (If sedation given, give patient instructions): Pneumonia (ED) Additional Instructions: Please return to the Emergency Department if symptoms worsen or any other concerns. Prescriptions: predniSONE 50 mg PO DAILY #5 tab Azithromycin [Zithromax Z-pack (6 tabs)] 0 mg PO DIRECTED #1 packet Is patient prescribed a controlled substance at d/c from ED?: No Referrals: Rudolph Walden III, MD [Primary Care Provider] - 1-2 days Time of Disposition: 10:28
== END 2021-03-09 10:31 | disposition home or self-care (01) ==
LOC: EC 09:20
DX: J18.9 Pneumonia, unspecified organism (principal); J45.909 Unspecified asthma, uncomplicated; I10 Essential (primary) hypertension; K21.9 Gastro-esophageal reflux disease without esophagitis; Z79.899 Other long term (current) drug therapy; Z20.822 Contact with and (suspected) exposure to COVID-19; Z79.51 Long term (current) use of inhaled steroids
CPT/HCPCS: 71046; 87635; 99283

== ENCOUNTER → 2021-03-25 | Outpatient (CLI) | payer BC | END | disposition home or self-care (01) | LOC: LABWHC1 14:28 | PROVIDERS: ATTEND Family Medicine | DX: R06.02 Shortness of breath (principal) | CPT/HCPCS: U0003; C9803 ==

== ENCOUNTER 2021-04-24 14:59 | Emergency (ER) | payer BC ==
--- NOTE | 2021-04-24 15:48 | ED ---
General Adult HPI - General Chief complaint: Upper Respiratory Infection Stated complaint: Fever,chest pain Time Seen by Provider: 04/24/21 15:48 Source: patient Mode of arrival: ambulatory Limitations: no limitations - History of Present Illness Initial comments: Patient presents to the ED complaining of having a cough and nasal congestion for the past 2 days or so, and a fever that developed this morning. Patient states that she took a dose of Tylenol for her fever this morning. Patient also states that she has asthma, and she states that she had dyspnea and chest tightness this morning, which improved with a home neb treatment. Patient denie s having any chest tightness or dyspnea currently. Patient states that she was recently exposed to a few people at work with Covid. Patient states that she is fully vaccinated against Covid. Patient denies trauma or injury, headache, focal neuro deficit, neck/arm/jaw/back pain, pleuritic pain, hemoptysis, palpitations, dizziness, nausea/vomiting/diaphoresis, abdominal pain, dysuria or urinary symptoms, leg or calf swelling or pain, or any other symptoms or complaints. - Related Data Home Medications Medication Instructions Recorded Confirmed Loratadine [Claritin] 10 mg PO HS 09/14/18 04/24/21 Omeprazole 20 mg PO BID 09/14/18 04/24/21 Fluticasone Propion/Salmeterol 1 puff INHALATION RT-BID 08/06/20 04/24/21 [Wixela 500-50 Inhub] Ipratropium-Albuterol Nebulize 3 ml INHALATION RT-QID PRN 08/06/20 04/24/21 [Duoneb 0.5 mg-3 mg/3 ml Soln] Losartan [Cozaar] 50 mg PO HS 08/06/20 04/24/21 Ascorbic Acid [Vitamin C] 500 mg PO DAILY 04/24/21 04/24/21 Cholecalciferol [Vitamin D3 (25 25 mcg PO DAILY 04/24/21 04/24/21 Mcg = 1000 Iu)] Allergies Allergy/AdvReac Type Severity Reaction Status Date / Time No Known Allergies Allergy Verified 04/24/21 17:59 Review of Systems ROS Statement: Those systems with pertinent positive or pertinent negative responses have been documented in the HPI. ROS Other: All systems not noted in ROS Statement are negative. Past Medical History Past Medical History: Asthma, GERD/Reflux, Hypertension Additional Past Medical History / Comment(s): dysphagia History of Any Multi-Drug Resistant Organisms: None Reported Past Surgical History: Breast Surgery Additional Past Surgical History / Comment(s): breast biopsy,EGD for dilatation Past Anesthesia/Blood Transfusion Reactions: No Reported Reaction Additional Past Anesthesia/Blood Transfusion Reaction / Comment(s): no hx blood transfusion Past Psychological History: No Psychological Hx Reported Smoking Status: Never smoker Past Alcohol Use History: Occasional Past Drug Use History: None Reported - Past Family History Mother Family Medical History: No Reported History Additional Family Medical History / Comment(s): UTIs. Mother is . Father Family Medical History: Cancer Additional Family Medical History / Comment(s): Leukemia. General Exam Limitations: no limitations General appearance: alert, in no apparent distress Head exam: Present: atraumatic, normocephalic Eye exam: Present: normal appearance, EOMI ENT exam: Present: normal oropharynx, mucous membranes moist Neck exam: Present: other (Trachea is in midline) Respiratory exam: Present: normal lung sounds bilaterally. Absent: respiratory distress, wheezes, rales, rhonchi, stridor, chest wall tenderness Cardiovascular Exam: Present: normal rhythm, tachycardia, normal heart sounds, other (Normal radial pulses bilaterally) GI/Abdominal exam: Present: soft. Absent: distended, tenderness, guarding Extremities exam: Present: other (Negative Homans sign bilaterally). Absent: tenderness, pedal edema, calf tenderness Neurological exam: Present: alert, oriented X3. Absent: motor sensory deficit Psychiatric exam: Present: normal affect, normal mood Skin exam: Present: warm, dry, intact, normal color Course Vital Signs 04/24/21 04/24/21 04/24/21 15:01 16:00 16:04 Temperature 98.4 F Pulse Rate 114 H 101 H Respiratory 20 18 18 Rate Blood Pressure 119/74 122/74 O2 Sat by Pulse 96 97 Oximetry 04/24/21 04/24/21 04/24/21 16:30 17:00 18:30 Temperature Pulse Rate 96 97 98 Respiratory 18 18 18 Rate Blood Pressure 125/73 143/76 136/70 O2 Sat by Pulse 97 97 96 Oximetry - Reevaluation(s) Reevaluation #1: 04/24/21 19:25 Patient denies development of any new symptoms while in the ED. Patient remains alert and breathing comfortably. Patient is aware of her test results, and she feels comfortable being discharged home at this time. Patient was counseled about chest pain, dyspnea and upper respiratory infections. Patient was clearly explained return and follow-up instructions. Patient was instructed to follow up closely with her primary care provider. Patient was also instructed to have a low threshold for return to the emergency department should her symptoms worsen. Patient feels comfortable with this plan. EKG Findings - EKG Comments: EKG Findings:: Sinus tachycardia, ventricular rate of 109 bpm, no ectopy, rightward axis, incomplete right bundle branch block, normal AR and QRS intervals, normal QT interval, nonspecific ST abnormality, no significant change when compared 01/01/2020 EKG Medical Decision Making - Medical Decision Making Patient's troponin is negative. Patient's chest x-ray does not show any acute a bnormality. Patient's Covid test is negative. I suspect that the patient's symptoms are likely secondary to a viral upper respiratory infection. Will discharge patient home at this time with clear return and follow up instructions given. Patient feels comfortable with this plan. - Lab Data Result diagrams: 04/24/21 15:16 04/24/21 15:16 Lab Results 04/24/21 04/24/21 04/24/21 Range/Units 15:16 15:16 15:16 WBC 15.7 H (3.8-10.6) k/uL RBC 4.77 (3.80-5.40) m/uL Hgb 12.8 (11.4-16.0) gm/dL Hct 39.5 (34.0-46.0) % MCV 82.9 (80.0-100.0) fL MCH 26.9 (25.0-35.0) pg MCHC 32.5 (31.0-37.0) g/dL RDW 16.0 H (11.5-15.5) % Plt Count 316 (150-450) k/uL MPV 7.3 Neutrophils % 86 % Lymphocytes % 8 % Monocytes % 5 % Eosinophils % 0 % Basophils % 0 % Neutrophils # 13.5 H (1.3-7.7) k/uL Lymphocytes # 1.2 (1.0-4.8) k/uL Monocytes # 0.8 (0-1.0) k/uL Eosinophils # 0.1 (0-0.7) k/uL Basophils # 0.0 (0-0.2) k/uL PT 10.1 (9.0-12.0) sec INR 0.9 (<1.2) APTT 23.8 (22.0-30.0) sec Sodium 136 L (137-145) mmol/L Potassium 4.2 (3.5-5.1) mmol/L Chloride 104 (98-107) mmol/L Carbon Dioxide 21 L (22-30) mmol/L Anion Gap 11 mmol/L BUN 26 H (7-17) mg/dL Creatinine 0.81 (0.52-1.04) mg/dL Est GFR (CKD-EPI)AfAm >90 (>60 ml/min/1.73 sqM) Est GFR (CKD-EPI)NonAf 79 (>60 ml/min/1.73 sqM) Glucose 126 H (74-99) mg/dL Calcium 8.6 (8.4-10.2) mg/dL Total Bilirubin 0.8 (0.2-1.3) mg/dL AST 24 (14-36) U/L ALT 20 (4-34) U/L Alkaline Phosphatase 96 (38-126) U/L Troponin I (0.000-0.034) ng/mL NT-Pro-B Natriuret Pep pg/mL Total Protein 6.9 (6.3-8.2) g/dL Albumin 3.8 (3.5-5.0) g/dL Urine Color Urine Appearance (Clear) Urine pH (5.0-8.0) Ur Specific [place] (1.001-1.035) Urine Protein (Negative) Urine Glucose (UA) (Negative) Urine Ketones (Negative) Urine Blood (Negative) Urine Nitrite (Negative) Urine Bilirubin (Negative) Urine Urobilinogen (<2.0) mg/dL Ur Leukocyte Esterase (Negative) Urine RBC (0-5) /hpf Urine WBC (0-5) /hpf Ur Squamous Epith Cells (0-4) /hpf Urine Bacteria (None) /hpf Coronavirus (PCR) (Not Detectd) 04/24/21 04/24/21 04/24/21 Range/Units 15:16 15:16 15:36 WBC (3.8-10.6) k/uL RBC (3.80-5.40) m/uL Hgb (11.4-16.0) gm/dL Hct (34.0-46.0) % MCV (80.0-100.0) fL MCH (25.0-35.0) pg MCHC (31.0-37.0) g/dL RDW (11.5-15.5) % Plt Count (150-450) k/uL MPV Neutrophils % % Lymphocytes % % Monocytes % % Eosinophils % % Basophils % % Neutrophils # (1.3-7.7) k/uL Lymphocytes # (1.0-4.8) k/uL Monocytes # (0-1.0) k/uL Eosinophils # (0-0.7) k/uL Basophils # (0-0.2) k/uL PT (9.0-12.0) sec INR (<1.2) APTT (22.0-30.0) sec Sodium (137-145) mmol/L Potassium (3.5-5.1) mmol/L Chloride (98-107) mmol/L Carbon Dioxide (22-30) mmol/L Anion Gap mmol/L BUN (7-17) mg/dL Creatinine (0.52-1.04) mg/dL Est GFR (CKD-EPI)AfAm (>60 ml/min/1.73 sqM) Est GFR (CKD-EPI)NonAf (>60 ml/min/1.73 sqM) Glucose (74-99) mg/dL Calcium (8.4-10.2) mg/dL Total Bilirubin (0.2-1.3) mg/dL AST (14-36) U/L ALT (4-34) U/L Alkaline Phosphatase (38-126) U/L Troponin I <0.012 (0.000-0.034) ng/mL NT-Pro-B Natriuret Pep 32 pg/mL Total Protein (6.3-8.2) g/dL Albumin (3.5-5.0) g/dL Urine Color Urine Appearance (Clear) Urine pH (5.0-8.0) Ur Specific [place] (1.001-1.035) Urine Protein (Negative) Urine Glucose (UA) (Negative) Urine Ketones (Negative) Urine Blood (Negative) Urine Nitrite (Negative) Urine Bilirubin (Negative) Urine Urobilinogen (<2.0) mg/dL Ur Leukocyte Esterase (Negative) Urine RBC (0-5) /hpf Urine WBC (0-5) /hpf Ur Squamous Epith Cells (0-4) /hpf Urine Bacteria (None) /hpf Coronavirus (PCR) Not Detected (Not Detectd) 04/24/21 Range/Units 18:24 WBC (3.8-10.6) k/uL RBC (3.80-5.40) m/uL Hgb (11.4-16.0) gm/dL Hct (34.0-46.0) % MCV (80.0-100.0) fL MCH (25.0-35.0) pg MCHC (31.0-37.0) g/dL RDW (11.5-15.5) % Plt Count (150-450) k/uL MPV Neutrophils % % Lymphocytes % % Monocytes % % Eosinophils % % Basophils % % Neutrophils # (1.3-7.7) k/uL Lymphocytes # (1.0-4.8) k/uL Monocytes # (0-1.0) k/uL Eosinophils # (0-0.7) k/uL Basophils # (0-0.2) k/uL PT (9.0-12.0) sec INR (<1.2) APTT (22.0-30.0) sec Sodium (137-145) mmol/L Potassium (3.5-5.1) mmol/L Chloride (98-107) mmol/L Carbon Dioxide (22-30) mmol/L Anion Gap mmol/L BUN (7-17) mg/dL Creatinine (0.52-1.04) mg/dL Est GFR (CKD-EPI)AfAm (>60 ml/min/1.73 sqM) Est GFR (CKD-EPI)NonAf (>60 ml/min/1.73 sqM) Glucose (74-99) mg/dL Calcium (8.4-10.2) mg/dL Total Bilirubin (0.2-1.3) mg/dL AST (14-36) U/L ALT (4-34) U/L Alkaline Phosphatase (38-126) U/L Troponin I (0.000-0.034) ng/mL NT-Pro-B Natriuret Pep pg/mL Total Protein (6.3-8.2) g/dL Albumin (3.5-5.0) g/dL Urine Color Yellow Urine Appearance Cloudy H (Clear) Urine pH 5.5 (5.0-8.0) Ur Specific [place] 1.018 (1.001-1.035) Urine Protein Negative (Negative) Urine Glucose (UA) Negative (Negative) Urine Ketones Negative (Negative) Urine Blood Small H (Negative) Urine Nitrite Negative (Negative) Urine Bilirubin Negative (Negative) Urine Urobilinogen <2.0 (<2.0) mg/dL Ur Leukocyte Esterase Large H (Negative) Urine RBC 2 (0-5) /hpf Urine WBC 4 (0-5) /hpf Ur Squamous Epith Cells 6 H (0-4) /hpf Urine Bacteria Rare H (None) /hpf Coronavirus (PCR) (Not Detectd) - Radiology Data Radiology results: report reviewed (Chest x-ray: Chronic changes without acute pulmonary process.) Disposition Clinical Impression: Upper respiratory tract infection Disposition: HOME SELF-CARE Condition: Stable Instructions (If sedation given, give patient instructions): Upper Respiratory Infection (ED) Additional Instructions: Return to the ER immediately should you develop new or worsening pain, increased shortness of breath, a high fever, feeling dizzy or faint, or new or worsening symptoms. Follow up closely with your primary care provider. Is patient prescribed a controlled substance at d/c from ED?: No Referrals: Rudolph Walden III, MD [Primary Care Provider] - 1-2 days Time of Disposition: 19:36
[2021-04-24 16:26] VITALS: RESP 18
[2021-04-24 16:26] LABS: Basophils % (A) 0 %; Eosinophils # (A) 0.1 k/uL (0-0.7); Eosinophils % (A) 0 %; HCT 39.5 % (34.0-46.0); HGB 12.8 gm/dL (11.4-16.0); Lymphocytes # (A) 1.2 k/uL (1.0-4.8); Lymphocytes % (A) 8 %; MCH 26.9 pg (25.0-35.0); MCHC 32.5 g/dL (31.0-37.0); MCV 82.9 fL (80.0-100.0); Mean Platelet Volume 7.3; Monocytes # (A) 0.8 k/uL (0-1.0); Monocytes % (A) 5 %; Neutrophils # (A) 13.5 k/uL (1.3-7.7); Neutrophils % (A) 86 %; Platelet Count 316 k/uL (150-450); RBC 4.77 m/uL (3.80-5.40); WBC 15.7 k/uL (3.8-10.6)
[2021-04-24 16:31] LABS: INR 0.9 (<1.2); Partial Thromboplastin Time 23.8 sec (22.0-30.0); Prothrombin Time 10.1 sec (9.0-12.0)
[2021-04-24 16:34] LABS: ALT 20 U/L (4-34); AST 24 U/L (14-36); African American GFR (CKD) >90 (>60 ml/min/1.73 sqM); Albumin 3.8 g/dL (3.5-5.0); Alkaline Phosphatase 96 U/L (38-126); Anion Gap 11 mmol/L; Blood Urea Nitrogen 26 mg/dL (7-17); Calcium 8.6 mg/dL (8.4-10.2); Carbon Dioxide 21 mmol/L (22-30); Chloride 104 mmol/L (98-107); Glucose 126 mg/dL (74-99); Non-African American GFR(CKD) 79 (>60 ml/min/1.73 sqM); Potassium 4.2 mmol/L (3.5-5.1); Sodium 136 mmol/L (137-145); Total Bilirubin 0.8 mg/dL (0.2-1.3); Total Protein 6.9 g/dL (6.3-8.2)
--- NOTE | 2021-04-24 16:35 | XR ---
EXAMINATION TYPE: XR chest 2V DATE OF EXAM: 04/24/2021 COMPARISON: Chest x-ray March 09, 2021 HISTORY: Fever and chest pain. Shortness of breath. TECHNIQUE: Frontal and lateral views of the chest are obtained. FINDINGS: There is no suspicious new focal air space opacity, pleural effusion, or pneumothorax seen . The cardiac silhouette size is stable and upper limits of normal. Overlying EKG leads. An azygos lobe/fissure redemonstrated along with mild chronic parenchymal changes. The osseous structures are i ntact. IMPRESSION: Chronic changes without acute pulmonary process.
[2021-04-24 18:41] LABS: Appearance,Urine Cloudy (Clear); Bacteria,Urine Rare /hpf; Bilirubin,Urine Negative (Negative); Blood,Urine Small (Negative); Color,Urine Yellow; Glucose,Urine (UA) Negative (Negative); Ketones,Urine Negative (Negative); Leukocyte Esterase,Urine Large (Negative); Nitrite,Urine Negative (Negative); PH, Urine 5.5 (5.0-8.0); Protein,Urine Negative (Negative); RBC,Urine 2 /hpf (0-5); Specific Gravity,Urine 1.018 (1.001-1.035); Squamous Epithelial Cell,Urine 6 /hpf (0-4); Urobilinogen,Urine <2.0 mg/dL (<2.0); WBC,Urine 4 /hpf (0-5)
[2021-04-24 19:01] VITALS: BP 136/70
[2021-04-24 20:01] VITALS: PULSE 100; TEMP 98.7
== END 2021-04-24 19:50 | disposition home or self-care (01) ==
LOC: EC 14:59
DX: R09.81 Nasal congestion (principal); J06.9 Acute upper respiratory infection, unspecified; J45.909 Unspecified asthma, uncomplicated; I10 Essential (primary) hypertension; K21.9 Gastro-esophageal reflux disease without esophagitis; Z79.51 Long term (current) use of inhaled steroids; Z79.899 Other long term (current) drug therapy; Z20.822 Contact with and (suspected) exposure to COVID-19
CPT/HCPCS: 36415; 71046; 80053; 81001; 83880; 84484; 85025; 85610; 85730; 87635; 93005; 99285

== ENCOUNTER 2022-06-15 11:09 | Emergency (ER) | payer BC ==
--- NOTE | 2022-06-15 11:51 | ED ---
Chest Pain HPI - History of Present Illness MD Complaint: chest pain Other Symptoms: cough, other (chest pain) <Mai Santana - Last Filed: 06/15/22 11:47> <Alpa Wagner - Last Filed: 06/15/22 16:48> - General Chief Complaint: Chest Pain Stated Complaint: Chest pain - History of Present Illness Initial Comments: This is a 61 year old female who presents to the emergency department for chest pain and shortness of breath. She saw her PCP in April for coughing and congestion. She was given antibiotics and steroids and followed up with Dr. Clayton, pulmonology 2 weeks later. She was prescribed antibiotics and steroids again from him. She finished those medicines on . Those medications were somewhat helpful. After New years, she started having worsening shortness of breath. Feels like she cannot catch her breath. Shortness of breath is worse with exertion. She used her updraft this morning which was only mildly helpful. This morning she started to develop chest pain. (Mai Santana) Patient describes chest pain as soreness only with coughing. (Alpa Wagner) - Related Data Home Medications Medication Instructions Recorded Confirmed Omeprazole 20 mg PO BID 09/14/18 06/15/22 Fluticasone Propion/Salmeterol 1 puff INHALATION RT-BID 08/06/20 06/15/22 [Wixela 500-50 Inhub] Ipratropium-Albuterol Nebulize 3 ml INHALATION RT-QID PRN 08/06/20 06/15/22 [Duoneb 0.5 mg-3 mg/3 ml Soln] Losartan [Cozaar] 50 mg PO HS 08/06/20 06/15/22 Albuterol Inhaler [Ventolin Hfa 2 puff INHALATION RT-QID PRN 06/15/22 06/15/22 Inhaler] Montelukast [Singulair] 10 mg PO HS 06/15/22 06/15/22 Allergies Allergy/AdvReac Type Severity Reaction Status Date / Time No Known Allergies Allergy Verified 06/15/22 14:13 Review of Systems ROS Other: All systems not noted in ROS Statement are negative. <Mai Santana - Last Filed: 06/15/22 11:47> ROS Other: All systems not noted in ROS Statement are negative. <Alpa Wagner - Last Filed: 06/15/22 16:48> ROS Statement: Those systems with pertinent positive or pertinent negative responses have been documented in the HPI. Past Medical History Past Medical History: Asthma, GERD/Reflux, Hypertension Additional Past Medical History / Comment(s): dysphagia History of Any Multi-Drug Resistant Organisms: None Reported Past Surgical History: Breast Surgery Additional Past Surgical History / Comment(s): breast biopsy,EGD for dilatation Past Anesthesia/Blood Transfusion Reactions: No Reported Reaction Additional Past Anesthesia/Blood Transfusion Reaction / Comment(s): no hx blood transfusion Past Psychological History: No Psychological Hx Reported Smoking Status: Never smoker Past Alcohol Use History: Occasional Past Drug Use History: None Reported - Past Family History Mother Family Medical History: No Reported History Additional Family Medical History / Comment(s): UTIs. Mother is . Father Family Medical History: Cancer Additional Family Medical History / Comment(s): Leukemia. <Mai Santana - Last Filed: 06/15/22 11:47> General Exam General appearance: alert, in no apparent distress Head exam: Present: atraumatic, normocephalic, normal inspection Respiratory exam: Present: normal lung sounds bilaterally. Absent: respiratory distress, wheezes, rales, rhonchi, stridor Cardiovascular Exam: Present: regular rate, normal rhythm, normal heart sounds. Absent: systolic murmur, diastolic murmur, rubs, gallop, clicks Extremities exam: Present: normal inspection Neurological exam: Present: alert, oriented X3, CN II-XII intact Psychiatric exam: Present: normal affect, normal mood Skin exam: Present: warm, dry, intact, normal color. Absent: rash <Alpa Wagner - Last Filed: 06/15/22 16:48> Course Vital Signs 06/15/22 06/15/22 06/15/22 11:44 12:40 12:42 Temperature 98 F Pulse Rate 103 H 97 Respiratory 18 20 17 Rate Blood Pressure 152/88 149/79 O2 Sat by Pulse 98 Oximetry 06/15/22 06/15/22 06/15/22 13:49 15:24 16:41 Temperature 98.9 F Pulse Rate 96 102 H 109 H Respiratory 18 20 18 Rate Blood Pressure 149/83 152/90 143/88 O2 Sat by Pulse 98 96 Oximetry Chest Pain MDM <Alpa Wagner - Last Filed: 06/15/22 16:48> - MDM Was pt. sent in by a medical professional or institution (MICKY Hoover, COMMERCIAL DIVER, urgent care, hospital, or fpc...) When possible be specific @ -[No] Did you speak to anyone other than the patient for history (EMS, parent, family, police, friend...)? What history was obtained from this source @ -[No] Did you review nursing and triage notes (agree or disagree)? Why? @ -[I reviewed and agree with nursing and triage notes] Were old charts reviewed (outside hosp., previous admission, EMS record, old EKG, old radiological studies, urgent care reports/EKG's, fpc records)? Report findings @ -[No old charts were reviewed] Differential Diagnosis (chest pain, altered mental status, abdominal pain women, abdominal pain men, vaginal bleeding, weakness, fever, dyspnea, syncope, headache, dizziness, GI bleed, back pain, seizure, CVA, palpatations, mental health)? @Differential Dyspnea: Coronary syndrome, arrhythmia, tamponade, asthma, COPD, pulmonary embolism, pneumonia, pneumothorax, pulmonary effusion, anaphylaxis, diabetic ketoacidosis, flailed chest, pulmonary contusion, diaphragmatic rupture, anemia, neuromuscular, this is not meant to be an all-inclusive list. EKG interpreted by me (3pts min.). @ -Yes, sinus rhythm with no ST segment or T-wave abnormality. Ventricular rate 96, AR interval 128, QRS duration 94, QTc 412 X-rays interpreted by me (1pt min.). @ -Yes, chest x-ray shows chronic interstitial lung disease vs bronchitis vs interstitial pneumonitis CT interpreted by me (1pt min.). @ -[None done] U/S interpreted by me (1pt. min.). @ -[None done] What testing was considered but not performed or refused? (CT, X-rays, U/S, labs)? Why? @ -[None] What meds were considered but not given or refused? Why? @ -[None] Did you discuss the management of the patient with other professionals (professionals i.e. MICKY Hoover, COMMERCIAL DIVER, lab, RT, psych nurse, high school social studies teacher, appellate law clerk, teacher, police booking officer, case management director)? Give summary @ -[No] Was smoking cessation discussed for >3mins.? @ -[No] Was critical care preformed (if so, how long)? @ -[No] Were there social determinants of health that impacted care today? How? (Homelessness, low income, unemployed, alcoholism, drug addiction, transportation, low edu. Level, literacy, decrease access to med. care, penitentiary, rehab)? @ -[No] Was there de-escalation of care discussed even if they declined (Discuss DNR or withdrawal of care, Hospice)? DNR status @ -[No] What co-morbidities impacted this encounter? (DM, HTN, Smoking, COPD, CAD, Cancer, CVA, ARF, Chemo, Hep., AIDS, mental health diagnosis, sleep apnea, morbid obesity)? @ -[None] Was patient admitted / discharged? Hospital course, mention meds given and rou te, prescriptions, significant lab abnormalities, going to OR and other pertinent info. @ -This is a 61-year-old female presenting for evaluation of cough and shortness of breath. Afebrile, no hypoxia, no tachycardia. Patient resting comfortably, no evidence of respiratory distress. No abnormal lung sounds. EKG unremarkable. Chest X-ray is concerning for chronic interstitial lung disease versus bronchitis versus interstitial pneumonitis. D-dimer elevated at 2.16. CT angio the chest negative for PE. Patient will be discharged with instruction to follow-up with Dr. Clayton. Undiagnosed new problem with uncertain prognosis? @ -[No] Drug Therapy requiring intensive monitoring for toxicity (Heparin, Nitro, Insulin, Cardizem)? @ -[No] Were any procedures done? @ -[No] Diagnosis/symptom? @ -SOB, cough Acute, or Chronic, or Acute on Chronic? @ -acute Uncomplicated (without systemic symptoms) or Complicated (systemic symptoms)? @ -uncomplicated Side effects of treatment? @ -[No] Exacerbation, Progression, or Severe Exacerbation? @ -[No] Poses a threat to life or bodily function? How? (Chest pain, [place], [place], pneumonia, PE, COPD, DKA, ARF, appy, cholecystitis, CVA, Diverticulitis, Homicidal, Suicidal, threat to staff... and all critical care pts) @ -[No] Dr. Fofana is my attending (Alpa Wagner) Disposition <Mai Santana - Last Filed: 06/15/22 11:47> Is patient prescribed a controlled substance at d/c from ED?: No <Alpa Wagner - Last Filed: 06/15/22 16:48> Clinical Impression: Shortness of breath, Cough Disposition: HOME SELF-CARE Instructions (If sedation given, give patient instructions): Chronic Lung Disease and Infection Prevention (ED) Additional Instructions: Take medication as directed. Please follow up with Dr. Clayton in one to 2 days. Return to the emergency department experience new, concerning, or worsening symptoms. Referrals: Avery Interiano MD [Primary Care Provider] - 1-2 days
[2022-06-15] MEDS ORDERED: methylPREDNISolone SOD SUCCI 125 MG/2 ML VIAL IV STA (12:05)
[2022-06-15 12:54] LABS: ALT 29 U/L (4-34); AST 33 U/L (14-36); African American GFR (CKD) >90 (>60 ml/min/1.73 sqM); Albumin 3.7 g/dL (3.5-5.0); Alkaline Phosphatase 99 U/L (38-126); Anion Gap 5 mmol/L; Blood Urea Nitrogen 22 mg/dL (7-17); Calcium 8.4 mg/dL (8.4-10.2); Carbon Dioxide 26 mmol/L (22-30); Chloride 108 mmol/L (98-107); Glucose 111 mg/dL (74-99); Magnesium 1.9 mg/dL (1.6-2.3); Non-African American GFR(CKD) >90 (>60 ml/min/1.73 sqM); Sodium 139 mmol/L (137-145); Total Bilirubin 0.6 mg/dL (0.2-1.3); Total Protein 6.8 g/dL (6.3-8.2)
[2022-06-15 12:59] LABS: Potassium 5.1 mmol/L (3.5-5.1)
--- NOTE | 2022-06-15 13:03 | XR ---
EXAMINATION TYPE: XR chest 2V DATE OF EXAM: 06/15/2022 COMPARISON: 04/24/2021 TECHNIQUE: PA and lateral views submitted. HISTORY: Cough FINDINGS: The lungs are clear and there is no pneumothorax, pleural effusion, or focal pneumonia. Heart size normal and no overt failure. Osseous structures demonstrate hypertrophic and degenerative changes of the spine. Central interstitium with cardiomegaly. Hypertrophic and degenerative changes of the spine . IMPRESSION: 1. Correlate for chronic interstitial lung disease, bronchitis or interstitial pneumonitis.
[2022-06-15 13:05] LABS: INR 0.9 (<1.2); Prothrombin Time 9.7 sec (9.0-12.0)
[2022-06-15 13:14] LABS: Partial Thromboplastin Time 19.7 sec (22.0-30.0)
[2022-06-15 14:06] LABS: Basophils % (A) 1 %; Eosinophils # (A) 0.4 k/uL (0-0.7); Eosinophils % (A) 7 %; HCT 36.9 % (34.0-46.0); HGB 11.6 gm/dL (11.4-16.0); Lymphocytes % (A) 18 %; MCH 25.2 pg (25.0-35.0); MCHC 31.5 g/dL (31.0-37.0); MCV 80.2 fL (80.0-100.0); Mean Platelet Volume 6.7; Monocytes # (A) 0.3 k/uL (0-1.0); Monocytes % (A) 6 %; Neutrophils # (A) 3.6 k/uL (1.3-7.7); Neutrophils % (A) 66 %; Platelet Count 410 k/uL (150-450); WBC 5.4 k/uL (3.8-10.6)
[2022-06-15 16:41] VITALS: BP 143/88; PULSE 109; RESP 18
--- NOTE | 2022-06-15 16:45 | CT ---
CT CHEST FOR PULMONARY EMBOLISM. EXAMINATION TYPE: CT chest angio for PE DATE OF EXAM: 06/15/2022 INDICATION: SOB, elevated dimer and cough CT DLP: 1578.3 combined mGycm, Automated exposure control for dose reduction was used. CONTRAST: Patient injected with 167 mL of Isovue 370. COMPARISON: 02/07/2019 TECHNIQUE: CT of the chest is performed on a spiral scan at 2 mm thick sections. Study is performed with intravenous contrast timed for evaluation for pulmonary embolism. This will limit additional po rtions of the evaluation. 3-D MIP images reconstructed by the technologist are reviewed on the compu ter in the coronal and sagittal planes. FINDINGS: No persistent filling defects are evident to suggest an acute pulmonary embolism. Contrast timing how ever suboptimal with greater contrast within the aorta than within the pulmonary vessels causing some limitation. Smaller peripheral pulmonary emboli may not be visualized. No mediastinal or hilar adenopathy enlarged by CT criteria is evident. The ascending aorta diameter at the level of the main pulmonary artery is 3.1 cm. The main pulmonary artery diameter at the bifur cation is 2.8 cm. Tiny calcification may be within the medial right middle lobe series 406 image 81. Lung windows are o therwise clear. There is a moderate size hiatal hernia present. Note is made of an azygos lobe with t he azygos vein evident. Limited CT section through the upper abdomen are unremarkable. IMPRESSIONS: 1. No acute pulmonary embolism. There is some limitation due to contrast timing.
[2022-06-15 16:59] VITALS: TEMP 98.4
== END 2022-06-15 17:03 | disposition home or self-care (01) ==
LOC: EC 11:09
DX: R06.02 Shortness of breath (principal); R05.9 Cough, unspecified; I10 Essential (primary) hypertension; J45.909 Unspecified asthma, uncomplicated; K21.9 Gastro-esophageal reflux disease without esophagitis; Z79.899 Other long term (current) drug therapy; Z20.822 Contact with and (suspected) exposure to COVID-19
CPT/HCPCS: 36415; 93005; 85379; 83880; 80053; 83735; 84484; 85025; 85610; 85730; 87636; 71046; 71275; 99285; 96374; J2930; Q9967

== ENCOUNTER → 2022-08-13 | Outpatient (CLI) | payer BC ==
[2022-08-14 00:40] LABS: Alternaria alternata IgE <0.10 kU/L; Aspergillus fumagatus IgE <0.10 kU/L; Birch IgE <0.10 kU/L; Cladosporian herbarum IgE <0.10 kU/L; Clam IgE <0.10 kU/L; Cockroach IgE <0.10 kU/L; Codfish IgE <0.10 kU/L; Dog Dander IgE 0.17 kU/L; Elm IgE <0.10 kU/L; Maple (Box Elder) IgE <0.10 kU/L; Oak IgE <0.10 kU/L; Peanut IgE <0.10 kU/L; Ragweed,Common IgE <0.10 kU/L; Scallop IgE <0.10 kU/L; Shrimp IgE <0.10 kU/L; Soybean IgE <0.10 kU/L; Walnut IgE (Food) <0.10 kU/L
[2022-08-14 03:51] LABS: Dermato. farinae IgE <0.10 kU/L
== END | disposition home or self-care (01) ==
LOC: LABWHC1 13:45
PROVIDERS: ATTEND Internal Medicine Critical Care Medicine
DX: J45.909 Unspecified asthma, uncomplicated (principal); R05.9 Cough, unspecified
CPT/HCPCS: 36415; 82785; 85008; 86003

== ENCOUNTER 2022-08-19 11:46 | Day surgery (SDC) | payer BC ==
[~2022-08-19 11:46] MED LIST changes: +ATROPINE SULFATE 0.4 MG/ML 1 ML VIAL IM ONE; -LIDOCAINE 1% (10MG/ML) FOR IV START INTRADERMA PRN
[2022-08-19] MEDS ORDERED: LIDOCAINE 1% (10MG/ML) FOR IV START INTRADERMA PRN (11:52)
[2022-08-19] MEDS ORDERED: LACTATED RINGERS 1,000 ML IV SCH (11:52)
[2022-08-19 12:15] VITALS: TEMP 98.3
[2022-08-19] MEDS ORDERED: LIDOCAINE 2% INJ 20 MG/ML (2 ML VIAL) ONE (12:29)
[2022-08-19] MEDS ORDERED: PROPOFOL 10 MG/ML 20 ML VIAL IV ONE (12:29)
[2022-08-19] MEDS ORDERED: LIDOCAINE 2% INJ 20 MG/ML INTRATRACH ONE (12:42)
[2022-08-19 13:11] VITALS: BP 127/69; PULSE 102; RESP 16
--- NOTE | 2022-08-19 13:12 | PCN ---
PROCEDURE NOTE This is a pulmonary/critical care procedure note. PROCEDURES PERFORMED: Bronchoscopy, airway examination, therapeutic lavage, BAL, right middle lobe. PREOPERATIVE DIAGNOSES: Chronic cough and retained secretions. POSTOPERATIVE DIAGNOSES: Chronic cough and retained secretions. OPERATORS: Dr. Clayton and Dr. Perkins. The patient's procedure took place in room #1. There was informed consent and universal timeout. ANESTHESIA PROVIDED: General anesthesia. DESCRIPTION OF PROCEDURE: After the patient was adequately sedated and being fully monitored, the bronchoscope was inserted through the right nostril. It passed through the right nasopharynx into the oropharynx. The hypopharynx was identified and topicalized. The structures including anterior commissure, true cords, false cords, arytenoids, piriform sinuses, right and left, vallecula, and epiglottis, all appeared normal. The glottic opening was topicalized. The trachea appeared relatively normal. Tracheal thi was sharp. The right and left mainstem were topicalized. The right upper lobe and its 3 segments, right middle lobe and its 2 segments, right lower lobe and its 5 segments, left upper lobe proper and its 2 segments, lingula and its 2 segments, and left lower lobe and its 4 segments, all had similar findings of diffuse airway erythema. It was mild to moderate in severity. There were thin secretions noted throughout. There was no dominant mass or tumor. The patient coughed frequently during the procedure. The bronchoscope was wedged into the right middle lobe. The BAL took place. 30 mL of fluid was recovered. There was no immediate complication. The bronchoscope was withdrawn. The patient will be recovered. I did speak to the patient's daughter after the procedure, [place], and gave her an update. The fluid as mentioned above will be sent to the laboratory for analysis. MMODL / IJN: [id number] /
[2022-08-20 11:08] LABS: Appearance,BF Slightly Hazy
== END 2022-08-19 13:36 | disposition home or self-care (01) ==
LOC: ORWHC2ENDO 11:46
PROVIDERS: ATTEND Internal Medicine Critical Care Medicine
DX: J98.4 Other disorders of lung (principal); J44.9 Chronic obstructive pulmonary disease, unspecified; J45.909 Unspecified asthma, uncomplicated; I10 Essential (primary) hypertension; K21.9 Gastro-esophageal reflux disease without esophagitis; Z79.899 Other long term (current) drug therapy; Z79.51 Long term (current) use of inhaled steroids; Z91.018 Allergy to other foods; Z91.048 Other nonmedicinal substance allergy status; E66.01 Morbid (severe) obesity due to excess calories; Z68.42 Body mass index [BMI] 45.0-49.9, adult; Z83.2 Family history of diseases of the blood and blood-forming organs and certain disorders involving the immune mechanism; Z83.49 Family history of other endocrine, nutritional and metabolic diseases; Z98.890 Other specified postprocedural states
CPT/HCPCS: 88108; 88305; 89050; 31624; J2001 ×2; J2704

== ENCOUNTER → 2022-10-15 | Outpatient (CLI) | payer BC ==
--- NOTE | 2022-10-16 07:36 | MM ---
Reason for Exam: Screening (asymptomatic). Last mammogram was performed 2 year(s) and 7 month(s) ago. Patient History: Menarche at age 10. First Full-Term at age 22. Postmenopausal. Patient has history of breast feeding. 04/08/2012, Benign Core Biopsy on the right side. 04/01/1998, Benign Excisional Biopsy on the left side. Paternal grandmother had breast cancer. Paternal aunt had breast cancer, age 65. Risk Values: Daniela 5 year model risk: 2.2%. NCI Lifetime model risk: 8.6%. Prior Study Comparison: 03/22/2012 Right Diagnostic Ultrasound, [facility]. 08/26/2015 Bilateral Screening Mammogram, [facility]. 12/16/2016 Bilateral Screening Mammogram, [facility]. 03/04/2020 Bilateral Screening Mammogram, [facility]. Tissue Density: There are scattered fibroglandular densities. Findings: Analyzed By CAD. A few tiny benign-appearing round calcifications in the left breast are redemonstrated. Mammotome biopsy clip in the right breast is again seen. There are stable circumscribed tiny round masses in the bilateral breasts. There is no suspicious group of microcalcifications or new suspicious or enlarging mass in either breast. Overall Assessment: Benign, BI-RAD 2 Management: Screening Mammogram of both breasts in 1 year. . Patient should continue monthly self-breast exams. A clinical breast exam by your physician is recommended on an annual basis. This exam should not preclude additional follow-up of suspicious palpable abnormalities. Note on Daniela scores and lifetime risk: 1. A Daniela score greater than 3% is considered moderate risk. If this is the case, consider specialist referral to assess eligibility for a risk reducing agent. 2. If overall lifetime risk for the development of breast cancer is 20% or higher, the patient may qualify for future screening with alternating mammogram and breast MRI. Electronically signed and approved by: Amrit Lai M.D.
== END | disposition home or self-care (01) ==
LOC: RADMAMWWP 11:20
PROVIDERS: ATTEND Family Medicine
DX: Z12.31 Encounter for screening mammogram for malignant neoplasm of breast (principal); Z78.0 Asymptomatic menopausal state; Z80.3 Family history of malignant neoplasm of breast
CPT/HCPCS: 77067

== ENCOUNTER → 2023-08-12 | Outpatient (CLI) | payer OTHER ==
--- NOTE | 2023-08-14 17:11 | MR ---
EXAMINATION TYPE: MR knee LT wo con DATE OF EXAM: 08/12/2023 COMPARISON: No radiographic correlation available HISTORY: 62-year-old female M2 5.562, left knee pain. TECHNIQUE: Multiplanar, multisequence imaging of the left knee is performed without IV contrast. FINDINGS: The ACL is diminutive and not well seen. There are some intact fibers identified on the coronal serie s. Deficiency especially at the tibial insertion. PCL is intact. MCL is intact. There is heterogeneous increased signal at the femoral attachment of the LCL proper. LCL complex is o therwise intact. The posterior horn of the medial meniscus is macerated and torn. The body is extruded and contains mu ltidirectional tear is. Moderate to severe cartilage and joint loss along the mid weightbearing aspec t of the medial compartment. There is an oblique tear involving the junction of the anterior horn and body of the lateral meniscus and degenerative signal seen scattered throughout portions of the lateral meniscal body and posterio r horn. Prominent marginal spurring is present. No focal high-grade cartilage loss is seen in the la teral compartment. Patellofemoral compartment shows lateral patellar translation with full-thickness cartilage loss and [id number] abutment along the lateral facets with reactive subchondral cystic change. TT-TG distanc e is 1.8 cm. Marginal spurring is present in the patellofemoral compartment. Extensor mechanism is intact. Areas of linear increased signal within the quadriceps insertion and in termediate signal intensity distal third patellar tendon. Findings suggest tendinosis. Small knee joint effusion with trace Bartlett's cyst. Generalized soft tissue swelling. Normal popliteal artery anatomy and muscle bulk. No suspicious bone marrow replacement. IMPRESSION: 1. Diminutive, suspected partially torn ACL. 2. Grade 1 sprain at the femoral attachment of the LCL proper. 3. Macerated and torn posterior horn of the medial meniscus. The meniscal body also shows multiple te ars and is extruded. Moderate to severe cartilage loss along the mid weightbearing aspect of the medi al compartment. 4. Oblique tear at the junction of the anterior horn and body of the lateral meniscus and scattered d egenerative signal throughout the remainder of the lateral meniscus. 5. Lateral patellar translation with severe, [id number] patellofemoral compartmental OA particularl y along the lateral facets. 6. Quadriceps and patellar insertional tendinosis.
== END | disposition home or self-care (01) ==
LOC: RADMRIMAIN 12:03
PROVIDERS: ATTEND Family Medicine
DX: M17.12 Unilateral primary osteoarthritis, left knee (principal)

== ENCOUNTER → 2023-10-18 | Outpatient (CLI) | payer BC, OTHER ==
--- NOTE | 2023-10-25 15:10 | MM ---
Reason for Exam: Screening (asymptomatic). Last screening mammogram was performed 12 month(s) ago. Patient History: Menarche at age 10. First Full-Term at age 22. Postmenopausal. Patient has history of breast feeding. 04/08/2012, Benign Core Biopsy on the right side. 04/01/1998, Benign Excisional Biopsy on the left side. Paternal grandmother had breast cancer. Paternal aunt had breast cancer, age 65. Risk Values: Daniela 5 year model risk: 2.2%. NCI Lifetime model risk: 8.3%. Prior Study Comparison: 12/16/2016 Bilateral Screening Mammogram, [facility]. 03/04/2020 Bilateral Screening Mammogram, [facility]. 10/15/2022 Bilateral MG screening mammo w CAD, [facility]. Tissue Density: There are scattered areas of fibroglandular density. Findings: Analyzed By CAD. The pattern is symmetrical. No significant interval changes are evident. Scattered benign punctate calcifications are within the left breast. Some underlying chronic nodularity may be within the right breast. No suspicious groups of microcalcifications, spiculated or lobular masses, architectural distortion or other secondary signs of malignancy are mammographically apparent. Overall Assessment: Benign, BI-RAD 2 Management: Screening Mammogram of both breasts in 1 year. A negative mammogram report should not preclude additional follow up of suspicious palpable abnormalities. Patient should continue monthly self breast exam. A clinical breast exam by your physician is recommended on an annual basis and results should be correlated with mammographic findings. Note on Daniela scores and lifetime risk: 1. A Daniela score greater than 3% is considered moderate risk. If this is the case, consider specialist referral to assess eligibility for a risk reducing agent. 2. If overall lifetime risk for the development of breast cancer is 20% or higher, the patient may qualify for future screening with alternating mammogram and breast MRI. Electronically signed and approved by: Jerardo Walker D.O. Radiologis
== END | disposition home or self-care (01) ==
LOC: RADMAMWWP 13:23
PROVIDERS: ATTEND Family Medicine
DX: Z12.31 Encounter for screening mammogram for malignant neoplasm of breast (principal); Z80.3 Family history of malignant neoplasm of breast; Z78.0 Asymptomatic menopausal state
CPT/HCPCS: 77063; 77067

== ENCOUNTER 2024-07-24 09:37 | Emergency (ER) | payer BC, MEDICARE ==
--- NOTE | 2024-07-24 10:26 | ED ---
URI HPI - General Chief Complaint: Upper Respiratory Infection Stated Complaint: cough Time Seen by Provider: 07/24/24 09:55 Source: patient, RN notes reviewed Mode of arrival: ambulatory Limitations: no limitations - History of Present Illness Initial Comments: This is a 63-year-old female with history of asthma presenting for sick symptoms. Endorses fever, body aches, cough with phlegm production, sore throat and diarrhea. Denies recent sick contact. Endorses use of cough lozenges with minimal relief. Denies hemoptysis, dyspnea, chest pain, abdominal pain, nausea/vomiting. MD Complaint: fever, cough, sore throat Onset/Timin -: hour(s) Severity scale (1-10): 10 Consistency: constant Improves With: nothing Worsens With: nothing Associated Symptoms: myalgias, diarrhea Treatments Prior to Arrival: other (Lozenges) - Related Data Home Medications Medication Instructions Recorded Confirmed Omeprazole 20 mg PO BID 09/14/18 08/19/22 Fluticasone Propion/Salmeterol 1 puff INHALATION RT-BID 08/06/20 08/19/22 [Wixela 500-50 Inhub] Ipratropium-Albuterol Nebulize 3 ml INHALATION RT-QID PRN 08/06/20 08/19/22 [Duoneb 0.5 mg-3 mg/3 ml Soln] Losartan [Cozaar] 50 mg PO HS 08/06/20 08/19/22 Albuterol Inhaler [Ventolin Hfa 2 puff INHALATION RT-QID PRN 06/15/22 08/19/22 Inhaler] Montelukast [Singulair] 10 mg PO HS 06/15/22 08/19/22 Famotidine 20 mg PO HS 08/14/22 08/19/22 Previous Rx's Medication Instructions Recorded Albuterol Inhaler [Ventolin Hfa 1 - 2 puff INHALATION Q6H PRN #1 07/24/24 Inhaler] each Azithromycin [Zithromax Z Pack] 0 tab PO DIRECTED #6 tab 07/24/24 predniSONE 50 mg PO DAILY #5 tab 07/24/24 Allergies Allergy/AdvReac Type Severity Reaction Status Date / Time No Known Allergies Allergy Verified 08/19/22 11:59 Review of Systems ROS Statement: Those systems with pertinent positive or pertinent negative responses have been documented in the HPI. ROS Other: All systems not noted in ROS Statement are negative. Past Medical History Past Medical History: Asthma, GERD/Reflux, Hypertension Additional Past Medical History / Comment(s): dysphagia History of Any Multi-Drug Resistant Organisms: None Reported Past Surgical History: Breast Surgery Additional Past Surgical History / Comment(s): breast biopsy,EGD for dilatation, colonoscopy, Past Anesthesia/Blood Transfusion Reactions: No Reported Reaction Additional Past Anesthesia/Blood Transfusion Reaction / Comment(s): no hx blood transfusion Past Psychological History: No Psychological Hx Reported Smoking Status: Never smoker - Past Family History Mother Family Medical History: No Reported History Additional Family Medical History / Comment(s): UTIs. Mother is . Father Family Medical History: Cancer Additional Family Medical History / Comment(s): Leukemia. General Exam Limitations: no limitations General appearance: alert, in no apparent distress Head exam: Present: atraumatic, normocephalic, normal inspection Eye exam: Present: normal appearance, PERRL, EOMI. Absent: scleral icterus, conjunctival injection, periorbital swelling ENT exam: Present: normal exam, normal oropharynx, mucous membranes moist, TM's normal bilaterally Neck exam: Present: normal inspection. Absent: tenderness, meningismus, lymphadenopathy Respiratory exam: Present: wheezes, prolonged expiratory. Absent: respiratory distress, rales, rhonchi, stridor, decreased breath sounds Cardiovascular Exam: Present: regular rate, normal rhythm, normal heart sounds. Absent: systolic murmur, diastolic murmur, rubs, gallop, clicks GI/Abdominal exam: Present: soft, normal bowel sounds. Absent: distended, tenderness, guarding, rebound, rigid Extremities exam: Present: normal inspection, full ROM, normal capillary refill. Absent: tenderness, pedal edema, joint swelling, calf tenderness Back exam: Present: normal inspection Neurological exam: Present: alert, oriented X3, CN II-XII intact Psychiatric exam: Present: normal affect, normal mood Skin exam: Present: warm, dry, intact, normal color. Absent: rash Course Vital Signs 07/24/24 07/24/24 07/24/24 09:53 12:03 12:11 Temperature 98.9 F Pulse Rate 123 H 92 96 Respiratory 20 Rate Blood Pressure 123/80 O2 Sat by Pulse 93 L Oximetry 07/24/24 12:51 Temperature 98.8 F Pulse Rate 106 H Respiratory 18 Rate Blood Pressure 111/63 O2 Sat by Pulse 95 Oximetry Medical Decision Making - Medical Decision Making Was pt. sent in by a medical professional or institution (MICKY Hoover, PHARMACEUTICAL SCIENTIST, urgent care, hospital, or chcf...) When possible be specific @ -No Did you speak to anyone other than the patient for history (EMS, parent, family, police, friend...)? What history was obtained from this source @ -No Did you review nursing and triage notes (agree or disagree)? Why? @ -I reviewed and agree with nursing and triage notes Were old charts reviewed (outside hosp., previous admission, EMS record, old EKG, old radiological studies, urgent care reports/EKG's, [facility] records)? Report findings @ -No old charts were reviewed Differential Diagnosis (chest pain, altered mental status, abdominal pain women, abdominal pain men, vaginal bleeding, weakness, fever, dyspnea, syncope, hea dache, dizziness, GI bleed, back pain, seizure, CVA, palpatations, mental health, musculoskeletal)? @ -Differential Fever: Pneumonia, viral URI, endocarditis, myocarditis, pericarditis, otitis, sinus itis, peritonsillar Abscess, retropharyngeal Abscess, epiglottitis, peritonitis, appendicitis, Helen cystitis, diverticulitis, hepatitis, colitis, UTI, PID, TOA, pyelonephritis, prostatitis, epididymitis, meningitis, encephalitis, pulmonary embolism, CVA, thyroid storm, pancreatitis, adrenal crisis, cavernous sinus thrombosis, this is not meant to be an all-inclusive list. EKG interpreted by me (3pts min.). @ -Not done X-rays interpreted by me (1pt min.). @ -CXR shows new left midlung infiltrate/opacity. CT interpreted by me (1pt min.). @ -None done U/S interpreted by me (1pt. min.). @ -None done What testing was considered but not performed or refused? (CT, X-rays, U/S, labs)? Why? @ -None What meds were considered but not given or refused? Why? @ -None Did you discuss the management of the patient with other professionals (professionals i.e. MICKY Hoover, PHARMACEUTICAL SCIENTIST, lab, RT, psych nurse, delinquency prevention social worker, psychiatric aide instructor, teacher, parole hearing officer, case consultant)? Give summary @ -No Was smoking cessation discussed for >3mins.? @ -No Was critical care preformed (if so, how long)? @ -No Were there social determinants of health that impacted care today? How? (Homelessness, low income, unemployed, alcoholism, drug addiction, transportation, low edu. Level, literacy, decrease access to med. care, prison, rehab)? @ -No Was there de-escalation of care discussed even if they declined (Discuss DNR or withdrawal of care, Hospice)? DNR status @ -No What co-morbidities impacted this encounter? (DM, HTN, Smoking, COPD, CAD, Cancer, CVA, ARF, Chemo, Hep., AIDS, mental health diagnosis, sleep apnea, morbid obesity)? @ -None Was patient admitted / discharged? Hospital course, mention meds given and route, prescriptions, significant lab abnormalities, going to OR and other pertinent info. @ -Lab work shows which shows neutrophilia 9.2, hyperglycemia 126 and elevated BUN 22. Cepheid and strep test negative. CXR shows new left midlung infiltrate/opacity. Patient initially provided DuoNeb and IM Toradol. Upon discovery of pneumonia, IV normal saline and Rocephin provided. IV Solu-Medrol also provided. Patient discharged with azithromycin, prednisone and albuterol inhaler sent to pharmacy. Advised follow-up with PCP in the next 24-[address] Discussed patient with Dr. Grimaldo. Undiagnosed new problem with uncertain prognosis? @ -No Drug Therapy requiring intensive monitoring for toxicity (Heparin, Nitro, Insulin, Cardizem)? @ -No Were any procedures done? @ -No Diagnosis/symptom? @ -Pneumonia Acute, or Chronic, or Acute on Chronic? @ -Acute Uncomplicated (without systemic symptoms) or Complicated (systemic symptoms)? @ -Complicated Side effects of treatment? @ -No Exacerbation, Progression, or Severe Exacerbation? @ -No Poses a threat to life or bodily function? How? (Chest pain, [place], [place], pneumonia, PE, COPD, DKA, ARF, appy, cholecystitis, CVA, Diverticulitis, Homicidal, Suicidal, threat to staff... and all critical care pts) @ -Pneumonia, respiratory failure - Lab Data Result diagrams: 07/24/24 11:42 07/24/24 11:42 Lab Results 07/24/24 07/24/24 07/24/24 Range/Units 10: 10: 11:42 WBC 10.6 (3.8-10.6) k/uL RBC 4.69 (3.80-5.40) m/uL Hgb 13.6 (11.4-16.0) gm/dL Hct 42.2 (34.0-46.0) % MCV 90.1 (80.0-100.0) fL MCH 28.9 (25.0-35.0) pg MCHC 32.1 (31.0-37.0) g/dL RDW 13.0 (11.5-15.5) % Plt Count 311 (150-450) k/uL MPV 6.9 Neutrophils % 87 % Lymphocytes % 7 % Monocytes % 5 % Eosinophils % 0 % Basophils % 0 % Neutrophils # 9.2 H (1.3-7.7) k/uL Lymphocytes # 0.7 L (1.0-4.8) k/uL Monocytes # 0.5 (0-1.0) k/uL Eosinophils # 0.0 (0-0.7) k/uL Basophils # 0.0 (0-0.2) k/uL Sodium (137-145) mmol/L Potassium (3.5-5.1) mmol/L Chloride (98-107) mmol/L Carbon Dioxide (22-30) mmol/L Anion Gap mmol/L BUN (7-17) mg/dL Creatinine (0.52-1.04) mg/dL Est GFR (CKD-EPI)AfAm (>60 ml/min/1.73 sqM) Est GFR (CKD-EPI)NonAf (>60 ml/min/1.73 sqM) Glucose (74-99) mg/dL Calcium (8.4-10.2) mg/dL Total Bilirubin (0.2-1.3) mg/dL AST (14-36) U/L ALT (4-34) U/L Alkaline Phosphatase (38-126) U/L Total Protein (6.3-8.2) g/dL Albumin (3.5-5.0) g/dL Influenza Type A (PCR) Not Detected (Not Detectd) Influenza Type B (PCR) Not Detected (Not Detectd) RSV (PCR) Not Detected (Not Detectd) SARS-CoV-2 (PCR) Not Detected (Not Detectd) Group A Strep (PCR) NOT DETECTED (Not Detectd) 07/24/24 Range/Units 11:42 WBC (3.8-10.6) k/uL RBC (3.80-5.40) m/uL Hgb (11.4-16.0) gm/dL Hct (34.0-46.0) % MCV (80.0-100.0) fL MCH (25.0-35.0) pg MCHC (31.0-37.0) g/dL RDW (11.5-15.5) % Plt Count (150-450) k/uL MPV Neutrophils % % Lymphocytes % % Monocytes % % Eosinophils % % Basophils % % Neutrophils # (1.3-7.7) k/uL Lymphocytes # (1.0-4.8) k/uL Monocytes # (0-1.0) k/uL Eosinophils # (0-0.7) k/uL Basophils # (0-0.2) k/uL Sodium 136 L (137-145) mmol/L Potassium 4.4 (3.5-5.1) mmol/L Chloride 103 (98-107) mmol/L Carbon Dioxide 26 (22-30) mmol/L Anion Gap 7 mmol/L BUN 22 H (7-17) mg/dL Creatinine 0.93 (0.52-1.04) mg/dL Est GFR (CKD-EPI)AfAm 75 (>60 ml/min/1.73 sqM) Est GFR (CKD-EPI)NonAf 65 (>60 ml/min/1.73 sqM) Glucose 126 H (74-99) mg/dL Calcium 8.6 (8.4-10.2) mg/dL Total Bilirubin 0.9 (0.2-1.3) mg/dL AST 20 (14-36) U/L ALT 17 (4-34) U/L Alkaline Phosphatase 115 (38-126) U/L Total Protein 6.6 (6.3-8.2) g/dL Albumin 3.7 (3.5-5.0) g/dL Influenza Type A (PCR) (Not Detectd) Influenza Type B (PCR) (Not Detectd) RSV (PCR) (Not Detectd) SARS-CoV-2 (PCR) (Not Detectd) Group A Strep (PCR) (Not Detectd) Disposition Clinical Impression: Pneumonia Disposition: HOME SELF-CARE Condition: Good Instructions (If sedation given, give patient instructions): Community Acquired Pneumonia (ED) Prescriptions: predniSONE 50 mg PO DAILY #5 tab Albuterol Inhaler [Ventolin Hfa Inhaler] 1 - 2 puff INHALATION Q6H PRN #1 each PRN Reason: Shortness Of Breath Azithromycin [Zithromax Z Pack] 0 tab PO DIRECTED #6 tab Is patient prescribed a controlled substance at d/c from ED?: No Referrals: Avery Interiano MD [Primary Care Provider] - 1-2 days Time of Disposition: 12:25
[2024-07-24] MEDS: KETOROLAC 15 MG/ML 1 ML VIAL IM STA (10:41)
--- NOTE | 2024-07-24 10:47 | XR ---
EXAMINATION TYPE: XR chest 2V DATE OF EXAM: 07/24/2024 10:38 AM COMPARISON: Chest x-ray and CT June 15, 2022 CLINICAL INDICATION: Female, 63 years old with history of Cough, fever, TECHNIQUE: Frontal and lateral views of the chest are obtained. FINDINGS: An azygos lobe/fissure is redemonstrated. There are new opacity within the left midlung. The cardiac silhouette size is within stable and upper limits of normal. The osseous structures are intact. IMPRESSION: New left midlung acute infiltrate and/or atelectasis. [facility], , 07/24/2024 10:45 AM
[2024-07-24 11:08] LABS: Influenza A Not Detected (Not Detectd); Influenza B Not Detected (Not Detectd); RSV Not Detected (Not Detectd)
[2024-07-24] MEDS: SODIUM CHLORIDE 0.9% 500 ML 500 ML IV STA (11:43)
[2024-07-24] MEDS: IPRATROPIUM-ALBUTEROL 3 ML NEB INHALATION STA (12:03)
[2024-07-24 12:06] LABS: ALT 17 U/L (4-34); AST 20 U/L (14-36); African American GFR (CKD) 75 (>60 ml/min/1.73 sqM); Albumin 3.7 g/dL (3.5-5.0); Alkaline Phosphatase 115 U/L (38-126); Anion Gap 7 mmol/L; Blood Urea Nitrogen 22 mg/dL (7-17); Calcium 8.6 mg/dL (8.4-10.2); Carbon Dioxide 26 mmol/L (22-30); Chloride 103 mmol/L (98-107); Glucose 126 mg/dL (74-99); Non-African American GFR(CKD) 65 (>60 ml/min/1.73 sqM); Potassium 4.4 mmol/L (3.5-5.1); Sodium 136 mmol/L (137-145); Total Bilirubin 0.9 mg/dL (0.2-1.3); Total Protein 6.6 g/dL (6.3-8.2)
[2024-07-24 12:07] LABS: Basophils % (A) 0 %; Eosinophils % (A) 0 %; HCT 42.2 % (34.0-46.0); HGB 13.6 gm/dL (11.4-16.0); Lymphocytes # (A) 0.7 k/uL (1.0-4.8); Lymphocytes % (A) 7 %; MCH 28.9 pg (25.0-35.0); MCHC 32.1 g/dL (31.0-37.0); MCV 90.1 fL (80.0-100.0); Mean Platelet Volume 6.9; Monocytes # (A) 0.5 k/uL (0-1.0); Monocytes % (A) 5 %; Neutrophils # (A) 9.2 k/uL (1.3-7.7); Neutrophils % (A) 87 %; Platelet Count 311 k/uL (150-450); RBC 4.69 m/uL (3.80-5.40); WBC 10.6 k/uL (3.8-10.6)
[2024-07-24] MEDS: methylPREDNISolone SOD SUCCI 125 MG/2 ML VIAL IV STA (12:43)
[2024-07-24 12:54] VITALS: BP 111/63; PULSE 106; RESP 18; TEMP 98.8
== END 2024-07-24 12:51 | disposition home or self-care (01) ==
LOC: EC 09:37
DX: J18.9 Pneumonia, unspecified organism (principal)
CPT/HCPCS: 36415; 94640; 87651; 80053; 85025; 87040; 87636; 71046; 99284; 96374; 96372; J0696; J1885; J2919

== ENCOUNTER 2024-08-03 11:38 | Day surgery (SDC) | payer BC ==
[~2024-08-03 11:38] MED LIST changes: -ATROPINE SULFATE 0.4 MG/ML 1 ML VIAL IM ONE
[2024-08-03] MEDS: IV FLUID CONTINUATION 1,000 ML IV ONE (12:01)
[2024-08-03 12:09] VITALS: TEMP 98.7
[2024-08-03] MEDS: LACTATED RINGERS 1,000 ML IV SCH (12:11)
[2024-08-03] MEDS: ATROPINE SULFATE 0.4 MG/ML 1 ML VIAL IM ONE (12:12)
[2024-08-03] MEDS ORDERED: LIDOCAINE 2% (PF) 20 MG/ML 5 ML VIAL ONE (12:48)
[2024-08-03] MEDS ORDERED: PROPOFOL 10 MG/ML 20 ML VIAL IV ONE (12:48)
[2024-08-03 13:24] VITALS: RESP 18
[2024-08-03 13:48] VITALS: BP 129/81; PULSE 109
--- NOTE | 2024-08-03 19:26 | PCN ---
PROCEDURE NOTE PROCEDURES: Bronchoscopy, airway examination, therapeutic lavage, bronchoalveolar lavage. POLITICAL ANTHROPOLOGIST: Dr. Clayton. [employer] CREW SUPERVISOR: Dr. Perlita Perkins. DESCRIPTION OF PROCEDURE: The patient's procedure took place in [facility] room #2. There was informed consent and universal timeout. Anesthesia provided monitored anesthesia care. After the patient was adequately sedated and being fully monitored, the bronchoscope was inserted through the right nostril. It passed through the right nasopharynx into the oropharynx. The hypopharynx was identified and topicalized. The hypopharyngeal structures, including anterior commissure, true cords, false cords, arytenoids, piriform sinuses, right and left; vallecula, and epiglottis, all appeared normal. The glottic opening was topicalized, and the bronchoscope was pushed through the glottic opening into the trachea. The trachea appeared normal. The thi was sharp. The right and left mainstem were topicalized. The right upper lobe and its 3 segments, right middle lobe and its 2 segments, the right lower lobe and its 5 segments, the lingula and its 2 segments, the left upper lobe proper and its 2 segments, the left lower lobe and its 4 segments, all had similar findings of very mild bronchitic changes. There was mild hyperemia and erythema of the airways. There were some secretions noted. There was no dominant mass or tumor. There was no bleeding. The bronchoscope was then wedged into the right middle lobe. We did a formal BAL. 30 mL of turbid fluid was recovered. It will be sent to the laboratory for analysis. There was no immediate complication. The patient tolerated the procedure well. The bronchoscope was withdrawn and the patient will be recovered. MMODL / IJN: [id number] /
[2024-08-04 17:24] LABS: Appearance,BF Cloudy (Clear); RBC, Body Fluid 1400 /UL (0-2000)
[2024-08-07 09:46] LABS: Nucleated Cells, Body Fluid 39 /UL
== END 2024-08-03 14:03 | disposition home or self-care (01) ==
LOC: ORWHC2ENDO 11:38
PROVIDERS: ATTEND Internal Medicine Critical Care Medicine
DX: J45.50 Severe persistent asthma, uncomplicated (principal); I10 Essential (primary) hypertension; K21.9 Gastro-esophageal reflux disease without esophagitis; E66.9 Obesity, unspecified; Z68.42 Body mass index [BMI] 45.0-49.9, adult; Z79.899 Other long term (current) drug therapy; Z87.01 Personal history of pneumonia (recurrent)
CPT/HCPCS: 88108; 88305; 89050; 87070; 87205; 87116; 87102; 87206; 31624; J0461; J2704; J2003; 87496; 87498; 87502; 87529; 87634; 87635; 87798

== ENCOUNTER → 2024-11-30 | Outpatient (CLI) | payer BC ==
[2024-11-30 13:53] VITALS: BP 139/89; PULSE 90; RESP 16; TEMP 98.1
--- NOTE | 2024-11-30 14:16 | P.SLEEP ---
History of Present Illness DATE: 11/30/2024 CONSULTATION/NEW PATIENT EVALUATION HISTORY OF PRESENT ILLNESS/SLEEP-WAKE EVALUATION: 64-year-old lady had been ev aluated in the sleep center for possible obstructive sleep apnea hypopnea syndrome. SLEEP SCHEDULE: Usually sleep schedule from 10:30 AM to 7 AM on working days and from 10 PM to 7 AM on weekend. Patient works at afternoon shift. FALLING ASLEEP: No problems with falling asleep. DURING SLEEP: Patient snores, wakes up from sleep 2 times with nocturia, dry mouth. No history of hypnogogical hallucinations, sleep paralysis, or cataplexy. DURING THE DAY/WAKE STATE: In the morning patient wake up tired, falling asleep during the day. [place] sleepiness scale is 4. PAST MEDICAL HISTORY: Hypertension, asthma, prediabetes, iron deficiency anemia, GERD, eosinophilic esophagitis, allergy to dogs and cats. PAST SURGICAL HISTORY: Foot surgery, colonoscopy, bronchoscopy. MEDICATIONS: Please see below. SOCIAL HISTORY: Please see below, alcohol consumption occasional. FAMILY HISTORY: Please see below. REVIEW OF SYSTEMS: Snoring, multiple awakenings from sleep. No fevers. No double vision. No recent chest pain. No shortness of breath. No abdominal pain. No bleeding episodes. No blood in urine. No seizure episodes. PHYSICAL EXAMINATION: GENERAL: A pleasant patient without any distress. VITAL SIGNS: Please see below, weight 220 pounds, BMI 45. HEENT: PERRLA, EOMI. Evaluation of oropharynx showed tongue protrudes midline, low position of soft palate Mallampati 34. NECK: Supple. No JVD. Thyroid is not palpable. 15 inches in circumference. LUNGS: Clear to percussion and to auscultation. Good air exchange. No wheezing or rhonchi. HEART: S1, S2 regular. No murmurs, gallops or rubs. ABDOMEN: Soft and nontender. Bowel sounds are present. No organomegaly appreciated. EXTREMITIES: No clubbing or cyanosis. FOREIGN CAR MECHANIC: Awake, alert, and oriented x3. Cranial nerves 2 to 7 intact. There is no fasciculation or atrophy noted. No focal deficits observed. ASSESSMENT: 1. Snoring, multiple awakenings from sleep with nocturia, extremely low position of soft palate Mallampati 34. Obstructive sleep apnea hypopnea syndrome. 2. Obesity, BMI 45. 3. Hypertension. 4. Asthma. 5 PreDiabetes mellitus. 6 . Iron deficiency anemia. 7. GERD. 8. Eosinophilic esophagitis. 9 . Allergy to dogs and cats. PLAN: 1. Polysomnography for evaluation of patient's breathing during sleep. 2. Following plan after reading sleep study. 3. Preferable position during sleep on the side. 4. No driving if patient feels any sleepiness. Patient is aware of civil and criminal liability for unsafe driving. 5. Sleep hygiene with regular sleep time for at least 7.5-8 hours. 6. Watching and losing weight. Thank you very much for referring this patient for consultation. Sincerely, Santo Harvey MD, PhD, FAASM. Diplomat of [place] [employer], Sleep Medicine Board by [place] [employer] [place] [employer] Child Nutrition Manager of [facility] [place] cc: Oral Interiano MD Past Medical History Past Medical History: Asthma, GERD/Reflux, Hypertension Additional Past Medical History / Comment(s): dysphagia, pre diabetic History of Any Multi-Drug Resistant Organisms: None Reported Past Surgical History: Breast Surgery Additional Past Surgical History / Comment(s): breast biopsy,EGD for dilatation, colonoscopy, Past Anesthesia/Blood Transfusion Reactions: No Reported Reaction Additional Past Anesthesia/Blood Transfusion Reaction / Comment(s): no hx blood transfusion Past Psychological History: No Psychological Hx Reported Smoking Status: Never smoker Past Alcohol Use History: Occasional Additional Past Alcohol Use History / Comment(s): advised no alcohol 24 hrs prior to proc. Past Drug Use History: None Reported - Past Family History Mother Family Medical History: No Reported History Additional Family Medical History / Comment(s): UTIs. Mother is . Father Family Medical History: Cancer Additional Family Medical History / Comment(s): Leukemia. Medications and Allergies Home Medications Medication Instructions Recorded Confirmed Type Omeprazole 20 mg PO BID 09/14/18 11/30/24 History Fluticasone Propion/Salmeterol 1 puff INHALATION RT-BID 08/06/20 11/30/24 History [Wixela 500-50 Inhub] Ipratropium-Albuterol Nebulize 3 ml INHALATION RT-QID PRN 08/06/20 11/30/24 History [Duoneb 0.5 mg-3 mg/3 ml Soln] Losartan [Cozaar] 50 mg PO HS 08/06/20 11/30/24 History Montelukast [Singulair] 10 mg PO HS 06/15/22 11/30/24 History Albuterol Inhaler [Ventolin Hfa 1 - 2 puff INHALATION Q6H PRN #1 07/24/24 11/30/24 Rx Inhaler] each Azithromycin [Zithromax] See Rx Instructions .ROUTE .COMPLEX 11/30/24 11/30/24 History Allergies Allergy/AdvReac Type Severity Reaction Status Date / Time No Known Allergies Allergy Verified 08/03/24 12:10 Physical Exam Vitals: Vital Signs Temp Pulse Resp BP Pulse Ox 11/30/24 13:51 98.1 F 90 16 139/89 94 L Intake and Output 11/29/24 11/30/24 11/30/24 22:59 06:59 14:59 Other: Weight 104.326 kg Sleep Note - Sleep Data ESS Total: 4 - Sleep Note Sleep Note: Temperature: 98.1 F Pulse Rate: 90 Respiratory Rate: 16 Blood Pressure: 139/89 SpO2: 94 Height: 5 ft Weight: 104.326 kg BMI: Neck Circumference: 15
== END ==
LOC: 3 N SLEEP 13:28
PROVIDERS: ATTEND Internal Medicine
DX: G47.33 Obstructive sleep apnea (adult) (pediatric) (principal); E66.9 Obesity, unspecified; I10 Essential (primary) hypertension; J45.909 Unspecified asthma, uncomplicated; E11.8 Type 2 diabetes mellitus with unspecified complications; D50.9 Iron deficiency anemia, unspecified; K21.9 Gastro-esophageal reflux disease without esophagitis; K20.0 Eosinophilic esophagitis; Z68.42 Body mass index [BMI] 45.0-49.9, adult; Z91.09 Other allergy status, other than to drugs and biological substances
CPT/HCPCS: 99211

== ENCOUNTER → 2024-12-06 | Outpatient (CLI) | payer BC ==
--- NOTE | 2024-12-06 16:02 | MM ---
Reason for Exam: Screening (asymptomatic). Last mammogram was performed 1 year(s) and 2 month(s) ago. Patient History: Menarche at age 10. First Full-Term at age 22. Postmenopausal. Patient has history of breast feeding. 04/08/2012, Benign Core Biopsy on the right side. 04/01/1998, Benign Excisional Biopsy on the left side. Paternal grandmother had breast cancer. Paternal aunt had breast cancer, age 65. Risk Values: Daniela 5 year model risk: 2.3%. NCI Lifetime model risk: 8.0%. Prior Study Comparison: 03/04/2020 Bilateral Screening Mammogram, [facility]. 10/15/2022 Bilateral MG screening mammo w CAD, [facility]. 10/18/2023 Bilateral MG 3D screening mammo w/cad, [facility]. Tissue Density: There are scattered areas of fibroglandular density. Findings: Analyzed By CAD. Mammotome biopsy clip in the right breast is redemonstrated. Stable small chronic nodularity anteriorly in the right breast. There is no suspicious group of microcalcifications or new suspicious mass in either breast. Overall Assessment: Benign, BI-RAD 2 Management: Screening Mammogram of both breasts in 1 year. . Patient should continue monthly self-breast exams. A clinical breast exam by your physician is recommended on an annual basis. This exam should not preclude additional follow-up of suspicious palpable abnormalities. Note on Daniela scores and lifetime risk: 1. A Daniela score greater than 3% is considered moderate risk. If this is the case, consider specialist referral to assess eligibility for a risk reducing agent. 2. If overall lifetime risk for the development of breast cancer is 20% or higher, the patient may qualify for future screening with alternating mammogram and breast MRI. [facility], , 12/06/2024 3:58 PM. Electronically signed and approved by: Amrit Lai M.D.
--- NOTE | 2024-12-06 16:02 | BD ---
EXAMINATION TYPE: Axial Bone Density DATE OF EXAM: 12/06/2024 CLINICAL HISTORY: 64 years old Female. ICD-10 CODE: M89.9 DISORDER OF BONE , Additional History: Height: 60.25 Weight: 228 FRAX RISK QUESTIONS: Family History (Parent hip fracture): yes History of Fracture in Adulthood: no Secondary Osteoporosis: no RISK FACTORS HISTORY OF: Surgery to Spine/Hip(right/left)/Wrist (right/left): no MEDICATIONS: Thyroid Medications: no Osteoporosis Medications: no EXAM MEASUREMENTS: Bone mineral densitometry was performed using the [employer] System. Bone mineral density as measured about the Lumbar spine is: ----- L1-L4(G/cm2): 1.211 T Score Values are as follows: ----- L1: -0.6 ----- L2: 0.0 ----- L3: 1.4 ----- L4: -0.1 ----- L1-L4: 0.3 Z Score Values are as follows: ----- L1: -0.2 ----- L2: 0.5 ----- L3: 1.8 ----- L4: 0.3 ----- L1-L4: 0.7 Bone mineral density baseline Bone mineral density about the R hip (g/cm2): 0.901 Bone mineral density about the L hip (g/cm2): 0.988 T Score values are as follows: -----R Neck: -2.6 -----L Neck: -2.2 -----R Total: -0.8 -----L Total: -0.2 Z Score values are as follows: -----R Neck: -1.8 -----L Neck: -1.5 -----R Total: -0.4 -----L Total: 0.3 Bone mineral density baseline FRAX%s: The graph provided illustrates a 20.8% chance for a major osteoporotic fx and a 3.0% chance f or the hips probability for fx in 10 years time. IMPRESSION: Osteoporosis (T Score less than -2.5) femoral neck level right hip. There is increased fracture risk and therapy is usually indicated based on age. Re-Screen 1-2 years. NOTE: T-SCORE=SD OF THE YOUNG ADULT MEAN. [facility], , 12/06/2024 3:59 PM
== END | disposition home or self-care (01) ==
LOC: RADMAMWWP 14:30
PROVIDERS: ATTEND Family Medicine
DX: Z12.31 Encounter for screening mammogram for malignant neoplasm of breast (principal); R92.323 Mammographic fibroglandular density, bilateral breasts; Z78.0 Asymptomatic menopausal state; Z80.3 Family history of malignant neoplasm of breast; M81.0 Age-related osteoporosis without current pathological fracture; M85.852 Other specified disorders of bone density and structure, left thigh
CPT/HCPCS: 77063; 77067; 77080